=== PATIENT | female | born 1965 | race Caucasian/White ===

== ENCOUNTER 2020-12-11 15:32 | Inpatient (IN) ==
[2020-12-11] MEDS ORDERED: MoRPHine SULFATE 4 MG/ML 1 ML CARP\\VIAL IV STA (15:37)
[2020-12-11] MEDS ORDERED: MoRPHine SULFATE 4 MG/ML 1 ML CARP\\VIAL ONE (15:39)
[2020-12-11] MEDS ORDERED: DIPHTHERIA/TETANUS/PERTUSSIS 0.5 ML SYR/VIAL IM ONE (15:49)
[2020-12-11] MEDS ORDERED: MoRPHine SULFATE 2 MG/ML CARP IV PRN (15:51)
--- NOTE | 2020-12-11 15:53 | Emergency Department Note ---
Impression & Plan Fractured tibia and fibula ED Provider Note NAME: SAHARA BLANK AGE: 55 SEX: F ARRIVES VIA: Ambulance INFORMANT: Patient, ED PROVIDER(S): Albert Perez MD CHIEF COMPLAINT: Left leg fracture. 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 She was given 2 g of Ancef by EMS. There is a punctate wound at the site of deformity of the lower third of her left lower leg. Distal PMS intact. Prior to today the patient denies any recent fevers, chills, cough, congestion, GI or symptoms. On arrival the patient is uncomfortable, but in NAD, AF with HR 100s and BP 170s/110s in the setting of her pain and VS otherwise stable. Left lower leg distal third deformity with punctate wound at the site of deformity of the lower third of her left lower leg. Distal PMS intact. Unable to probe deeply with sterile swab and so open fx less likely at this time. Case was d/w with EDVIN Sears orthopedic surgery on-call. Appreciate recommendation for medicine admission and plan for OR tomorrow. Leg splint per procedure not. Patient agrees with plan for admission. WBC, H/H and platelets within normal limits. Chemistry without metabolic acidosis. Creatinine 1.23 consistent with patient's clinically dry appearance. LFTs are unremarkable. COVID-19 PCR was negative. Case was d/w Magda Lubin PAC, with Dr. Su Man hospitalist who will evaluate the patient for admission. Triage Nursing notes reviewed and agree them. Prior medical records reviewed Vital Signs: reviewed and remarkable for tachycardia and hypertension in setting of pain. Differential diagnosis: Fracture, subluxation, dislocation, contusion, ligamentous injury, neurovascular, compartment syndrome, rhabdomyolysis, as well as other pathologies. ER treatment provided: See below. Diagnostics interpreted by me: Cardiac Monitoring: An order for continuous cardiac monitoring was placed and demonstrated normal sinus rhythm, 96 bpm, no ectopy. Laboratory studies: See below Imaging studies: See below Consultation(s): Dr. Sears, [facility] [place] orthopedic surgery on-call. Rose Burgos, Magda PAC, with Dr. Su Man hospitalist who will evaluate the patient for admission. 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 She was given 2 g of Ancef by EMS. There is a punctate wound at the site of deformity of the lower third of her left lower leg. Distal PMS intact. Prior to today the patient denies any recent fevers, chills, cough, congestion, GI or symptoms. ROS: See above HPI for pertinent positives & negatives. A total of 10 systems reviewed and were otherwise negative. PAST MEDICAL HISTORY:See Below PAST SURGICAL HISTORY:See Below FAMILY HISTORY:See Below SOCIAL HISTORY:See Below HOME MEDICATIONS:See Below ALLERGIES:See Below VITALS:See Below PHYSICAL EXAMINATION: GENERAL: Awake, alert, uncomfortable-appearing, in no distress HENT: Normocephalic, atraumatic. Oropharynx unremarkable. EYES: Normal conjunctiva. Sclera non-icteric. NECK: Supple. No nuchal rigidity. FROM. No JVD. RESPIRATORY: Clear to auscultation. CARDIAC: Regular rate, normal rhythm. Extremities warm and well perfused. Pulses equal. ABDOMEN: Soft, non-distended. No tenderness to palpation. No rebound or guarding. No masses. RECTAL: Deferred. MUSCULOSKELETAL: Chest examination reveals no tenderness. The back is symmetrical on inspection without obvious abnormality. There is no CVA tenderness to palpation. No joint edema. LOWER EXTREMITIES: Left lower leg distal third deformity with punctate wound at the site of deformity of the lower third of her left lower leg. Distal PMS intact. Unable to probe deeply with sterile swab and so open fx less likely at this time. NEURO: Normal sensorium. No sensory or motor deficits noted. SKIN: No rash or jaundice noted. ED COURSE: Procedures: Splint Care: Ortho glass splint was placed by the broker associate per my direction, with I applied gentle in-line traction for degree for reduction. I examined the splint and confirmed proper application/placement/position. Neurovascular status was intact both proximal and distal to the splinted area. Patient tolerated splinting well. Albert Perez MD Past Med/Surg History Medical History (Updated 12/12/20 @ 15:26 by Adolfo Jackson PA-C) Ascending aortic dissection Fractured tibia and fibula HTN (hypertension) Pleural effusion, bilateral Pneumonia due to COVID-19 virus Postcardiotomy syndrome Type 2 diabetes mellitus Surgical History History of appendectomy History of History of hysterectomy History of tonsillectomy Hx of sinus surgery S/P aortic dissection repair emergent surgical repair by Dr. Magana with replacement of the ascending aorta and hemiarch with a 20mm Gelwave graft. 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: No Beliefs That Will Affect Care: Catholic marital status: Current Living Situation: Spouse current occupation: Retired Other Information That Helps Us Care for You: No Feels Safe at Home: Yes Safety Concerns: Feels Safe At This Time Assistive Devices: None Allergies Allergies Allergy/AdvReac Type Severity Reaction Status Date / Time lisinopril AdvReac Intermediate Cough Verified 12/11/20 17:48 Home Meds Home Medications Medication Instructions Recorded Confirmed metformin 500 mg tablet 500 mg PO BIDM 02/15/19 12/11/20 amlodipine 5 mg tablet 10 mg PO DAILY 04/14/20 12/11/20 potassium chloride 20 mEq 20 meq PO DAILY 05/23/20 12/11/20 tablet,extended release empagliflozin 10 mg tablet 10 mg PO DAILY 12/11/20 12/11/20 (Jardiance) Previous Rx's Medication Instructions Recorded furosemide 40 mg tablet 40 mg PO UD #0 tab 05/26/20 metoprolol tartrate 50 mg tablet 150 mg PO BID #180 tab 05/26/20 omeprazole magnesium 20 mg 20 mg PO DAILY #30 tab 05/26/20 tablet,delayed release (Prilosec OTC) rosuvastatin 10 mg tablet (Crestor) 10 mg PO QAM #30 tab 05/26/20 spironolactone 25 mg tablet 12.5 mg PO DAILY #30 tab 05/26/20 Results & Data (ED) Vital Signs Vital Signs - 24 hr 12/11/20 15:35 12/11/20 15:39 12/11/20 15:50 Temperature 37.2 C Temperature Source Oral Pulse Rate 100 H 100 H Pulse Rate from SpO2 Sensor 100 H Respiratory Rate 19 31 H Respiratory Effort / Characteristics Non-Labored Spontaneous Respiratory Depth Normal Respiratory Pattern Regular Blood Pressure 170/110 H 170/110 H Blood Pressure Mean 130 130 Blood Pressure Position Lying Pulse Oximetry 100 100 100 Oxygen Delivery Method Room Air Room Air Oxygen Flow Rate Sepsis Recent Fever Within 48 Hours No Sepsis New/Unexplained Change in Mental Status N/A Sepsis Action Taken by Nursing No Action Required 12/11/20 16:40 12/11/20 17:00 12/11/20 17:30 Temperature Temperature Source Pulse Rate 90 99 H 84 Pulse Rate from SpO2 Sensor 90 99 H 84 Respiratory Rate 16 19 Respiratory Effort / Characteristics Respiratory Depth Respiratory Pattern Blood Pressure 151/91 H 164/100 H 140/100 Blood Pressure Mean 111 121 113 Blood Pressure Position Pulse Oximetry 100 100 100 Oxygen Delivery Method Nasal Cannula Oxygen Flow Rate 2 Sepsis Recent Fever Within 48 Hours Sepsis New/Unexplained Change in Mental Status Sepsis Action Taken by Nursing Laboratory Data Attestation: I reviewed the patient's lab results. Result diagrams: 12/12/20 06:37 12/12/20 06:37 Lab Results 12/11/20 12/11/20 12/11/20 Range/Units 16:09 16:09 16:24 WBC (4.8-10.8) K/uL RBC (4.2-5.4) M/uL Hgb (12.0-16.0) g/dL Hct (37-47) % MCV (80-100) fL MCH (25-34) pg MCHC (32-36) g/dL RDW Std Deviation (36.4-46.3) fL RDW Coeff of Elaina (11.5-14.5) % Plt Count (130-400) K/uL MPV (7.4-10.4) fL Immature Gran % (Auto) % Neut % (Auto) % Lymph % (Auto) % Garland % (Auto) % Eos % (Auto) % Baso % (Auto) % Neut # (Auto) (1.4-6.5) K/uL Lymph # (Auto) (1.2-3.4) K/uL Garland # (Auto) (0.11-0.59) K/uL Eos # (Auto) (0-0.5) K/uL Baso # (Auto) (0-0.2) K/uL Immature Gran # (Auto) (0.00-0.02) K/uL PT 10.2 (9.0-12.0) Seconds INR 1.0 (0.9-1.1) Sodium (136-145) mmol/L Potassium (3.5-5.1) mmol/L Chloride (98-107) mmol/L Carbon Dioxide (21-32) mmol/L Anion Gap (3-11) BUN (7-18) mg/dl Creatinine (0.6-1.2) mg/dl Est Cr Clr Drug Dosing ml/min Est GFR ( Amer) ml/min Est GFR (Non-Af Amer) ml/min BUN/Creatinine Ratio (10-20) Glucose (70-99) mg/dl Calcium (8.5-10.1) mg/dl Total Bilirubin (0.2-1) mg/dl AST (15-37) U/L ALT (12-78) U/L Alkaline Phosphatase (45-117) U/L Total Protein (6.4-8.2) gm/dl Albumin (3.4-5.0) gm/dl Globulin (2.5-4.0) gm/dl Albumin/Globulin Ratio (0.9-2) COVID-19 Eval Order Covid19 at [facility] SARS-CoV-2 (PCR) NEGATIVE (Negative) Blood Type Antibody Screen 12/11/20 12/11/20 12/11/20 Range/Units 16:24 16:24 16:25 WBC 6.33 (4.8-10.8) K/uL RBC 4.36 (4.2-5.4) M/uL Hgb 12.8 (12.0-16.0) g/dL Hct 38.1 (37-47) % MCV 87.4 (80-100) fL MCH 29.4 (25-34) pg MCHC 33.6 (32-36) g/dL RDW Std Deviation 41.9 (36.4-46.3) fL RDW Coeff of Elaina 13.1 (11.5-14.5) % Plt Count 282 (130-400) K/uL MPV 10.2 (7.4-10.4) fL Immature Gran % (Auto) 0.2 % Neut % (Auto) 69.4 % Lymph % (Auto) 25.4 % Garland % (Auto) 4.1 % Eos % (Auto) 0.6 % Baso % (Auto) 0.3 % Neut # (Auto) 4.39 (1.4-6.5) K/uL Lymph # (Auto) 1.61 (1.2-3.4) K/uL Garland # (Auto) 0.26 (0.11-0.59) K/uL Eos # (Auto) 0.04 (0-0.5) K/uL Baso # (Auto) 0.02 (0-0.2) K/uL Immature Gran # (Auto) 0.01 (0.00-0.02) K/uL PT (9.0-12.0) Seconds INR (0.9-1.1) Sodium 135 L (136-145) mmol/L Potassium 3.6 (3.5-5.1) mmol/L Chloride 102 (98-107) mmol/L Carbon Dioxide 23 (21-32) mmol/L Anion Gap 10.0 (3-11) BUN 24 H (7-18) mg/dl Creatinine 1.23 H (0.6-1.2) mg/dl Est Cr Clr Drug Dosing 48.7 ml/min Est GFR ( Amer) 57.2 ml/min Est GFR (Non-Af Amer) 49.3 ml/min BUN/Creatinine Ratio 19.4 (10-20) Glucose 170 H (70-99) mg/dl Calcium 9.2 (8.5-10.1) mg/dl Total Bilirubin 0.3 (0.2-1) mg/dl AST 20 (15-37) U/L ALT 25 (12-78) U/L Alkaline Phosphatase 68 (45-117) U/L Total Protein 8.0 (6.4-8.2) gm/dl Albumin 3.7 (3.4-5.0) gm/dl Globulin 4.3 H (2.5-4.0) gm/dl Albumin/Globulin Ratio 0.9 (0.9-2) COVID-19 Eval Order SARS-CoV-2 (PCR) (Negative) Blood Type A Positive Antibody Screen NEGATIVE Administered Medications Amlodipine Besylate (Amlodipine Besylate 5 Mg Tab) 10 mg PO DAILY ZOHREH Stop: 01/11/21 08:59 Last Admin: 12/12/20 09:01 Dose: Not Given Documented by: [id number] Aspirin (Aspirin 81 Mg Ectab) 81 mg PO BID ZOHREH Stop: 01/11/21 20:59 Last Admin: 12/12/20 21:24 Dose: 81 mg Documented by: [id number] Docusate Sodium (Docusate Sodium 100 Mg Cap) 100 mg PO BID ZOHREH Stop: 01/11/21 20:59 Last Admin: 12/12/20 21:24 Dose: 100 mg Documented by: [id number] Cefazolin Sodium (Ancef 3000mg) 65 mls @ 130 mls/hr IV PREOP ZOHREH; Protocol Stop: 12/13/20 05:59 Last Infusion: 12/12/20 19:30 Dose: 0 mls/hr Documented by: [id number] Admin: 12/12/20 15:37 Dose: 130 mls/hr Documented by: [id number] Sodium Chloride (Nss 1000ml) 1,000 mls @ 100 mls/hr IV .Q10H ZOHREH Stop: 12/13/20 19:44 Last Admin: 12/12/20 19:59 Dose: 100 mls/hr Documented by: [id number] Cefazolin Sodium (Ancef 1000mg) 1,000 mg in 7.5 mls @ 2.5 mls/min IV Q8H ZOHREH; Protocol Stop: 12/13/20 07:02 Last Admin: 12/12/20 22:34 Dose: 2.5 mls/min Documented by: [id number] Insulin Aspart (Insulin Aspart 100 Units/Ml 3 Ml Pen) 0 units SC ACHS ZOHREH; Protocol Stop: 01/11/21 22:29 Last Admin: 12/12/20 22:32 Dose: 3 units Documented by: [id number] Cosigned by: [id number] Metoprolol Tartrate (Metoprolol Tartrate 50 Mg Tab) 150 mg PO BID [facility] Stop: 01/10/21 21:29 Last Admin: 12/12/20 21:24 Dose: 150 mg Documented by: [id number] Admin: 12/12/20 09:01 Dose: Not Given Documented by: [id number] Admin: 12/11/20 22:31 Dose: 150 mg Documented by: [id number] Morphine Sulfate (Morphine Sulfate 4 Mg/Ml 1 Ml Carp\Vial) 4 mg IV Q3H PRN PRN Reason: Pain (6,7,8,9,10) Stop: 12/25/20 21:14 Last Admin: 12/12/20 11:36 Dose: 4 mg Documented by: [id number] Admin: 12/12/20 07:07 Dose: 4 mg Documented by: [id number] Ondansetron HCl (Ondansetron Inj 2 Mg/Ml 2 Ml Vial) 4 mg IV Q6H PRN PRN Reason: Nausea Stop: 01/10/21 21:14 Last Admin: 12/12/20 07:07 Dose: 4 mg Documented by: [id number] Admin: 12/11/20 21:25 Dose: 4 mg Documented by: [id number] Pantoprazole Sodium (Pantoprazole 40 Mg Tab) 40 mg PO DAILY [facility]; Protocol Stop: 01/11/21 08:59 Last Admin: 12/12/20 09:01 Dose: Not Given Documented by: [id number] Rosuvastatin Calcium (Rosuvastatin Calcium 10 Mg Tab) 10 mg PO QAM [facility] Stop: 01/11/21 08:59 Last Admin: 12/12/20 09:01 Dose: Not Given Documented by: [id number] Senna/Docusate Sodium (Docusate Sodium/Senna 50/8.6mg Tab) 2 tab PO HS [facility] Stop: 01/10/21 21:29 Last Admin: 12/12/20 21:25 Dose: 2 tab Documented by: [id number] Admin: 12/11/20 22:31 Dose: Not Given Documented by: [id number] Spironolactone (Spironolactone 12.5 Mg Tab) 12.5 mg PO DAILY [facility] Stop: 01/11/21 08:59 Last Admin: 12/12/20 09:00 Dose: Not Given Documented by: [id number] Discontinued Medications Bupivacaine HCl (Bupivacaine 0.5 % 5 Mg/1 Ml Mpf 30ml Vial) Confirm Administered Dose 30 ml .ROUTE .STK-MED ONE Stop: 12/12/20 15:36 Last Admin: 12/12/20 19:43 Dose: Not Given Documented by: [id number] Diphtheria/Pertussis/Tetanus Vacc (Diphtheria/Tetanus/Pertussis 0.5 Ml Syr/Vial) 0.5 ml IM .ONCE ONE Stop: 12/11/20 15:50 Last Admin: 12/11/20 17:04 Dose: 0.5 ml Documented by: [id number] Epinephrine HCl (Epinephrine Inj 1 Mg/Ml Amp) Confirm Administered Dose 1 mg .ROUTE .STK-MED ONE Stop: 12/12/20 15:36 Last Admin: 12/12/20 19:43 Dose: Not Given Documented by: [id number] Heparin Sodium (Porcine) (Heparin Sod 5,000 Unit/0.5 Ml Vial) 5,000 units SQ NOW STA Stop: 12/11/20 18:11 Last Admin: 12/11/20 18:38 Dose: Not Given Documented by: [id number] Sodium Chloride (Nss 1000ml) 1,000 mls @ 125 mls/hr IV .Q8H [facility]RE[facility] Stop: 01/10/21 15:59 Last Infusion: 12/11/20 21:17 Dose: 0 mls/hr Documented by: [id number] Admin: 12/11/20 16:00 Dose: 125 mls/hr Documented by: [id number] Lactated Ringer's (Lr) 1,000 mls @ 75 mls/hr IV .[id number] [facility]RE[facility] Stop: 12/12/20 10:34 Last Infusion: 12/12/20 10:36 Dose: 0 mls/hr Documented by: [id number] Admin: 12/11/20 21:30 Dose: 75 mls/hr Documented by: [id number] Promethazine HCl 12.5 mg/ (Sodium Chloride) 50.5 mls @ 202 mls/hr IV Q6H PRN PRN Reason: Nausea And Vomiting Stop: 01/10/21 22:59 Last Infusion: 12/12/20 19:30 Dose: 0 mls/hr Documented by: [id number] Infusion: 12/11/20 23:26 Dose: 0 mls/hr Documented by: [id number] Admin: 12/11/20 23:11 Dose: 202 mls/hr Documented by: [id number] Sodium Chloride (Nss 1000ml) 1,000 mls @ 15 mls/hr IV .Q24H ZOHREH Stop: 01/11/21 11:14 Last Infusion: 12/12/20 19:30 Dose: 0 mls/hr Documented by: [id number] Admin: 12/12/20 11:36 Dose: 15 mls/hr Documented by: [id number] Insulin Aspart (Insulin Aspart 100 Units/Ml 3 Ml Pen) 0 units SC Q6 [facility]; Protocol Stop: 01/10/21 21:44 Last Admin: 12/12/20 17:42 Dose: Not Given Documented by: [id number] Admin: 12/12/20 12:21 Dose: Not Given Documented by: [id number] Admin: 12/12/20 05:58 Dose: Not Given Documented by: [id number] Admin: 12/12/20 01:49 Dose: 2 units Documented by: [id number] Cosigned by: [id number] Admin: 12/11/20 22:30 Dose: 2 units Documented by: [id number] Cosigned by: [id number] Insulin Glargine (Insulin Glargine Solostar 100 Units/Ml 3 Ml Pen) 0 - 10 units SC BID [facility] Stop: 01/10/21 21:14 Last Admin: 12/11/20 21:52 Dose: Not Given Documented by: [id number] Morphine Sulfate (Morphine Sulfate 4 Mg/Ml 1 Ml Carp\Vial) 4 mg IV NOW STA Stop: 12/11/20 15:38 Last Admin: 12/11/20 15:40 Dose: 4 mg Documented by: [id number] Morphine Sulfate (Morphine Sulfate 4 Mg/Ml 1 Ml Carp\Vial) Confirm Administered Dose 4 mg .ROUTE .STK-MED ONE Stop: 12/11/20 15:40 Last Admin: 12/11/20 16:42 Dose: Not Given Documented by: [id number] Morphine Sulfate (Morphine Sulfate 2 Mg/Ml Carp) 2 mg IV Q1H PRN PRN Reason: Moderate Pain (Rating 3,4,5,6) Stop: 12/25/20 15:50 Last Admin: 12/11/20 17:00 Dose: 2 mg Documented by: [id number] Morphine Sulfate (Morphine Sulfate 4 Mg/Ml 1 Ml Carp\Vial) 4 mg IV Q1H PRN PRN Reason: Severe Pain (Rating 7,8,9,10) Stop: 12/25/20 15:50 Last Admin: 12/11/20 19:08 Dose: 4 mg Documented by: [id number] Admin: 12/11/20 17:57 Dose: 4 mg Documented by: [id number] Scopolamine (Scopolamine 1 Mg Tdsy) Confirm Administered Dose 1 mg TD .STK-MED ONE Stop: 12/12/20 14:54 Last Admin: 12/12/20 14:54 Dose: 1 mg Documented by: [id number] Imaging Data Radiologist's Impression: Tibia/Fibula X-Ray 12/11/20 15:37 XR tibia fibula LT 2V HISTORY: 55 years-old Female fracture acute trauma of the left lower leg COMPARISON: None TECHNIQUE: 2 views of the left tibia and fibula FINDINGS: Acute comminuted fracture of the mid to distal diaphyseal tibia demonstrating a few degrees of apex volar and lateral angulation with mild volar and lateral displacement of a few millimeters. Acute comminuted fracture of the distal fibular diaphysis demonstrates apex volar and lateral angulation with medial displacement of a few millimeters. Additionally, there is an acute fracture involving the distal aspect of the lateral malleolus. Ankle mortise appears intact. Soft tissue swelling of the lower leg and ankle. No opaque foreign body. IMPRESSION: 1. Acute, comminuted, angulated and mildly displaced fracture of the mid to distal tibial diaphysis. 2. Acute comminuted, angulated and displaced fracture of the distal fibula. ACT 112: Negative or not required by law. The above report was generated using voice recognition software. It may contain grammatical, syntax or spelling errors. Electronically signed by: Randy Ovalles M.D. 12/11/2020 4:27 PM Chest X-Ray 12/11/20 17:24 XR chest 1V portable HISTORY: 55 years-old Female pre op preoperative exam. No acute chest complaints COMPARISON: Chest radiograph 05/24/2020 TECHNIQUE: Portable AP view of the chest FINDINGS: Cardiac silhouette is enlarged. Prior median sternotomy. Calcified plaque of the thoracic aorta. No pneumothorax, pleural effusion, airspace consolidation or overt pulmonary edema. No acute fracture. IMPRESSION: No acute process. ACT 112: Negative or not required by law. The above report was generated using voice recognition software. It may contain grammatical, syntax or spelling errors. Electronically signed by: Randy Ovalles M.D. 12/11/2020 6:42 PM Discharge Plan Visit Data Chief Complaint: Leg Injury/Pain ED Provider: Albert Perez Discharge Problem: Fractured tibia and fibula Patient Disposition: Admitted As Inpatient Discharge Instructions Interventions: ED Discharge Assessment Last Done: 12/11/20 20:55
[2020-12-11] MEDS ORDERED: SODIUM CHLORIDE 0.9% 1000ML 1,000 ML IV SCH (16:00)
--- NOTE | 2020-12-11 16:28 | XRay Report ---
XR tibia fibula LT 2V HISTORY: 55 years-old Female fracture acute trauma of the left lower leg COMPARISON: None TECHNIQUE: 2 views of the left tibia and fibula FINDINGS: Acute comminuted fracture of the mid to distal diaphyseal tibia demonstrating a few degrees of apex v olar and lateral angulation with mild volar and lateral displacement of a few millimeters. Acute comminuted fracture of the distal fibular diaphysis demonstrates apex volar and lateral angulat ion with medial displacement of a few millimeters. Additionally, there is an acute fracture involving the distal aspect of the lateral malleolus. Ankle mortise appears intact. Soft tissue swelling of th e lower leg and ankle. No opaque foreign body. IMPRESSION: 1. Acute, comminuted, angulated and mildly displaced fracture of the mid to distal tibial diaphysis. 2. Acute comminuted, angulated and displaced fracture of the distal fibula. ACT 112: Negative or not required by law. The above report was generated using voice recognition software. It may contain grammatical, syntax o r spelling errors. Electronically signed by: Randy Ovalles M.D. 12/11/2020 4:27 PM
[2020-12-11 16:33] LABS: Basophils # (auto) 0.02 K/uL (0-0.2); Basophils % (auto) 0.3 %; Eosinophils # (auto) 0.04 K/uL (0-0.5); Eosinophils % (auto) 0.6 %; Hematocrit (blood only) 38.1 % (37-47); Hemoglobin 12.8 g/dL (12.0-16.0); Immature Granulocytes # (auto) 0.01 K/uL (0.00-0.02); Immature Granulocytes % (auto) 0.2 %; Lymphocytes # (auto) 1.61 K/uL (1.2-3.4); Lymphocytes % (auto) 25.4 %; Mean Corpuscular Hemoglobin 29.4 pg (25-34); Mean Corpuscular Hgb Conc 33.6 g/dL (32-36); Mean Corpuscular Volume 87.4 fL (80-100); Mean Platelet Volume 10.2 fL (7.4-10.4); Monocytes # (auto) 0.26 K/uL (0.11-0.59); Monocytes % (auto) 4.1 %; Neutrophils # (auto) 4.39 K/uL (1.4-6.5); Neutrophils % (auto) 69.4 %; Platelet Count 282 K/uL (130-400); RDW Coefficient of Variation 13.1 % (11.5-14.5); RDW Standard Deviation 41.9 fL (36.4-46.3); Red Blood Count 4.36 M/uL (4.2-5.4); White Blood Count 6.33 K/uL (4.8-10.8)
[2020-12-11 16:45] LABS: Prothrombin Time 10.2 Seconds (9.0-12.0)
[2020-12-11 16:50] LABS: Albumin Level 3.7 gm/dl (3.4-5.0); BUN Creatinine Ratio 19.4 (10-20); Calcium 9.2 mg/dl (8.5-10.1); Creatinine Clr Calc Pharmacy 48.7 ml/min; Est GFR (African American) 57.2 ml/min; Est GFR (Non-African American) 49.3 ml/min; Potassium 3.6 mmol/L (3.5-5.1)
[2020-12-11 16:53] LABS: Albumin Globulin Ratio 0.9 (0.9-2); Bilirubin,Total 0.3 mg/dl (0.2-1); Globulin 4.3 gm/dl (2.5-4.0)
[2020-12-11] MEDS: MoRPHine SULFATE 4 MG/ML 1 ML CARP\\VIAL IV PRN ×2 (17:57→19:08)
[2020-12-11] MEDS ORDERED: HEPARIN SOD 5,000 UNIT/0.5 ML VIAL SQ STA (18:10)
--- NOTE | 2020-12-11 18:39 | History & Physical Report ---
Date of Service December 11, 2020 Assessment & Plan (1) Fractured tibia and fibula: Plan: This is a 55-year-old female who has a past medical history of type a aortic dissection status post repair complicated by postoperative A. 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 Xray: IMPRESSION: 1. Acute, comminuted, angulated and mildly displaced fracture of the mid to distal tibial diaphysis. 2. Acute comminuted, angulated and displaced fracture of the distal fibula. admit to med/surg orthopedics consulted - discussed with Adolfo, OR tomorrow 12/12 obtain ecg/cxr for cardiac clearance Tdap administered in ED discussed case with Dr. 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 Goff Prescribed regimen of lasix, aldactone and metoprolol; however currently only taking metoprolol will hold lasix for now given pre op status (4) Type 2 diabetes mellitus: Plan: last a1c 8.4 on 12/07 hold metformin and Jardiance (pt takes sparingly) lantus/novolog per protocol consult glycemic pharmacy (5) HTN (hypertension): Plan: BP elevated in ED likely 2/2 to pain continue metoprolol and amlodipine monitor closely (6) DVT prophylaxis: Plan: hold for now given likely to OR in a.m. ; post operatively recommend chemical prophylaxis when hemostasis acheived Dispo: med/surg PCP: Юлия Full Code Pt was seen and examined in collaboration with Dr. Blue, please see addendum History of Present Illness Chief Complaint: Fall prior to arrival. Primary Care Provider: Gulshan Redman DO This is a 55-year-old female who has a past medical history of type a aortic dissection status post repair complicated by postoperative A. fib and post cardiotomy syndrome requiring thoracentesis of left lung x3 and treatment with anti-inflammatories and medical management, HTN, HLD, T2DM, hx covid-19, who presents to ED after sustaining mechanical fall. She states she was opening the garage door and felt like she might have slipped on a wet surface, felt her leg go out underneath her and fell on her left side. She had immediate pain and was unable to get up. EMS was summoned. There was initial concern for possible open fracture secondary to puncture wound to left lateral leg. She received 2g ancef by EMS. She had a puncture wound and obvious deformity to LLE. Xray obtained revealed Acute, comminuted, angulated and mildly displaced fracture of the mid to distal tibial diaphysis & Acute comminuted, angulated and displaced fracture of the distal fibula. Orthopedics was consulted to recommended closed reduction, splinting and plan for OR tomorrow. Pt currently complains of 9/10 pain. She denies numbness or tingling. Prior to todays fall she denies recent illness, f/c/s, chest pain, sob, cough, n/v/d, change in bowel or urinary habits. She follows closely with Dr. Goff and Tatiana Rose 2/ to hx of type a thoracic aorta dissection s/p repair. Her last echo was 05/2020 which revealed normal EF, grade 1 diastolic dysfunction, small pericardial effusion. She states she occasionally gets chest pain when walking up more than 5 steps. It does not happen every time but when it does it resolves immediately with rest. She also admits to stopping her lasix, aldactone and potassium. She states she talked to a provider and it was okay to do so. She denies any weight gain, orthopnea or edema. Her was at bedside and was replaced by their daughter. Allergies Allergy/AdvReac Type Severity Reaction Status Date / Time lisinopril AdvReac Intermediate Cough Verified 12/11/20 17:48 Home Medications Medication Instructions Recorded Confirmed Type metformin 500 mg tablet 500 mg PO BIDM 02/15/19 12/11/20 History amlodipine 5 mg tablet 10 mg PO DAILY 04/14/20 12/11/20 History potassium chloride 20 mEq 20 meq PO DAILY 05/23/20 12/11/20 History tablet,extended release furosemide 40 mg tablet 40 mg PO UD #0 tab 05/26/20 12/11/20 Rx metoprolol tartrate 50 mg tablet 150 mg PO BID #180 tab 05/26/20 12/11/20 Rx omeprazole magnesium 20 mg 20 mg PO DAILY #30 tab 05/26/20 12/11/20 Rx tablet,delayed release (Prilosec OTC) rosuvastatin 10 mg tablet (Crestor) 10 mg PO QAM #30 tab 05/26/20 12/11/20 Rx spironolactone 25 mg tablet 12.5 mg PO DAILY #30 tab 05/26/20 12/11/20 Rx empagliflozin 10 mg tablet 10 mg PO DAILY 12/11/20 12/11/20 History (Jardiance) acetaminophen 325 mg tablet 650 mg PO Q4H PRN #60 tab 12/15/20 Rx aspirin 81 mg tablet,delayed 81 mg PO BID #60 tab 12/15/20 Rx release oxycodone 5 mg tablet 10 mg PO Q4H PRN #20 tab 12/15/20 Rx polyethylene glycol 3350 17 gram 17 g PO DAILY PRN #14 ea 12/15/20 Rx oral powder packet (Miralax) sennosides 8.6 mg-docusate sodium 2 tab PO HS #10 tab 12/15/20 Rx 50 mg tablet (Senokot-S) oxycodone-acetaminophen 5 mg-325 1 tab PO Q6H PRN #30 tab 12/22/20 Rx mg tablet (Percocet) Past Med/Surg History Medical History Ascending aortic dissection Fractured tibia and fibula HTN (hypertension) Pleural effusion, bilateral Pneumonia due to COVID-19 virus Postcardiotomy syndrome Type 2 diabetes mellitus Surgical History History of appendectomy History of History of hysterectomy History of tonsillectomy Hx of sinus surgery S/P aortic dissection repair emergent surgical repair by Dr. Magana with replacement of the ascending aorta and hemiarch with a 20mm Gelwave graft. -03/2020 Family History Brother , 35 Sudden cardiac Sister , 65 Sudden cardiac Mother Sudden cardiac , Onset Age: 83 Social History Smoking Status: Never smoker Second Hand Exposure: No; Hx Alcohol Use: No Hx Substance Use: No Preferred Language: Com[place]an Communication Ability: Effective Birth Certificate Clerk Required: No Beliefs That Will Affect Care: Yazdanism marital status: Current Living Situation: Spouse current occupation: Retired Feels Safe at Home: Yes Assistive Devices: Walker Review of Systems Review of Systems: All systems reviewed & are unremarkable except as noted in HPI & below Physical Exam Physical Exam: Constitutional: WD/WN, F, in acute pain, vitals as above,lying in bed, pleasant, conversing easily Head: Normocephalic, Atraumatic Eyes: PERRL, conjunctivae normal, anicteric sclerae ENMT: external ear and nose normal, oropharynx normal Neck: trachea midline, no thyromegaly normal visual inspection Respiratory: normal respiratory effort, lungs clear to auscultation, no wheeze, rales, rhonchi. Normal insp/exp effort, no accessory muscle use Cardiovascular: RRR, no murmur, no edema Vessels: no JVD or carotid bruit Chest: sternal scar noted, normal inspection of chest Abdomen: normal bowel sounds, soft, nontender, no hepatosplenomegaly Musculoskeletal: no cyanosis or clubbing, +puncture wound to LLE with obvious deformity to L pretibial surface, NVI distally Skin: no rashes, warm and dry normal turgor Neurologic: PERRL, EOMI, accommodation nl, no face palsy, no dysarthria CN's II-XI intact bilaterally and moves all extremities Psychiatric: A+Ox3, euthymic affect Lymphatic: no cervical or axillary lymphadenopathy : deferred Results & Data Results & Data ([facility]) Vital Signs (Past 12 Hours) Vital Signs Temp Pulse Resp BP Pulse Ox 09/28/21 17:00 99 H 19 164/100 H 100 12/11/20 16:40 90 16 151/91 H 100 12/11/20 15:50 100 12/11/20 15:39 100 H 31 H 170/110 H 100 12/11/20 15:35 37.2 C 100 H 19 170/110 H 100 Diagnostic Findings Tibia/Fibula X-Ray 12/11/20 15:37 XR tibia fibula LT 2V HISTORY: 55 years-old Female fracture acute trauma of the left lower leg COMPARISON: None TECHNIQUE: 2 views of the left tibia and fibula FINDINGS: Acute comminuted fracture of the mid to distal diaphyseal tibia demonstrating a few degrees of apex volar and lateral angulation with mild volar and lateral displacement of a few millimeters. Acute comminuted fracture of the distal fibular diaphysis demonstrates apex volar and lateral angulation with medial displacement of a few millimeters. Additionally, there is an acute fracture involving the distal aspect of the lateral malleolus. Ankle mortise appears intact. Soft tissue swelling of the lower leg and ankle. No opaque foreign body. IMPRESSION: 1. Acute, comminuted, angulated and mildly displaced fracture of the mid to distal tibial diaphysis. 2. Acute comminuted, angulated and displaced fracture of the distal fibula. ACT 112: Negative or not required by law. The above report was generated using voice recognition software. It may contain grammatical, syntax or spelling errors. Electronically signed by: Randy Ovalles M.D. 12/11/2020 4:27 PM Medications Administered Medication List Sodium Chloride (Nss 1000ml) 1,000 mls @ 125 mls/hr IV .Q8H ZOHREH Stop: 01/10/21 15:59 Last Admin: 12/11/20 16:00 Dose: 125 mls/hr Documented by: [id number] Morphine Sulfate (Morphine Sulfate 2 Mg/Ml Carp) 2 mg IV Q1H PRN PRN Reason: Moderate Pain (Rating 3,4,5,6) Stop: 12/25/20 15:50 Last Admin: 12/11/20 17:00 Dose: 2 mg Documented by: [id number] Discontinued Medications Diphtheria/Pertussis/Tetanus Vacc (Diphtheria/Tetanus/Pertussis 0.5 Ml Syr/Vial) 0.5 ml IM .ONCE ONE Stop: 12/11/20 15:50 Last Admin: 12/11/20 17:04 Dose: 0.5 ml Documented by: [id number] Morphine Sulfate (Morphine Sulfate 4 Mg/Ml 1 Ml Carp\Vial) 4 mg IV NOW STA Stop: 12/11/20 15:38 Last Admin: 12/11/20 15:40 Dose: 4 mg Documented by: [id number] Morphine Sulfate (Morphine Sulfate 4 Mg/Ml 1 Ml Carp\Vial) Confirm Administered Dose 4 mg .ROUTE .STK-MED ONE Stop: 12/11/20 15:40 Last Admin: 12/11/20 16:42 Dose: Not Given Documented by: [id number] COVID-19 Results Results COVID-19 Adm Lab Results: RBC 3.24 M/uL (4.2-5.4) L 12/15/20 WBC 4.90 K/uL (4.8-10.8) 12/15/20 Hgb 9.3 g/dL (12.0-16.0) L 12/15/20 Hct 28.3 % (37-47) L 12/15/20 Plt Count 205 K/uL (130-400) 12/15/20 Neutrophils (%) (Auto) 60.2 % 12/12/20 Lymphocytes (%) (Auto) 30.8 % 12/12/20 Monocytes # (Auto) 0.42 K/uL (0.11-0.59) 12/12/20 Eosinophils # (Auto) 0.05 K/uL (0-0.5) 12/12/20 Immature Granulocyte % (Auto) 0.2 % 12/12/20 Neutrophils # (Auto) 3.36 K/uL (1.4-6.5) 12/12/20 Lymphocytes # (Auto) 1.72 K/uL (1.2-3.4) 12/12/20 Monocytes # (Auto) 0.42 K/uL (0.11-0.59) 12/12/20 Eosinophils # (Auto) 0.05 K/uL (0-0.5) 12/12/20 Basophils # (Auto) 0.02 K/uL (0-0.2) 12/12/20 Immature Granulocyte # (Auto) 0.01 K/uL (0.00-0.02) 12/12/20 Na 139 mmol/L (136-145) 12/15/20 K 3.9 mmol/L (3.5-5.1) 12/15/20 Cl 109 mmol/L (98-107) H 12/15/20 CO2 23 mmol/L (21-32) 12/15/20 Anion Gap 7.0 (3-11) 12/15/20 BUN 20 mg/dl (7-18) H 12/15/20 Creatinine 1.06 mg/dl (0.6-1.2) 12/15/20 BUN/Creatinine Ratio 19.2 (10-20) 12/15/20 Glucose Level 143 mg/dl (70-99) H 12/15/20 Ca 8.4 mg/dl (8.5-10.1) L 12/15/20 Phosphorus Level 3.0 mg/dl (2.5-4.9) 12/15/20 Total Bilirubin 0.6 mg/dl (0.2-1) 12/12/20 AST/SGOT 10 U/L (15-37) L 12/12/20 ALT/SGPT 21 U/L (12-78) 12/12/20 Alkaline Phosphatase 69 U/L (45-117) 12/12/20 Total Protein 7.5 gm/dl (6.4-8.2) 12/12/20 Albumin 3.5 gm/dl (3.4-5.0) 12/12/20 Globulin 4.0 gm/dl (2.5-4.0) 12/12/20 Albumin/Globulin Ratio 0.9 (0.9-2) 12/12/20 PTT 26.0 Seconds (21.0-31.0) 12/12/20 INR 1.0 (0.9-1.1) 12/12/20 COVID-19 PCR NEGATIVE (Negative) 12/11/20 Chest X-Ray 12/11/20 Code Status & VTE Plan Code Status FULL CODE VTE Prophylaxis Plan VTE Prophylaxis will be ordered: No Supervising Physician Co-Signing Physician Notes Pt was seen and examined. Agreed with Rose GAMA exam, assessment and plan. 55-year-old female who has a past medical history of type a aortic dissection status post repair complicated by postoperative A. fib and post cardiotomy syndrome requiring thoracentesis of left lung x3 and treatment with anti- inflammatories and medical management, HTN, HLD, T2DM, hx covid-19 presents to ED after sustaining mechanical fall. Pt said that she fell when she was opened the garage door where she slipped. Xray done in the ER showed Acute, comminuted, angulated and mildly displaced fracture of the mid to distal tibial diaphysis & Acute comminuted, angulated and displaced fracture of the distal fibula. Orthopedics was consulted to recommended closed reduction, splinting and plan for OR tomorrow. she had hx of type a thoracic aorta dissection s/p repair. Her last echo was 05/2020 which revealed normal EF, grade 1 diastolic dysfunction, small pericardial effusion. Currently denies any chest pain, palpitation and SOB. Continue pain control. Cardiology consult for preop surgery clearance. Will make NPO after midnight. MD Su
--- NOTE | 2020-12-11 18:43 | XRay Report ---
XR tibia fibula LT 2V HISTORY: 55 years-old Female post splint acute left lower leg pain with fractures COMPARISON: Tibia and fibula radiographs of same day at 3:42 PM TECHNIQUE: 2 views of the left tibia and fibula FINDINGS: Acute comminuted displaced and angulated distal tibial and fibular fractures redemonstrated with unch anged alignment. Status post casting. Soft tissue swelling redemonstrated. No opaque foreign body. IMPRESSION: Status post casting of the acute, comminuted, angulated and displaced distal tibial and f ibular fractures with unchanged alignment. ACT 112: Negative or not required by law. The above report was generated using voice recognition software. It may contain grammatical, syntax o r spelling errors. Electronically signed by: Randy Ovalles M.D. 12/11/2020 6:41 PM
--- NOTE | 2020-12-11 18:44 | XRay Report ---
XR chest 1V portable HISTORY: 55 years-old Female pre op preoperative exam. No acute chest complaints COMPARISON: Chest radiograph 05/24/2020 TECHNIQUE: Portable AP view of the chest FINDINGS: Cardiac silhouette is enlarged. Prior median sternotomy. Calcified plaque of the thoracic aorta. No p neumothorax, pleural effusion, airspace consolidation or overt pulmonary edema. No acute fracture. IMPRESSION: No acute process. ACT 112: Negative or not required by law. The above report was generated using voice recognition software. It may contain grammatical, syntax o r spelling errors. Electronically signed by: Randy Ovalles M.D. 12/11/2020 6:42 PM
[2020-12-11] MEDS ORDERED: ACETAMINOPHEN 325 MG TAB PO PRN (21:15)
[2020-12-11] MEDS ORDERED: DEXTROSE 50% 50 ML SYRINGE IV PRN (21:15)
[2020-12-11] MEDS ORDERED: GLUCOSE 40% GEL 15 GM TUBE PO PRN (21:15)
[2020-12-11] MEDS ORDERED: INSULIN GLARGINE SOLOSTAR 100 UNITS/ML 3 ML PEN SC SCH (21:15)
[2020-12-11] MEDS ORDERED: CARBOHYDRATES FOR HYPOGLYCEMIA PO PRN (21:15)
[2020-12-11] MEDS ORDERED: NALOXONE HCL 0.4 MG/1 ML VIAL/CARP IV PRN (21:15)
[2020-12-11] MEDS ORDERED: GLUCOSE 10 TABS/TUBE PO PRN (21:15)
[2020-12-11] MEDS ORDERED: LACTATED RINGER'S 1,000 ML IV SCH (21:15)
[2020-12-11] MEDS ORDERED: POLYETHYLENE (MIRALAX) 17 GM PACK PO PRN (21:15)
[2020-12-11] MEDS ORDERED: oxyCODONE/ACETAMINOPHEN 5mg/325mg TAB PO PRN (21:15)
[2020-12-11] MEDS ORDERED: PHARMACY GLYCEMIC MGMT CONSULT PRN (21:15)
[2020-12-11] MEDS ORDERED: ALUMINUM/MAGNESIUM SUSP 30 ML UDC PO PRN (21:15)
[2020-12-11] MEDS ORDERED: MAGNESIUM HYDROXIDE SUSP 30 ML UDC PO PRN (21:15)
[2020-12-11] MEDS ORDERED: bisacodyL 10 MG SUPP PR PRN (21:15)
[2020-12-11] MEDS ORDERED: GLUCAGON FOR INJ 1 MG VIAL SQ PRN (21:15)
[2020-12-11] MEDS: ONDANSETRON INJ 2 MG/ML 2 ML VIAL IV PRN (21:25)
[2020-12-11] MEDS ORDERED: ONDANSETRON INJ 2 MG/ML 2 ML VIAL IV PRN (21:58)
[2020-12-11] MEDS: INSULIN ASPART 100 UNITS/ML 3 ML PEN SC SCH (22:30)
[2020-12-11] MEDS: DOCUSATE SODIUM/SENNA 50/8.6MG TAB PO SCH (22:31)
[2020-12-11] MEDS: METOPROLOL TARTRATE 50 MG TAB PO SCH (22:31)
[2020-12-11] MEDS ORDERED: PROMETHAZINE HCL 12.5 MG in SODIUM CHLORIDE 0.9% 50 ML IV PRN (23:00)
[2020-12-12] MEDS: INSULIN ASPART 100 UNITS/ML 3 ML PEN SC SCH ×5 (01:49→22:32)
[2020-12-12 06:59] LABS: Basophils # (auto) 0.02 K/uL (0-0.2); Basophils % (auto) 0.4 %; Eosinophils # (auto) 0.05 K/uL (0-0.5); Eosinophils % (auto) 0.9 %; Hematocrit (blood only) 38.5 % (37-47); Hemoglobin 12.6 g/dL (12.0-16.0); Immature Granulocytes # (auto) 0.01 K/uL (0.00-0.02); Immature Granulocytes % (auto) 0.2 %; Lymphocytes # (auto) 1.72 K/uL (1.2-3.4); Lymphocytes % (auto) 30.8 %; Mean Corpuscular Hgb Conc 32.7 g/dL (32-36); Mean Corpuscular Volume 88.5 fL (80-100); Mean Platelet Volume 10.1 fL (7.4-10.4); Monocytes # (auto) 0.42 K/uL (0.11-0.59); Monocytes % (auto) 7.5 %; Neutrophils # (auto) 3.36 K/uL (1.4-6.5); Neutrophils % (auto) 60.2 %; Platelet Count 292 K/uL (130-400); RDW Coefficient of Variation 13.2 % (11.5-14.5); RDW Standard Deviation 43.1 fL (36.4-46.3); Red Blood Count 4.35 M/uL (4.2-5.4); White Blood Count 5.58 K/uL (4.8-10.8)
[2020-12-12] MEDS: ONDANSETRON INJ 2 MG/ML 2 ML VIAL IV PRN (07:07)
[2020-12-12] MEDS: MoRPHine SULFATE 4 MG/ML 1 ML CARP\\VIAL IV PRN ×2 (07:07→11:36)
[2020-12-12 07:08] LABS: Prothrombin Time 10.3 Seconds (9.0-12.0)
[2020-12-12 07:30] LABS: Estimated Average Glucose 197 mg/dl; Hemoglobin A1C 8.5 % (4.5-5.6)
[2020-12-12 07:32] LABS: Albumin Level 3.5 gm/dl (3.4-5.0); BUN Creatinine Ratio 19.2 (10-20); Calcium 9.2 mg/dl (8.5-10.1); Creatinine Clr Calc Pharmacy 55.9 ml/min; Est GFR (African American) 67.7 ml/min; Est GFR (Non-African American) 58.4 ml/min; Magnesium 2.1 mg/dl (1.8-2.4); Potassium 3.9 mmol/L (3.5-5.1)
[2020-12-12 07:35] LABS: Albumin Globulin Ratio 0.9 (0.9-2); Bilirubin,Total 0.6 mg/dl (0.2-1); Total Protein 7.5 gm/dl (6.4-8.2)
--- NOTE | 2020-12-12 08:24 | Hospitalist Progress Note ---
Date of Service December 12, 2020 Assessment & Plan (1) Fractured tibia and fibula: Plan: This is a 55-year-old female who has a past medical history of type a aortic dissection status post repair complicated by postoperative A. 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 Xray: IMPRESSION: 1. Acute, comminuted, angulated and mildly displaced fracture of the mid to distal tibial diaphysis. 2. Acute comminuted, angulated and displaced fracture of the distal fibula. admit to med/surg Orthopedics consulted - plan for OR today 12/12 obtain ecg/cxr for cardiac clearance Tdap administered in ED Discussed case with Dr. Goff who follows pt in cardiology clinic - saw patient for preop evaluation Echo - Mild concentric LVH. No regional wall motion abnormality noted. LVEF 55 to 60%. Aortic valve is trileaflet. Aortic stenosis is absent. There is no significant aortic regurg. Mild aortic root dilatation is present with surgical repair and replacement of the ascending aorta appears intact. Compared to prior study in May 2020, there is no significant interval change. 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 Goff Prescribed regimen of lasix, aldactone and metoprolol; however currently only taking metoprolol will hold lasix for now given pre op status (4) Type 2 diabetes mellitus: Plan: last a1c 8.4 on 12/07 hold metformin and Jardiance (pt takes sparingly) lantus/novolog per protocol consult glycemic pharmacy (5) HTN (hypertension): Plan: BP elevated in ED likely 2/2 to pain continue metoprolol and amlodipine monitor closely (6) DVT prophylaxis: Plan: hold for now given going to OR today ; post operatively recommend chemical prophylaxis when hemostasis achieved Dispo: med/surg PCP: Юлия Full Code Admission and Anticipated Discharge Date Admission Date: December 11, 2020 Subjective Patient seen in follow-up of tibial, fibular fracture Pt is laying in bed, not in distress, however she does report some pain in her lower extremity Plan for OR later today Currently denies any chest pain, shortness of breath, palpitations, dizziness Seen by cardiology as well, for preop evaluation Review of Systems Review of Systems: All systems reviewed & are unremarkable except as noted in Subjective Physical Exam Physical Exam: Constitutional: WD/WN, F,lying in bed, in NAD Head: Normocephalic, Atraumatic Eyes: PERRL, EOMI, conjunctivae normal, anicteric sclerae ENMT: external ear and nose normal, oropharynx normal Neck: normal visual inspection Respiratory: normal respiratory effort, lungs clear to auscultation, no wheeze, rales, rhonchi. Normal insp/exp effort, no accessory muscle use Cardiovascular: RRR, no murmur, no edema Vessels: no JVD or carotid bruit Chest: sternal scar noted, normal inspection of chest Abdomen: normal bowel sounds, soft, nontender Musculoskeletal: +puncture wound to LLE, LLE in splint Skin: no rashes, warm and dry normal turgor Neurologic: PERRL, EOMI, no face palsy, no dysarthria, moves all extremities Psychiatric: A+Ox3, euthymic affect Results & Data Results & Data ([facility]) Vital Signs (Past 12 Hours) Vital Signs Temp Pulse Pulse Resp BP Pulse Ox 12/12/20 08:05 37.0 C 72 16 110/72 96 12/12/20 01:46 36.9 C 68 14 121/83 97 12/11/20 22:30 90 137/85 12/11/20 21:20 36.7 C 88 18 159/91 H 99 Laboratory Results 12/12/20 12/12/20 12/12/20 Range/Units 06:37 06:37 06:37 WBC 5.58 (4.8-10.8) K/uL RBC 4.35 (4.2-5.4) M/uL Hgb 12.6 (12.0-16.0) g/dL Hct 38.5 (37-47) % MCV 88.5 (80-100) fL MCH 29.0 (25-34) pg MCHC 32.7 (32-36) g/dL RDW Std Deviation 43.1 (36.4-46.3) fL RDW Coeff of Elaina 13.2 (11.5-14.5) % Plt Count 292 (130-400) K/uL MPV 10.1 (7.4-10.4) fL Immature Gran % (Auto) 0.2 % Neut % (Auto) 60.2 % Lymph % (Auto) 30.8 % [place] % (Auto) 7.5 % Eos % (Auto) 0.9 % Baso % (Auto) 0.4 % Neut # (Auto) 3.36 (1.4-6.5) K/uL Lymph # (Auto) 1.72 (1.2-3.4) K/uL [place] # (Auto) 0.42 (0.11-0.59) K/uL Eos # (Auto) 0.05 (0-0.5) K/uL Baso # (Auto) 0.02 (0-0.2) K/uL Immature Gran # (Auto) 0.01 (0.00-0.02) K/uL PT 10.3 (9.0-12.0) Seconds INR 1.0 (0.9-1.1) APTT 26.0 (21.0-31.0) Seconds PTT Ratio 1.0 Sodium 137 (136-145) mmol/L Potassium 3.9 (3.5-5.1) mmol/L Chloride 105 (98-107) mmol/L Carbon Dioxide 27 (21-32) mmol/L Anion Gap 5.0 (3-11) BUN 21 H (7-18) mg/dl Creatinine 1.07 (0.6-1.2) mg/dl Est Cr Clr Drug Dosing 55.9 ml/min Est GFR ( Amer) 67.7 ml/min Est GFR (Non-Af Amer) 58.4 ml/min BUN/Creatinine Ratio 19.2 (10-20) Glucose 142 H (70-99) mg/dl POC Glucose (70-99) mg/dl Estimat Average Glucose mg/dl Hemoglobin A1c (4.5-5.6) % Calcium 9.2 (8.5-10.1) mg/dl Magnesium 2.1 (1.8-2.4) mg/dl Total Bilirubin 0.6 (0.2-1) mg/dl AST 10 L (15-37) U/L ALT 21 (12-78) U/L Alkaline Phosphatase 69 (45-117) U/L Total Protein 7.5 (6.4-8.2) gm/dl Albumin 3.5 (3.4-5.0) gm/dl Globulin 4.0 (2.5-4.0) gm/dl Albumin/Globulin Ratio 0.9 (0.9-2) Nasal Screen MRSA (PCR) (Negative) COVID-19 Eval Order SARS-CoV-2 (PCR) (Negative) Blood Type Antibody Screen 12/12/20 12/12/20 12/12/20 Range/Units 06:37 05:55 01:47 WBC (4.8-10.8) K/uL RBC (4.2-5.4) M/uL Hgb (12.0-16.0) g/dL Hct (37-47) % MCV (80-100) fL MCH (25-34) pg MCHC (32-36) g/dL RDW Std Deviation (36.4-46.3) fL RDW Coeff of Elaina (11.5-14.5) % Plt Count (130-400) K/uL MPV (7.4-10.4) fL Immature Gran % (Auto) % Neut % (Auto) % Lymph % (Auto) % [place] % (Auto) % Eos % (Auto) % Baso % (Auto) % Neut # (Auto) (1.4-6.5) K/uL Lymph # (Auto) (1.2-3.4) K/uL [place] # (Auto) (0.11-0.59) K/uL Eos # (Auto) (0-0.5) K/uL Baso # (Auto) (0-0.2) K/uL Immature Gran # (Auto) (0.00-0.02) K/uL PT (9.0-12.0) Seconds INR (0.9-1.1) APTT (21.0-31.0) Seconds PTT Ratio Sodium (136-145) mmol/L Potassium (3.5-5.1) mmol/L Chloride (98-107) mmol/L Carbon Dioxide (21-32) mmol/L Anion Gap (3-11) BUN (7-18) mg/dl Creatinine (0.6-1.2) mg/dl Est Cr Clr Drug Dosing ml/min Est GFR ( Amer) ml/min Est GFR (Non-Af Amer) ml/min BUN/Creatinine Ratio (10-20) Glucose (70-99) mg/dl POC Glucose 137 H 174 H (70-99) mg/dl Estimat Average Glucose 197 mg/dl Hemoglobin A1c 8.5 H (4.5-5.6) % Calcium (8.5-10.1) mg/dl Magnesium (1.8-2.4) mg/dl Total Bilirubin (0.2-1) mg/dl AST (15-37) U/L ALT (12-78) U/L Alkaline Phosphatase (45-117) U/L Total Protein (6.4-8.2) gm/dl Albumin (3.4-5.0) gm/dl Globulin (2.5-4.0) gm/dl Albumin/Globulin Ratio (0.9-2) Nasal Screen MRSA (PCR) (Negative) COVID-19 Eval Order SARS-CoV-2 (PCR) (Negative) Blood Type Antibody Screen 12/11/20 12/11/20 12/11/20 Range/Units 21:30 21:16 16:25 WBC (4.8-10.8) K/uL RBC (4.2-5.4) M/uL Hgb (12.0-16.0) g/dL Hct (37-47) % MCV (80-100) fL MCH (25-34) pg MCHC (32-36) g/dL RDW Std Deviation (36.4-46.3) fL RDW Coeff of Elaina (11.5-14.5) % Plt Count (130-400) K/uL MPV (7.4-10.4) fL Immature Gran % (Auto) % Neut % (Auto) % Lymph % (Auto) % [place] % (Auto) % Eos % (Auto) % Baso % (Auto) % Neut # (Auto) (1.4-6.5) K/uL Lymph # (Auto) (1.2-3.4) K/uL [place] # (Auto) (0.11-0.59) K/uL Eos # (Auto) (0-0.5) K/uL Baso # (Auto) (0-0.2) K/uL Immature Gran # (Auto) (0.00-0.02) K/uL PT (9.0-12.0) Seconds INR (0.9-1.1) APTT (21.0-31.0) Seconds PTT Ratio Sodium (136-145) mmol/L Potassium (3.5-5.1) mmol/L Chloride (98-107) mmol/L Carbon Dioxide (21-32) mmol/L Anion Gap (3-11) BUN (7-18) mg/dl Creatinine (0.6-1.2) mg/dl Est Cr Clr Drug Dosing ml/min Est GFR ( Amer) ml/min Est GFR (Non-Af Amer) ml/min BUN/Creatinine Ratio (10-20) Glucose (70-99) mg/dl POC Glucose 181 H (70-99) mg/dl Estimat Average Glucose mg/dl Hemoglobin A1c (4.5-5.6) % Calcium (8.5-10.1) mg/dl Magnesium (1.8-2.4) mg/dl Total Bilirubin (0.2-1) mg/dl AST (15-37) U/L ALT (12-78) U/L Alkaline Phosphatase (45-117) U/L Total Protein (6.4-8.2) gm/dl Albumin (3.4-5.0) gm/dl Globulin (2.5-4.0) gm/dl Albumin/Globulin Ratio (0.9-2) Nasal Screen MRSA (PCR) Negative (Negative) COVID-19 Eval Order SARS-CoV-2 (PCR) (Negative) Blood Type A Positive Antibody Screen NEGATIVE 12/11/20 12/11/20 12/11/20 Range/Units 16:24 16:24 16:24 WBC 6.33 (4.8-10.8) K/uL RBC 4.36 (4.2-5.4) M/uL Hgb 12.8 (12.0-16.0) g/dL Hct 38.1 (37-47) % MCV 87.4 (80-100) fL MCH 29.4 (25-34) pg MCHC 33.6 (32-36) g/dL RDW Std Deviation 41.9 (36.4-46.3) fL RDW Coeff of Elaina 13.1 (11.5-14.5) % Plt Count 282 (130-400) K/uL MPV 10.2 (7.4-10.4) fL Immature Gran % (Auto) 0.2 % Neut % (Auto) 69.4 % Lymph % (Auto) 25.4 % [place] % (Auto) 4.1 % Eos % (Auto) 0.6 % Baso % (Auto) 0.3 % Neut # (Auto) 4.39 (1.4-6.5) K/uL Lymph # (Auto) 1.61 (1.2-3.4) K/uL [place] # (Auto) 0.26 (0.11-0.59) K/uL Eos # (Auto) 0.04 (0-0.5) K/uL Baso # (Auto) 0.02 (0-0.2) K/uL Immature Gran # (Auto) 0.01 (0.00-0.02) K/uL PT 10.2 (9.0-12.0) Seconds INR 1.0 (0.9-1.1) APTT (21.0-31.0) Seconds PTT Ratio Sodium 135 L (136-145) mmol/L Potassium 3.6 (3.5-5.1) mmol/L Chloride 102 (98-107) mmol/L Carbon Dioxide 23 (21-32) mmol/L Anion Gap 10.0 (3-11) BUN 24 H (7-18) mg/dl Creatinine 1.23 H (0.6-1.2) mg/dl Est Cr Clr Drug Dosing 48.7 ml/min Est GFR ( Amer) 57.2 ml/min Est GFR (Non-Af Amer) 49.3 ml/min BUN/Creatinine Ratio 19.4 (10-20) Glucose 170 H (70-99) mg/dl POC Glucose (70-99) mg/dl Estimat Average Glucose mg/dl Hemoglobin A1c (4.5-5.6) % Calcium 9.2 (8.5-10.1) mg/dl Magnesium (1.8-2.4) mg/dl Total Bilirubin 0.3 (0.2-1) mg/dl AST 20 (15-37) U/L ALT 25 (12-78) U/L Alkaline Phosphatase 68 (45-117) U/L Total Protein 8.0 (6.4-8.2) gm/dl Albumin 3.7 (3.4-5.0) gm/dl Globulin 4.3 H (2.5-4.0) gm/dl Albumin/Globulin Ratio 0.9 (0.9-2) Nasal Screen MRSA (PCR) (Negative) COVID-19 Eval Order SARS-CoV-2 (PCR) (Negative) Blood Type Antibody Screen 12/11/20 12/11/20 Range/Units 16:09 16:09 WBC (4.8-10.8) K/uL RBC (4.2-5.4) M/uL Hgb (12.0-16.0) g/dL Hct (37-47) % MCV (80-100) fL MCH (25-34) pg MCHC (32-36) g/dL RDW Std Deviation (36.4-46.3) fL RDW Coeff of Elaina (11.5-14.5) % Plt Count (130-400) K/uL MPV (7.4-10.4) fL Immature Gran % (Auto) % Neut % (Auto) % Lymph % (Auto) % [place] % (Auto) % Eos % (Auto) % Baso % (Auto) % Neut # (Auto) (1.4-6.5) K/uL Lymph # (Auto) (1.2-3.4) K/uL [place] # (Auto) (0.11-0.59) K/uL Eos # (Auto) (0-0.5) K/uL Baso # (Auto) (0-0.2) K/uL Immature Gran # (Auto) (0.00-0.02) K/uL PT (9.0-12.0) Seconds INR (0.9-1.1) APTT (21.0-31.0) Seconds PTT Ratio Sodium (136-145) mmol/L Potassium (3.5-5.1) mmol/L Chloride (98-107) mmol/L Carbon Dioxide (21-32) mmol/L Anion Gap (3-11) BUN (7-18) mg/dl Creatinine (0.6-1.2) mg/dl Est Cr Clr Drug Dosing ml/min Est GFR ( Amer) ml/min Est GFR (Non-Af Amer) ml/min BUN/Creatinine Ratio (10-20) Glucose (70-99) mg/dl POC Glucose (70-99) mg/dl Estimat Average Glucose mg/dl Hemoglobin A1c (4.5-5.6) % Calcium (8.5-10.1) mg/dl Magnesium (1.8-2.4) mg/dl Total Bilirubin (0.2-1) mg/dl AST (15-37) U/L ALT (12-78) U/L Alkaline Phosphatase (45-117) U/L Total Protein (6.4-8.2) gm/dl Albumin (3.4-5.0) gm/dl Globulin (2.5-4.0) gm/dl Albumin/Globulin Ratio (0.9-2) Nasal Screen MRSA (PCR) (Negative) COVID-19 Eval Order Covid19 at [facility] SARS-CoV-2 (PCR) NEGATIVE (Negative) Blood Type Antibody Screen Medications Administered Current Inpatient Medications Acetaminophen (Acetaminophen 325 Mg Tab) 650 mg PO Q4H PRN PRN Reason: pain/fever Stop: 01/10/21 21:14 Al Hydrox/Mg Hydrox/Simethicone (Aluminum/Magnesium Susp 30 Ml Udc) 30 ml PO Q6H PRN PRN Reason: Dyspepsia Stop: 01/10/21 21:14 Amlodipine Besylate (Amlodipine Besylate 5 Mg Tab) 10 mg PO DAILY ZOHREH Stop: 01/11/21 08:59 Bisacodyl (Bisacodyl 10 Mg Supp) 10 mg PA DAILY PRN PRN Reason: Constipation Stop: 01/10/21 21:14 Dextrose (Dextrose 50% 50 Ml Syringe) 25 - 50 ml IV UD PRN; Protocol PRN Reason: Hypoglycemia Protocol Stop: 01/10/21 21:14 Glucagon (Glucagon For Inj 1 Mg Vial) 1 mg SQ UD PRN; Protocol PRN Reason: Hypoglycemia Protocol Stop: 01/10/21 21:14 Glucose (Glucose 10 Tabs/Tube) 4 - 8 tabs PO UD PRN; Protocol PRN Reason: Hypoglycemia Protocol Stop: 01/10/21 21:14 Glucose (Glucose 40% Gel 15 Gm Tube) 15 - 30 gm PO UD PRN; Protocol PRN Reason: Hypoglycemia Protocol Stop: 01/10/21 21:14 Lactated Ringer's (Lr) 1,000 mls @ 75 mls/hr IV .[id number] ZOHREH Stop: 12/12/20 10:34 Last Admin: 12/11/20 21:30 Dose: 75 mls/hr Documented by: Cefazolin Sodium (Ancef 3000mg) 65 mls @ 130 mls/hr IV PREOP ZOHREH; Protocol Stop: 12/13/20 05:59 Promethazine HCl 12.5 mg/ (Sodium Chloride) 50.5 mls @ 202 mls/hr IV Q6H PRN PRN Reason: Nausea And Vomiting Stop: 01/10/21 22:59 Last Infusion: 12/11/20 23:26 Dose: Infused Documented by: Insulin Aspart (Insulin Aspart 100 Units/Ml 3 Ml Pen) 0 units SC Q6 ZOHREH; Protocol Stop: 01/10/21 21:44 Last Admin: 12/12/20 05:58 Dose: Not Given Documented by: Magnesium Hydroxide (Magnesium Hydroxide Susp 30 Ml Udc) 30 ml PO Q6H PRN PRN Reason: Constipation Stop: 01/10/21 21:14 Metoprolol Tartrate (Metoprolol Tartrate 50 Mg Tab) 150 mg PO BID ZOHREH Stop: 01/10/21 21:29 Last Admin: 12/11/20 22:31 Dose: 150 mg Documented by: Miscellaneous (Carbohydrates For Hypoglycemia ) 15 - 30 gm PO UD PRN PRN Reason: Hypoglycemia Protocol Stop: 01/10/21 21:14 Miscellaneous Information (Pharmacy Glycemic Mgmt Consult) 1 ea N/A UD PRN; Protocol PRN Reason: Consult Stop: 01/10/21 21:14 Morphine Sulfate (Morphine Sulfate 4 Mg/Ml 1 Ml Carp\Vial) 4 mg IV Q3H PRN PRN Reason: Pain (6,7,8,9,10) Stop: 12/25/20 21:14 Last Admin: 12/12/20 07:07 Dose: 4 mg Documented by: Naloxone HCl (Naloxone Hcl 0.4 Mg/1 Ml Vial/Carp) 0.1 mg IV UD PRN PRN Reason: Opiate Overdose Stop: 01/10/21 21:14 Ondansetron HCl (Ondansetron Inj 2 Mg/Ml 2 Ml Vial) 4 mg IV Q6H PRN PRN Reason: Nausea Stop: 01/10/21 21:14 Last Admin: 12/12/20 07:07 Dose: 4 mg Documented by: Ondansetron HCl (Ondansetron Inj 2 Mg/Ml 2 Ml Vial) 4 mg IV Q8H PRN PRN Reason: Nausea Stop: 01/10/21 21:57 Oxycodone/Acetaminophen (Oxycodone/Acetaminophen 5mg/325mg Tab) 1 tab PO Q4H PRN PRN Reason: MODERATE Pain (4,5,6) & Pre PT Stop: 12/25/20 21:14 Oxycodone/Acetaminophen (Oxycodone/Acetaminophen 5mg/325mg Tab) 2 tab PO Q4H PRN PRN Reason: SEVERE Pain (7,8,9,10) Stop: 12/25/20 21:14 Pantoprazole Sodium (Pantoprazole 40 Mg Tab) 40 mg PO DAILY [facility]; Protocol Stop: 01/11/21 08:59 Polyethylene Glycol (Polyethylene (Miralax) 17 Gm Pack) 17 gm PO DAILY PRN PRN Reason: Constipation Stop: 01/10/21 21:14 Rosuvastatin Calcium (Rosuvastatin Calcium 10 Mg Tab) 10 mg PO QAM ZOHREH Stop: 01/11/21 08:59 Senna/Docusate Sodium (Docusate Sodium/Senna 50/8.6mg Tab) 2 tab PO HS [facility] Stop: 01/10/21 21:29 Last Admin: 12/11/20 22:31 Dose: Not Given Documented by: Spironolactone (Spironolactone 12.5 Mg Tab) 12.5 mg PO DAILY [facility] Stop: 01/11/21 08:59 (1) Fractured tibia and fibula Encounter type: initial encounter Laterality: left
--- NOTE | 2020-12-12 08:53 | Cardiology Consultation ---
Date of Consultation December 12, 2020 Assessment & Plan (1) Preoperative cardiovascular examination: (2) S/P aortic dissection repair: Patient describes limitation with climbing stairs that per her description to me sounds like deconditioning rather than angina. Stable cardiac signs and symptoms noted am. BP is well controlled, and her EKG is unchanged compared to prior. Echocardiogram with stable findings. Recommend proceeding to the OR with an estimated low risk of perioperative cardiac complication. Continue home doses of amlodipine, metoprolol, Aldactone, rosuvastatin. History of Present Illness Attending Physician: You Villatoro MD History of Present Illness Alma Rosa Rogel is a 55 year old female seen in cardiology consultation per the request of Maye Gupta PA-C for preoperative cardiology evaluation prior to proposed surgical intervention of left tibial and fibular fractures that occurred as a result of a mechanical fall. Patient known to the undersigned, as I have followed her as an outpatient. Chest x-ray performed 12/11/20 reveals no residual pleural effusion. EKG perfoermd 12/11/20 reveals normal sinus rhythm at 91 bpm with age undetermined inferior infarct pattern (chronic and noted in 05/2020) and no acute repolarization changes. Echocardiogram this am reveals normal wall motion, normal LVEF, no significant valvular pathology. Stable mild residual dilatation of the aortic root is present. Problem list: 1. Longstanding hypertension 2. Type 2 diabetes mellitus 3. Hepatitis C with negative HCV RNA 11/15/2019 4. Acute Covid infection March 2020 5. Ascending aortic aneurysm with type a dissection acute 04/08/2020 surgically repaired with 28 mm Gelweave graft of the ascending aorta and hemiarch with resuspension of the aortic valve 6. Recurrent pleural effusion requiring thoracentesis on 05/11/2020, 05/17/2020 , 05/23/20 Allergies Allergy/AdvReac Type Severity Reaction Status Date / Time lisinopril AdvReac Intermediate Cough Verified 12/11/20 17:48 Home Medications Medication Instructions Recorded Confirmed Type metformin 500 mg tablet 500 mg PO BIDM 02/15/19 12/11/20 History amlodipine 5 mg tablet 10 mg PO DAILY 04/14/20 12/11/20 History potassium chloride 20 mEq 20 meq PO DAILY 05/23/20 12/11/20 History tablet,extended release furosemide 40 mg tablet 40 mg PO UD #0 tab 05/26/20 12/11/20 Rx metoprolol tartrate 50 mg tablet 150 mg PO BID #180 tab 05/26/20 12/11/20 Rx omeprazole magnesium 20 mg 20 mg PO DAILY #30 tab 05/26/20 12/11/20 Rx tablet,delayed release (Prilosec OTC) rosuvastatin 10 mg tablet (Crestor) 10 mg PO QAM #30 tab 05/26/20 12/11/20 Rx spironolactone 25 mg tablet 12.5 mg PO DAILY #30 tab 05/26/20 12/11/20 Rx empagliflozin 10 mg tablet 10 mg PO DAILY 12/11/20 12/11/20 History (Jardiance) Patient History Medical History (Updated 12/12/20 @ 09:22 by uGstabo Goff DO) Ascending aortic dissection HTN (hypertension) Pneumonia due to COVID-19 virus Postcardiotomy syndrome Type 2 diabetes mellitus Surgical History History of appendectomy History of History of hysterectomy History of tonsillectomy Hx of sinus surgery S/P aortic dissection repair emergent surgical repair by Dr. Magana with replacement of the ascending aorta and hemiarch with a 20mm Gelwave graft. -03/2020 Family History Brother , 35 Sudden cardiac Sister , 65 Sudden cardiac Mother Sudden cardiac , Onset Age: 83 Social History Smoking Status: Never smoker Second Hand Exposure: No; Do You Dip or Chew Tobacco: No; Hx Alcohol Use: No Hx Substance Use: No Preferred Language: [place] Communication Ability: Effective Interactive Project Manager Required: No Beliefs That Will Affect Care: Anabaptism marital status: Current Living Situation: Spouse current occupation: Retired Other Information That Helps Us Care for You: No Feels Safe at Home: Yes Safety Concerns: Feels Safe At This Time Assistive Devices: None Results & Data ([place]) Vital Signs (Past 12 Hours) Vital Signs Temp Pulse Pulse Resp BP Pulse Ox 12/12/20 08:05 37.0 C 72 16 110/72 96 12/12/20 01:46 36.9 C 68 14 121/83 97 12/11/20 22:30 90 137/85 12/11/20 21:20 36.7 C 88 18 159/91 H 99
[2020-12-12] MEDS: SPIRONOLACTONE 12.5 MG TAB PO SCH (09:00)
[2020-12-12] MEDS: PANTOprazole 40 MG TAB PO SCH (09:01)
[2020-12-12] MEDS: amLODIPine BESYLATE 5 MG TAB PO SCH (09:01)
[2020-12-12] MEDS: METOPROLOL TARTRATE 50 MG TAB PO SCH ×2 (09:01→21:24)
[2020-12-12] MEDS: ROSUVASTATIN CALCIUM 10 MG TAB PO SCH (09:01)
--- NOTE | 2020-12-12 10:33 | Pharmacy Report ---
Pharmacy Glycemic Short Note 2 - Date of Service December 12, 2020 - Glycemic Short BSG Results (Last 24 hours): 12/11/20 12/11/20 12/12/20 16:24 21:16 01:47 Glucose 170 H POC Glucose 181 H 174 H 12/12/20 12/12/20 05:55 06:37 Glucose 142 H POC Glucose 137 H OUTPATIENT ANTIDIABETIC REGIMEN: * Jardiance 10 mg PO daily * Metformin 500 mg PO BID ASSESSMENT: * Alma Rosa is a T2DM female admitted for mechanical fall and found to have tibia and fibula fracture. Orthopedics was consulted and recommended closed reduction, splinting and plan for OR. Patient is currently NPO. * Will hold oral agents in the setting of upcoming surgery and start SQ basal + bolus insulin: * Novolog per weight/stress 2 * Initiate basal insulin when additional BSG data is avail (fasting of 137 mg/dL this am) * Patient may require NPH if given elier-operatively steroids PLAN FOR INPATIENT GLYCEMIC CONTROL: * Hold outpatient oral diabetes medications * Basal insulin * on hold for now * Bolus insulin * NovoLog per scale ACHS or Q6hrs while NPO * Goal Range: Low 110 mg/dL - High 140 mg/dL * Correction Factor: 30 mg/dL/unit * Nutritional / Prandial insulin per carb ratio of 1 unit per 10 grams CHO consumed PLAN FOR DISCHARGE: * A1c = 8.5% * Recommend continuation of Jardiance and metformin on discharge. * Continue to titrate metformin dosing upwards as recommended. Dosage increases should be made in increments of 500 mg weekly, up to 2,000 mg/day PO, given in divided doses. Doses above 2000 mg/day may be better tolerated if divided and given 3 times per day with meals. Max: 2,550 mg/day PO, in divided doses
--- NOTE | 2020-12-12 10:51 | Orthopedic Consultation ---
Date of Consultation December 12, 2020 Assessment & Plan (1) Fracture of left tibia and fibula: Xrays reviewed by myself and Dr. Sears. Plan for ORIF Left distal tibia and fibular fx today. History of Present Illness Reason for Consultation: Left distal Tibia/Fibular fracture Attending Physician: You Villatoro MD History of Present Illness Patient is a 55-year-old female who states that yesterday she was crouching down to open her garage door. As she was lifting the garage door up she ended up losing her balance and falling and twisting onto her left leg. She had immediate pain in the leg and was unable to ambulate. She did not lose consciousness. She denies hitting her head. She states that she had her cell phone on her and called her who in turn called the ambulance. The ambulance arrived shortly thereafter. She was unable to ambulate secondary to the pain in her left lower extremity. She was brought to [facility] ED where she was seen by the staff. X-rays were taken and was found to have a distal comminuted tibia and fibular fracture on the left. Dr. eSars reviewed the films. Patient would need surgical intervention. She was placed in a posterior splint with medial and lateral buttress splinting. She was then admitted by [facility] service. We have been asked to take care of her tibia fracture. Currently the patient is sleeping but is easily awoken. She easily recounts her accident. Currently she has some mild pain in the left distal lower extremity. No new complaints at this time. Allergies Allergy/AdvReac Type Severity Reaction Status Date / Time lisinopril AdvReac Intermediate Cough Verified 12/11/20 17:48 Home Medications Medication Instructions Recorded Confirmed Type metformin 500 mg tablet 500 mg PO BIDM 02/15/19 12/11/20 History amlodipine 5 mg tablet 10 mg PO DAILY 04/14/20 12/11/20 History potassium chloride 20 mEq 20 meq PO DAILY 05/23/20 12/11/20 History tablet,extended release furosemide 40 mg tablet 40 mg PO UD #0 tab 05/26/20 12/11/20 Rx metoprolol tartrate 50 mg tablet 150 mg PO BID #180 tab 05/26/20 12/11/20 Rx omeprazole magnesium 20 mg 20 mg PO DAILY #30 tab 05/26/20 12/11/20 Rx tablet,delayed release (Prilosec OTC) rosuvastatin 10 mg tablet (Crestor) 10 mg PO QAM #30 tab 05/26/20 12/11/20 Rx spironolactone 25 mg tablet 12.5 mg PO DAILY #30 tab 05/26/20 12/11/20 Rx empagliflozin 10 mg tablet 10 mg PO DAILY 12/11/20 12/11/20 History (Jardiance) Patient History Medical History (Updated 12/12/20 @ 15:26 by Adolfo Jackson PA-C) Ascending aortic dissection Fractured tibia and fibula HTN (hypertension) Pleural effusion, bilateral Pneumonia due to COVID-19 virus Postcardiotomy syndrome Type 2 diabetes mellitus Surgical History History of appendectomy History of History of hysterectomy History of tonsillectomy Hx of sinus surgery S/P aortic dissection repair emergent surgical repair by Dr. Magana with replacement of the ascending aorta and hemiarch with a 20mm Gelwave graft. 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 She is alert and oriented x3. No acute distress. Pleasant and cooperative. Examination of her left lower extremity, she has a splint on the leg at this time that goes up to the knee. Her toes are pink and warm. Capillary refill is less than 2 seconds. Sensation is intact. She is able to move her toes well. She has a fairly large splint on with padding and makes examining anterior compartments difficult however she does not appear to be having any increased pain on palpation. No pain in the left knee at this time. Range of motion of the knee is limited at this time secondary to her fracture and movement causing increased pain. Denies left hip pain at this time. Right lower extremity is unaffected and is nontender on palpation. Upper extremities are unaffected and she is nontender at the shoulders, elbows, and wrist. There is no gross motor or sensory loss seen at this time. Results & Data ([facility]) Vital Signs (Past 12 Hours) Vital Signs Temp Pulse Resp BP Pulse Ox 12/12/20 08:05 37.0 C 72 16 110/72 96 12/12/20 01:46 36.9 C 68 14 121/83 97 Laboratory Results Laboratory Results WBC 5.58 K/uL (4.8-10.8) 12/12/20 06:37 RBC 4.35 M/uL (4.2-5.4) 12/12/20 06:37 Hgb 12.6 g/dL (12.0-16.0) 12/12/20 06:37 Hct 38.5 % (37-47) 12/12/20 06:37 MCV 88.5 fL (80-100) 12/12/20 06:37 MCH 29.0 pg (25-34) 12/12/20 06:37 MCHC 32.7 g/dL (32-36) 12/12/20 06:37 RDW Std Deviation 43.1 fL (36.4-46.3) 12/12/20 06:37 RDW Coeff of Elaina 13.2 % (11.5-14.5) 12/12/20 06:37 Plt Count 292 K/uL (130-400) 12/12/20 06:37 MPV 10.1 fL (7.4-10.4) 12/12/20 06:37 Immature Gran % (Auto) 0.2 % 12/12/20 06:37 Neut % (Auto) 60.2 % 12/12/20 06:37 Lymph % (Auto) 30.8 % 12/12/20 06:37 Woods % (Auto) 7.5 % 12/12/20 06:37 Eos % (Auto) 0.9 % 12/12/20 06:37 Baso % (Auto) 0.4 % 12/12/20 06:37 Neut # (Auto) 3.36 K/uL (1.4-6.5) 12/12/20 06:37 Lymph # (Auto) 1.72 K/uL (1.2-3.4) 12/12/20 06:37 Woods # (Auto) 0.42 K/uL (0.11-0.59) 12/12/20 06:37 Eos # (Auto) 0.05 K/uL (0-0.5) 12/12/20 06:37 Baso # (Auto) 0.02 K/uL (0-0.2) 12/12/20 06:37 Immature Gran # (Auto) 0.01 K/uL (0.00-0.02) 12/12/20 06:37 PT 10.3 Seconds (9.0-12.0) 12/12/20 06:37 INR 1.0 (0.9-1.1) 12/12/20 06:37 APTT 26.0 Seconds (21.0-31.0) 12/12/20 06:37 PTT Ratio 1.0 12/12/20 06:37 Sodium 137 mmol/L (136-145) 12/12/20 06:37 Potassium 3.9 mmol/L (3.5-5.1) 12/12/20 06:37 Chloride 105 mmol/L (98-107) 12/12/20 06:37 Carbon Dioxide 27 mmol/L (21-32) 12/12/20 06:37 Anion Gap 5.0 (3-11) 12/12/20 06:37 BUN 21 mg/dl (7-18) H 12/12/20 06:37 Creatinine 1.07 mg/dl (0.6-1.2) 12/12/20 06:37 Est Cr Clr Drug Dosing 55.9 ml/min 12/12/20 06:37 Est GFR ( Amer) 67.7 ml/min 12/12/20 06:37 Est GFR (Non-Af Amer) 58.4 ml/min 12/12/20 06:37 BUN/Creatinine Ratio 19.2 (10-20) 12/12/20 06:37 Glucose 142 mg/dl (70-99) H 12/12/20 06:37 POC Glucose 137 mg/dl (70-99) H 12/12/20 05:55 Estimat Average Glucose 197 mg/dl 12/12/20 06:37 Hemoglobin A1c 8.5 % (4.5-5.6) H 12/12/20 06:37 Calcium 9.2 mg/dl (8.5-10.1) 12/12/20 06:37 Magnesium 2.1 mg/dl (1.8-2.4) 12/12/20 06:37 Total Bilirubin 0.6 mg/dl (0.2-1) 12/12/20 06:37 AST 10 U/L (15-37) L 12/12/20 06:37 ALT 21 U/L (12-78) 12/12/20 06:37 Alkaline Phosphatase 69 U/L (45-117) 12/12/20 06:37 Total Protein 7.5 gm/dl (6.4-8.2) 12/12/20 06:37 Albumin 3.5 gm/dl (3.4-5.0) 12/12/20 06:37 Globulin 4.0 gm/dl (2.5-4.0) 12/12/20 06:37 Albumin/Globulin Ratio 0.9 (0.9-2) 12/12/20 06:37 Nasal Screen MRSA (PCR) Negative (Negative) 12/11/20 21:30 COVID-19 Eval Order Covid19 at [facility] 12/11/20 16:09 SARS-CoV-2 (PCR) NEGATIVE (Negative) 12/11/20 16:09 Blood Type A Positive 12/11/20 16:25 Antibody Screen NEGATIVE 12/11/20 16:25 Impressions Diagnostic Findings Patient: SAHARA BLANK Date: 12/11/20MR#: [id number]: [address] [id number]: Date: 1965City Zip: [place], [place] [address]Bbu: 55Location: EDSex: FRoom/Bed:Att Phy:Diagnosis: LEFT LEG INJURYPri Phy: Gulshan Redman DOService Date: 12/11/20Fam Phy:Interpreting Phy: Randy OvallesAdmit Phy: Ordering Phy: Albert Perez M.D. cc: ~ XR tibia fibula LT 2V HISTORY: 55 years-old Female fracture acute trauma of the left lower leg COMPARISON: None TECHNIQUE: 2 views of the left tibia and fibula FINDINGS: Acute comminuted fracture of the mid to distal diaphyseal tibia demonstrating a few degrees of apex volar and lateral angulation with mild volar and lateral displacement of a few millimeters. Acute comminuted fracture of the distal fibular diaphysis demonstrates apex volar and lateral angulation with medial displacement of a few millimeters. Additionally, there is an acute fracture involving the distal aspect of the lateral malleolus. Ankle mortise appears intact. Soft tissue swelling of the lower leg and ankle. No opaque foreign body. IMPRESSION: 1. Acute, comminuted, angulated and mildly displaced fracture of the mid to distal tibial diaphysis. 2. Acute comminuted, angulated and displaced fracture of the distal fibula.
[2020-12-12] MEDS ORDERED: SODIUM CHLORIDE 0.9% 1000ML 1,000 ML IV SCH (11:15)
[2020-12-12] MEDS ORDERED: ROPIVACAINE 0.5% 5 MG/ML 30 ML VIAL ONE (14:04)
--- NOTE | 2020-12-12 14:04 | Anesthesiology Consultation ---
Date of Service December 12, 2020 Assessment & Plan (1) Encounter for pre-operative examination: Chart Review Chart Review: Acceptable Risk for Surgery and Patient NOT seen in Pre Admission Testing COVID neg 12/11/20 Cardiology note 12/11/20: Assessment & Plan (1) Preoperative cardiovascular examination: (2) S/P aortic dissection repair: Patient describes limitation with climbing stairs that per her description to me sounds like deconditioning rather than angina. Stable cardiac signs and symptoms noted am. BP is well controlled, and her EKG is unchanged compared to prior. Echocardiogram with stable findings. Recommend proceeding to the OR with an estimated low risk of perioperative cardiac complication. Continue home doses of amlodipine, metoprolol, Aldactone, rosuvastatin. Consults Requested none History Surgery Operation Date: 12/12/20 11:00 Proposed Procedures p Left Open Reduction Internal Fixation Serina - Richard Sears DO Height/Weight Height: 5 ft 2 in Weight: 73.8 kg Allergies Allergy/AdvReac Type Severity Reaction Status Date / Time lisinopril AdvReac Intermediate Cough Verified 12/11/20 17:48 Medications Home Medications Medication Instructions Recorded Confirmed Last Taken metformin 500 mg tablet 500 mg PO BIDM 02/15/19 12/11/20 12/11/20 08:00 amlodipine 5 mg tablet 10 mg PO DAILY 04/14/20 12/11/20 12/11/20 potassium chloride 20 mEq 20 meq PO DAILY 05/23/20 12/11/20 Unknown tablet,extended release furosemide 40 mg tablet 40 mg PO UD #0 tab 05/26/20 12/11/20 Unknown metoprolol tartrate 50 mg tablet 150 mg PO BID #180 tab 05/26/20 12/11/20 12/11/20 08:00 omeprazole magnesium 20 mg 20 mg PO DAILY #30 tab 05/26/20 12/11/20 Unknown tablet,delayed release (Prilosec OTC) rosuvastatin 10 mg tablet (Crestor) 10 mg PO QAM #30 tab 05/26/20 12/11/20 Unknown spironolactone 25 mg tablet 12.5 mg PO DAILY #30 tab 05/26/20 12/11/20 Unknown empagliflozin 10 mg tablet 10 mg PO DAILY 12/11/20 12/11/20 Unknown (Jardiance) Active Medications Generic Name Dose Route Start Last Admin Trade Name Freq PRN Reason Stop Dose Admin Amlodipine Besylate 10 mg 12/12/20 09:00 12/12/20 09:01 Amlodipine Besylate 5 Mg Tab PO 01/11/21 08:59 Not Given DAILY ZOHREH Promethazine HCl 12.5 mg/ 50.5 mls @ 202 mls/hr 12/11/20 23:00 12/11/20 23:26 Sodium Chloride IV 01/10/21 22:59 Infused Q6H PRN Infusion Nausea And Vomiting Sodium Chloride 1,000 mls @ 15 mls/hr 12/12/20 11:15 12/12/20 11:36 Nss 1000ml IV 01/11/21 11:14 15 mls/hr .Q24H ZOHREH Administration KVO Insulin Aspart 0 units 12/11/20 21:45 12/12/20 12:21 Insulin Aspart 100 Units/Ml 3 Ml Pen SC 01/10/21 21:44 Not Given Q6 [facility] Protocol Metoprolol Tartrate 150 mg 12/11/20 21:30 12/12/20 09:01 Metoprolol Tartrate 50 Mg Tab PO 01/10/21 21:29 Not Given BID ZOHREH Morphine Sulfate 4 mg 12/11/20 21:15 12/12/20 11:36 Morphine Sulfate 4 Mg/Ml 1 Ml Carp\Vial IV 12/25/20 21:14 4 mg Q3H PRN Administration Pain (6,7,8,9,10) Ondansetron HCl 4 mg 12/11/20 21:15 12/12/20 07:07 Ondansetron Inj 2 Mg/Ml 2 Ml Vial IV 01/10/21 21:14 4 mg Q6H PRN Administration Nausea Pantoprazole Sodium 40 mg 12/12/20 09:00 12/12/20 09:01 Pantoprazole 40 Mg Tab PO 01/11/21 08:59 Not Given DAILY [facility] Protocol Rosuvastatin Calcium 10 mg 12/12/20 09:00 12/12/20 09:01 Rosuvastatin Calcium 10 Mg Tab PO 01/11/21 08:59 Not Given QAM ZOHREH Senna/Docusate Sodium 2 tab 12/11/20 21:30 12/11/20 22:31 Docusate Sodium/Senna 50/8.6mg Tab PO 01/10/21 21:29 Not Given HS ZOHREH Spironolactone 12.5 mg 12/12/20 09:00 12/12/20 09:00 Spironolactone 12.5 Mg Tab PO 01/11/21 08:59 Not Given DAILY ZOHREH NPO Date Last Intake of Fluids: 12/11/20 Time Last Intake of Fluids: 21:30 Last Intake of Fluids Comment: small sips Date Last Intake of Solids: 12/11/20 Time Last Intake of Solids: 09:00 Past Medical History Medical History (Updated 12/12/20 @ 14:03 by Dangelo Magaña MD) Ascending aortic dissection Fractured tibia and fibula HTN (hypertension) Pleural effusion, bilateral Pneumonia due to COVID-19 virus Postcardiotomy syndrome Type 2 diabetes mellitus Past Family History Family History Brother , 35 Sudden cardiac Sister , 65 Sudden cardiac Mother Sudden cardiac , Onset Age: 83 Past Surgical History Surgical History History of appendectomy History of History of hysterectomy History of tonsillectomy Hx of sinus surgery S/P aortic dissection repair emergent surgical repair by Dr. Magana with replacement of the ascending aorta and hemiarch with a 20mm Gelwave graft. -03/2020 Social History Smoking Status: Never smoker Do You Dip or Chew Tobacco: No Hx Alcohol Use: No Hx Substance Use: No substance use type: does not use Physical Exam Vital Signs Last Vital Signs Temp 37.1 C 12/12/20 14:47 Pulse 76 12/12/20 14:47 Resp 20 12/12/20 14:47 BP 158/90 H 12/12/20 14:47 Pulse Ox 97 12/12/20 14:47 Testing Laboratory Results 12/12/20 06:37 12/12/20 06:37 PT 10.3 Seconds (9.0-12.0) 12/12/20 06:37 INR 1.0 (0.9-1.1) 12/12/20 06:37 APTT 26.0 Seconds (21.0-31.0) 12/12/20 06:37 Hemoglobin A1c 8.5 % (4.5-5.6) H 12/12/20 06:37 Blood Type A Positive 12/11/20 16:25 Antibody Screen NEGATIVE 12/11/20 16:25 12/12/20 12/12/20 12:10 05:55 POC Glucose 136 H 137 H Electrocardiogram Date: 12/11/20 HR 91. Normal sinus rhythm Possible Left atrial enlargement Left ventricular hypertrophy Inferior infarct (cited on or before 23-MAY-2020) Abnormal ECG When compared with ECG of 23-MAY-2020 13:33, No significant change was found Chest X-Ray Date: 12/11/20 XR chest 1V portable HISTORY: 55 years-old Female pre op preoperative exam. No acute chest complaints COMPARISON: Chest radiograph 05/24/2020 TECHNIQUE: Portable AP view of the chest FINDINGS: Cardiac silhouette is enlarged. Prior median sternotomy. Calcified plaque of the thoracic aorta. No pneumothorax, pleural effusion, airspace consolidation or overt pulmonary edema. No acute fracture. IMPRESSION: No acute process. Echocardiogram Date: 12/12/20 Mild LVH No RWMA EF 55-60% AV is trileaflet is absent No AR Mild aortic root dilatation Surgical repair and replacement of the ascending aorta appears intact.
[2020-12-12] MEDS ORDERED: DEXAMETHASONE SOD INJ 4 MG/ML VIAL ONE (14:42)
[2020-12-12] MEDS ORDERED: PROPOFOL IV EMULSION 10 MG/ML 20 ML VIAL IV ONE (14:42)
[2020-12-12] MEDS ORDERED: ONDANSETRON INJ 2 MG/ML 2 ML VIAL ONE ×2 (14:42→16:24)
[2020-12-12] MEDS ORDERED: LIDOCAINE 2% 2 ML VIAL/AMP(20MG/ML) INFIL ONE (14:42)
[2020-12-12] MEDS ORDERED: fentaNYL citrate 100 MCG/2 ML VIAL ONE ×2 (14:43→17:35)
[2020-12-12] MEDS ORDERED: MIDAZOLAM HCL 1 MG/ML 2ML VIAL ONE (14:43)
[2020-12-12] MEDS ORDERED: SCOPOLAMINE 1 MG TDSY TD ONE (14:53)
--- NOTE | 2020-12-12 15:25 | History & Physical Bridge Note ---
Date of Service December 12, 2020 History & Physical Bridge Note I have examined the patient, reviewed the History & Physical and in the interval since the performance of the History & Physical I have noted the following changes of clinical significance: We will require open reduction internal fixation left tibia and fibula.
[2020-12-12] MEDS ORDERED: EPINEPHrine INJ 1 MG/ML AMP ONE (15:35)
[2020-12-12] MEDS ORDERED: BUPIVACAINE 0.5 % 5 MG/1 ML MPF 30ML VIAL ONE (15:35)
[2020-12-12] MEDS ORDERED: ePHEDrine sulfate 50 MG/ML SYR ONE (16:24)
--- NOTE | 2020-12-12 18:15 | Post Operative Brief Note ---
Immediate Post Op Note v1 Date of Surgery December 12, 2020 Pre & Post Diagnosis Operation Date: 12/12/20 11:00 Pre-Op Diagnosis: Left comminuted, anglulated, displaced Tibia/Fibula Fracture Post-Op Diagnosis: Left comminuted, anglulated, displaced Tibia/Fibula Fracture I identified the patient and participated in the time-out.: Yes Procedure Operation Date: 12/12/20 11:00 Actual Procedures p Left Open Reduction Internal Fixation Tibia/Fibula Fracture with Synthes minimally invasive tibial plating system and locking fibular plate. (Left) - Richard Sears DO Surgeon Richard Sears DO Sign Wirer Adolfo Jackson PA-C Estimated Blood Loss 25 Findings Consistent with Post-Op Diagnosis Anesthesia Type General Regional Complications none Disposition Accompanied Patient To Recovery: No
--- NOTE | 2020-12-12 18:52 | Fluoroscopy Report ---
INTRAOPERATIVE RADIOGRAPHS CLINICAL HISTORY: Open reduction and internal fixation of the left tibia and fibula. Fluoroscopy time: 2 minutes 19 seconds. FINDINGS: 3 spot fluoroscopic views of the left tibia and fibula are compared to radiographs dated . There has been buttress plate fixation of comminuted fractures of the distal tibia and fibul a. Numerous cortical lag screws transfix the buttress plates. Near-anatomic alignment has been mainta ined. The orthopedic hardware appears intact. Overlying soft tissue edema is noted. IMPRESSION: Intraoperative images from open reduction and internal fixation of distal tibial and fibu lar fractures as above. Electronically signed by: Nayan Graham M.D. 12/12/2020 6:51 PM
--- NOTE | 2020-12-12 19:01 | Anesthesiology Progress Note ---
Date of Service December 12, 2020 Anesthesia Post Procedure Vital Signs Vital Signs: Temp Pulse Pulse Pulse Pulse Resp BP 12/12/20 18:55 88 12 12/12/20 18:45 85 10 L 12/12/20 18:35 87 19 12/12/20 18:29 36.3 C L 88 14 12/12/20 14:47 37.1 C 76 20 12/12/20 14:39 36.8 C 72 16 12/12/20 08:05 37.0 C 72 16 12/12/20 01:46 36.9 C 68 14 12/11/20 22:30 90 12/11/20 21:20 36.7 C 88 18 12/11/20 20:00 88 12 132/78 12/11/20 19:30 90 14 135/82 BP Pulse Ox 12/12/20 18:55 120/72 98 12/12/20 18:45 137/82 99 12/12/20 18:35 135/86 100 12/12/20 18:29 122/80 98 12/12/20 14:47 158/90 H 97 12/12/20 14:39 118/75 95 12/12/20 08:05 110/72 96 12/12/20 01:46 121/83 97 12/11/20 22:30 137/85 12/11/20 21:20 159/91 H 99 12/11/20 20:00 95 12/11/20 19:30 93 Pain Intensity Left Leg: Pain Intensity: 8 Transfer of Care Handoff Completed per policy Notes Mental Status: alert / awake / arousable and participated in evaluation Patient Amnestic to Procedure: Yes Nausea / Vomiting: adequately controlled Pain: adequately controlled Airway Patency, RR, SpO2: stable & adequate BP & HR: stable & adequate Hydration State: stable & adequate Anesthetic Complications: no major complications apparent and Pt Satisfied with anesthetic care
[2020-12-12] MEDS ORDERED: NALOXONE HCL 0.4 MG/1 ML VIAL/CARP IV PRN (19:36)
[2020-12-12] MEDS: SODIUM CHLORIDE 0.9% 1000ML 1,000 ML IV SCH (19:59)
--- NOTE | 2020-12-12 20:21 | XRay Report ---
LEFT TIBIA AND FIBULA 2 VIEWS CLINICAL HISTORY: Postoperative examination. FINDINGS: AP and crosstable lateral views of the left tibia and fibula are compared to study dated . The examination is performed through a splint, obscuring fine bony detail. The skeletal stru ctures are more mineralized. There has been buttress plate fixation of comminuted fractures of the di stal tibial and fibular shafts with latter-day of near-anatomic alignment. Numerous cortical lag scr ews transfix the buttress plates. Additional cortical lag screw transfix the fracture fragments. The orthopedic hardware appears intact. Skin clips, soft tissue swelling, and subcutaneous gas overlying the operative site are expected postoperative changes. The proximal tibia and fibula appear intact. T he knee and ankle joints are grossly maintained. IMPRESSION: Expected postoperative findings status post open reduction and internal fixation of dista l tibial and fibular fractures as above. Electronically signed by: Nayan Graham M.D. 12/12/2020 8:20 PM
[2020-12-12] MEDS: DOCUSATE SODIUM 100 MG CAP PO SCH (21:24)
[2020-12-12] MEDS: ASPIRIN 81 MG ECTAB PO SCH (21:24)
[2020-12-12] MEDS: DOCUSATE SODIUM/SENNA 50/8.6MG TAB PO SCH (21:25)
--- NOTE | 2020-12-12 22:30 | Operative Report (OR) ---
DATE OF PROCEDURE: 12/12/2020. PREOPERATIVE DIAGNOSES: Left displaced comminuted angulated tibial and fibular shaft fractures. POSTOPERATIVE DIAGNOSES: Left displaced comminuted angulated tibial and fibular shaft fractures. PROCEDURE: Open reduction and internal fixation of left displaced comminuted angulated tibia and fib ular fractures, distal one-third shaft with Synthes minimally invasive surgical system plate and a fi bular locking plate. SURGEON: Richard Sears DO SUPERVISOR PERSONNEL CLERKS: Adolfo Jackson PA-C, who was present for patient positioning, sterile prep and drape, management of retractors and instruments. He was present through the critical portions of the case i ncluding wound closure, application of sterile dressing and transport of the patient to recovery. ANESTHESIA: General, regional. SPECIMENS: None. DRAINS: None. COMPLICATIONS: None. BLOOD LOSS: 25 mL. PERTINENT HISTORY: This is a 55-year-old female who was at home. She had a twisting fall with immed iate severe pain and deformity of her left lower extremity. Unable to ambulate as the limb was defor med and painful. She was transferred to [facility] where she was evaluated with ra diographs, noting a displaced comminuted angulated fracture of the shaft distal one-third of the tibi a and the shaft of the distal one-third of the fibula. The patient has multiple medical comorbiditie s, was admitted to the hospitalist service with orthopedics to consult and provide definitive managem ent. Once the patient was stabilized and cleared for surgery, she was then scheduled for surgery as indicated. All potential risks, benefits, complications, alternatives, rehab potential for incomplete relief of symptoms, need for further surgery, DVT, PE, , persistent pain, swelling, scarring, weakness, ne urovascular injury, wound complications, hardware failure, nonunion, malunion, and bone fracture were discussed with the patient. The patient decided to proceed with the procedure as indicated. DESCRIPTION OF PROCEDURE: After receiving preoperative regional anesthesia performed by the anesthes iologist, the patient was taken to the operative suite and placed supine on the operating room table. After review of consent and identification of proper operative site, the patient was anesthetized, LMA was placed. Tourniquet was placed high on the left thigh over cast padding. Left lower extremit y was sterilely prepped and draped in the usual sterile fashion, elevated and exsanguinated with an E smarch bandage and tourniquet inflated to 300 mmHg. Next, after surgical timeout was performed, a #15 blade scalpel was used to make an incision over the distal one-third of the fibula. The incision was deepened through skin and subcutaneous tissue with a 15 blade scalpel. Careful meticulous hemostasis was achieved with electrocautery and then scissor dissection was performed down to the level of the periosteum and the deep peroneal nerve. The deep peroneal nerve was then retracted and protected with a Victoria rake and the peroneal tendons were retrac bea posteriorly. Fascia and periosteum was incised over the fracture site carefully elevated just at the fracture site as necessary. The dental pick and saline irrigation was used to irrigate and debr shayy the fracture site to gain visualization and remove any immature clot. Next, using manual tractio n, manipulation and provisional fixation with multiple bone clamps, the comminuted, angulated and dis placed fibular fracture was then stabilized in a near anatomic position followed by the use of an 8-h ole one-third tubular Synthes locking plate, which was then precontoured with bending irons and then applied to the lateral aspect of the fibula. This was prefaced with a single anterior to posterior 3 .5 mm fully threaded cortical lag screw to provide direct compression through some of the fracture fr agments. This was performed under live fluoroscopic assistance to confirm near anatomic alignment an d stable fixation. Next, attention was directed toward the tibia and a 15 blade scalpel was then use d to make an incision along the medial aspect of the distal medial malleolus. The incision was then deepened through skin and subcutaneous tissue with a 15 blade scalpel. Careful meticulous hemostasis was achieved with electrocautery. Care was taken to perform both sharp and blunt scissor dissection to visualize the branch of the saphenous vein. It was then retracted and protected with a House ret ractor. Dissection was then performed down to the level of the periosteum, which was left intact int entionally and then a Love elevator was then used to pass along the periosteum proximal to the medial malleolus to make a small trough, at which point the 12-hole periarticular medial locking Synthes mi nimally invasive plate was then passed using the guidance arm under live fluoroscopic assistance to d etermine appropriate level. Manual reduction, traction and manipulation was then performed to stabil ize the fracture with traction held in place. A single anterior to posterior 3.5 mm freehand lag scr ew was placed at the distal one-third of the tibia to stabilize the splinter fracture, which extended from proximal to distal just above the level of the tibial plafond. This stabilized and reduced in anatomic position. This was then followed by manipulation of the remaining fracture fragments in a n ear anatomic alignment followed by provisional fixation distally of the plate with a single 4.0 cance llous screw placed under live fluoroscopic assistance and stabilization of the plate proximally with a single provisional pin. Next under live fluoroscopic assistance using a combination of open and pe rcutaneous minimally invasive technique, multiple nonlocking and locking screws were applied to achie ve stable anatomic reduction and fixation. Next, the guide pin proximally was then removed replaced by a locking screw. All screws were then tightened by hand to achieve stable solid fixation and the target alignment arm was then removed followed by final radiographs, AP and lateral projections, noti ng anatomic reduction and fixation of both the tibia and the fibula with two locking plates and multi ple locking and nonlocking screws. The stab incisions and medial and lateral open incisions were the n copiously irrigated with sterile saline until clear, followed by closure of the fascia over the med ial plate with interrupted 2-0 Vicryl. Fascia laterally was closed over the plate with interrupted 2 -0 Vicryl. The dermis was closed using buried interrupted 3-0 Vicryl sutures and then the stab percut aneous incisions made for placement of the locking screws were closed using a combination of buried i nterrupted 3-0 Vicryl on the dermis and multiple skin bill. After skin closure was completed, a s terile compressive dressing was applied, overwrapped with a bulky Lizandro Stein plaster splint placed in neutral alignment. The tourniquet was released. Normal hyperemic response returned to the toes. The patient was then awakened and then taken to recovery in stable condition. Job ID: [id number]
[2020-12-12] MEDS: ceFAZolin 1000MG 1,000 MG/7.5 ML SYR IV SCH (22:34)
--- NOTE | 2020-12-13 05:10 | Electrocardiogram Report ---
Test Reason : Blood Pressure : / mmHG Vent. Rate : 091 BPM Atrial Rate : 091 BPM P-R Int : 174 ms QRS Dur : 076 ms QT Int : 372 ms P-R-T Axes : 054 -16 079 degrees QTc Int : 457 ms Normal sinus rhythm Possible Left atrial enlargement Left ventricular hypertrophy Inferior infarct (cited on or before 23-MAY-2020) Abnormal ECG When compared with ECG of 23-MAY-2020 13:33, No significant change was found Confirmed by Cristian Elizabeth ([id number]) on 12/13/2020 5:10:11 AM Referred By: REFERRED SELF Confirmed By:Cristian Elizabeth
[2020-12-13] MEDS: SODIUM CHLORIDE 0.9% 1000ML 1,000 ML IV SCH (06:01)
[2020-12-13] MEDS: ceFAZolin 1000MG 1,000 MG/7.5 ML SYR IV SCH (06:26)
[2020-12-13 06:49] LABS: Hematocrit (blood only) 31.9 % (37-47); Hemoglobin 10.4 g/dL (12.0-16.0); Mean Corpuscular Hemoglobin 28.5 pg (25-34); Mean Corpuscular Hgb Conc 32.6 g/dL (32-36); Mean Corpuscular Volume 87.4 fL (80-100); Mean Platelet Volume 9.4 fL (7.4-10.4); Platelet Count 212 K/uL (130-400); RDW Coefficient of Variation 13.3 % (11.5-14.5); Red Blood Count 3.65 M/uL (4.2-5.4); White Blood Count 5.95 K/uL (4.8-10.8)
--- NOTE | 2020-12-13 07:12 | Hospitalist Progress Note ---
Date of Service December 13, 2020 Assessment & Plan (1) Fractured tibia and fibula: Plan: This is a 55-year-old female who has a past medical history of type a aortic dissection status post repair complicated by postoperative A. 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 Xray: IMPRESSION: 1. Acute, comminuted, angulated and mildly displaced fracture of the mid to distal tibial diaphysis. 2. Acute comminuted, angulated and displaced fracture of the distal fibula. Orthopedics consulted - s/p ORIF Tibia/Fibula Fracture with Synthes minimally invasive tibial plating system and locking fibular plate. (Left) 12/12 obtained ecg/cxr for cardiac clearance Tdap administered in ED Discussed case with Dr. Goff who follows pt in cardiology clinic - saw patient for preop evaluation Echo - Mild concentric LVH. No regional wall motion abnormality noted. LVEF 55 to 60%. Aortic valve is trileaflet. Aortic stenosis is absent. There is no significant aortic regurg. Mild aortic root dilatation is present with surgical repair and replacement of the ascending aorta appears intact. Compared to prior study in May 2020, there is no significant interval change. PT/OT. NWB LLE DVT prophylaxis - ASA bid Pain management as written. 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 Goff Continue home medications for blood pressure, amlodipine, metoprolol, spironol actone Prescribed regimen of lasix, will hold lasix for now (4) Type 2 diabetes mellitus: Plan: last a1c 8.4 on 12/07 hold metformin and Jardiance (pt takes sparingly) lantus/novolog per protocol consult glycemic pharmacy (5) HTN (hypertension): Plan: BP well controlled continue home meds - as above monitor closely (6) DVT prophylaxis: Plan: SCDs, ASA BID (per ortho) Dispo: med/surg PCP: Юлия Full Code Admission and Anticipated Discharge Date Admission Date: December 11, 2020 Subjective Patient seen in follow-up of tibial, fibular fracture Pt is sitting up in chair , not in distress s/p ORIF for tibial/fibular fracture yesterday Currently denies any chest pain, shortness of breath, palpitations, dizziness Reports some numbness and tingling in her toes of her left lower extremity, seems resolving Review of Systems Review of Systems: All systems reviewed & are unremarkable except as noted in Subjective Physical Exam 2 Physical Exam: Constitutional: WD/WN, F,lying in bed, in NAD Head: Normocephalic, Atraumatic Eyes: PERRL, EOMI, conjunctivae normal, anicteric sclerae ENMT: external ear and nose normal, oropharynx normal Neck: normal visual inspection Respiratory: normal respiratory effort, lungs clear to auscultation, no wheeze, rales, rhonchi. Normal insp/exp effort, no accessory muscle use Cardiovascular: RRR, no murmur, no edema Vessels: no JVD or carotid bruit Chest: sternal scar noted, normal inspection of chest Abdomen: normal bowel sounds, soft, nontender Musculoskeletal: LLE in splint/surgical dressings, toes on left lower extremity warm, well-perfused, patient is able to move toes Skin: no rashes, warm and dry normal turgor Neurologic: PERRL, EOMI, no face palsy, no dysarthria, moves all extremities Psychiatric: A+Ox3, euthymic affect Results & Data Results & Data ([facility]) Vital Signs (Past 12 Hours) Vital Signs Temp Pulse Resp BP Pulse Ox 12/13/20 04:42 36.8 C 82 18 118/76 96 12/12/20 22:57 37.1 C 75 18 115/74 93 12/12/20 21:39 36.6 C 88 18 152/83 H 96 12/12/20 21:24 80 138/78 12/12/20 20:30 36.7 C 85 18 164/84 H 97 12/12/20 20:00 37.1 C 86 18 155/80 H 96 12/12/20 19:34 37.4 C 88 18 131/78 96 12/12/20 19:20 83 15 132/80 95 Laboratory Results 12/13/20 12/13/20 12/13/20 Range/Units 12:28 08:39 06:38 WBC (4.8-10.8) K/uL RBC (4.2-5.4) M/uL Hgb (12.0-16.0) g/dL Hct (37-47) % MCV (80-100) fL MCH (25-34) pg MCHC (32-36) g/dL RDW Std Deviation (36.4-46.3) fL RDW Coeff of Elaina (11.5-14.5) % Plt Count (130-400) K/uL MPV (7.4-10.4) fL Sodium 140 (136-145) mmol/L Potassium 3.8 (3.5-5.1) mmol/L Chloride 109 H (98-107) mmol/L Carbon Dioxide 24 (21-32) mmol/L Anion Gap 6.0 (3-11) BUN 13 (7-18) mg/dl Creatinine 0.90 (0.6-1.2) mg/dl Est Cr Clr Drug Dosing 66.4 ml/min Est GFR ( Amer) 83.4 ml/min Est GFR (Non-Af Amer) 72.0 ml/min BUN/Creatinine Ratio 14.0 (10-20) Glucose 127 H (70-99) mg/dl POC Glucose 107 H 129 H (70-99) mg/dl Calcium 8.4 L (8.5-10.1) mg/dl Phosphorus 2.6 (2.5-4.9) mg/dl Magnesium 1.6 L (1.8-2.4) mg/dl 12/13/20 12/12/20 12/12/20 Range/Units 06:38 20:49 18:40 WBC 5.95 (4.8-10.8) K/uL RBC 3.65 L (4.2-5.4) M/uL Hgb 10.4 L (12.0-16.0) g/dL Hct 31.9 L (37-47) % MCV 87.4 (80-100) fL MCH 28.5 (25-34) pg MCHC 32.6 (32-36) g/dL RDW Std Deviation 43.0 (36.4-46.3) fL RDW Coeff of Elaina 13.3 (11.5-14.5) % Plt Count 212 (130-400) K/uL MPV 9.4 (7.4-10.4) fL Sodium (136-145) mmol/L Potassium (3.5-5.1) mmol/L Chloride (98-107) mmol/L Carbon Dioxide (21-32) mmol/L Anion Gap (3-11) BUN (7-18) mg/dl Creatinine (0.6-1.2) mg/dl Est Cr Clr Drug Dosing ml/min Est GFR ( Amer) ml/min Est GFR (Non-Af Amer) ml/min BUN/Creatinine Ratio (10-20) Glucose (70-99) mg/dl POC Glucose 158 H 144 H (70-99) mg/dl Calcium (8.5-10.1) mg/dl Phosphorus (2.5-4.9) mg/dl Magnesium (1.8-2.4) mg/dl Medications Administered Current Inpatient Medications Acetaminophen (Acetaminophen 325 Mg Tab) 650 mg PO Q4H PRN PRN Reason: pain/fever Stop: 01/10/21 21:14 Al Hydrox/Mg Hydrox/Simethicone (Aluminum/Magnesium Susp 30 Ml Udc) 30 ml PO Q6H PRN PRN Reason: Dyspepsia Stop: 01/10/21 21:14 Amlodipine Besylate (Amlodipine Besylate 5 Mg Tab) 10 mg PO DAILY ZOHREH Stop: 01/11/21 08:59 Last Admin: 12/12/20 09:01 Dose: Not Given Documented by: Aspirin (Aspirin 81 Mg Ectab) 81 mg PO BID ZOHREH Stop: 01/11/21 20:59 Last Admin: 12/12/20 21:24 Dose: 81 mg Documented by: Bisacodyl (Bisacodyl 10 Mg Supp) 10 mg OH DAILY PRN PRN Reason: Constipation Stop: 01/10/21 21:14 Dextrose (Dextrose 50% 50 Ml Syringe) 25 - 50 ml IV UD PRN; Protocol PRN Reason: Hypoglycemia Protocol Stop: 01/10/21 21:14 Docusate Sodium (Docusate Sodium 100 Mg Cap) 100 mg PO BID [facility] Stop: 01/11/21 20:59 Last Admin: 12/12/20 21:24 Dose: 100 mg Documented by: Glucagon (Glucagon For Inj 1 Mg Vial) 1 mg SQ UD PRN; Protocol PRN Reason: Hypoglycemia Protocol Stop: 01/10/21 21:14 Glucose (Glucose 10 Tabs/Tube) 4 - 8 tabs PO UD PRN; Protocol PRN Reason: Hypoglycemia Protocol Stop: 01/10/21 21:14 Glucose (Glucose 40% Gel 15 Gm Tube) 15 - 30 gm PO UD PRN; Protocol PRN Reason: Hypoglycemia Protocol Stop: 01/10/21 21:14 Insulin Aspart (Insulin Aspart 100 Units/Ml 3 Ml Pen) 0 units SC ACHS ZOHREH; Protocol Stop: 01/11/21 22:29 Last Admin: 12/12/20 22:32 Dose: 3 units Documented by: Magnesium Hydroxide (Magnesium Hydroxide Susp 30 Ml Udc) 30 ml PO Q6H PRN PRN Reason: Constipation Stop: 01/10/21 21:14 Metoprolol Tartrate (Metoprolol Tartrate 50 Mg Tab) 150 mg PO BID [facility] Stop: 01/10/21 21:29 Last Admin: 12/12/20 21:24 Dose: 150 mg Documented by: Miscellaneous (Carbohydrates For Hypoglycemia ) 15 - 30 gm PO UD PRN PRN Reason: Hypoglycemia Protocol Stop: 01/10/21 21:14 Miscellaneous Information (Pharmacy Glycemic Mgmt Consult) 1 ea N/A UD PRN; Protocol PRN Reason: Consult Stop: 01/10/21 21:14 Morphine Sulfate (Morphine Sulfate 4 Mg/Ml 1 Ml Carp\Vial) 4 mg IV Q3H PRN PRN Reason: Pain (6,7,8,9,10) Stop: 12/25/20 21:14 Last Admin: 12/12/20 11:36 Dose: 4 mg Documented by: Multivitamins (Multivitamin Tab) 1 tab PO QAM [facility] Stop: 01/12/21 08:59 Naloxone HCl (Naloxone Hcl 0.4 Mg/1 Ml Vial/Carp) 0.1 mg IV UD PRN PRN Reason: Opiate Overdose Stop: 01/10/21 21:14 Naloxone HCl (Naloxone Hcl 0.4 Mg/1 Ml Vial/Carp) 0.1 mg IV Q5M PRN PRN Reason: Oversedation/Resp Depression Stop: 01/11/21 19:35 Ondansetron HCl (Ondansetron Inj 2 Mg/Ml 2 Ml Vial) 4 mg IV Q6H PRN PRN Reason: Nausea Stop: 01/10/21 21:14 Last Admin: 12/12/20 07:07 Dose: 4 mg Documented by: Oxycodone/Acetaminophen (Oxycodone/Acetaminophen 5mg/325mg Tab) 1 tab PO Q4H PRN PRN Reason: MODERATE Pain (4,5,6) & Pre PT Stop: 12/25/20 21:14 Oxycodone/Acetaminophen (Oxycodone/Acetaminophen 5mg/325mg Tab) 2 tab PO Q4H PRN PRN Reason: SEVERE Pain (7,8,9,10) Stop: 12/25/20 21:14 Pantoprazole Sodium (Pantoprazole 40 Mg Tab) 40 mg PO DAILY [facility]; Protocol Stop: 01/11/21 08:59 Last Admin: 12/12/20 09:01 Dose: Not Given Documented by: Polyethylene Glycol (Polyethylene (Miralax) 17 Gm Pack) 17 gm PO DAILY PRN PRN Reason: Constipation Stop: 01/10/21 21:14 Rosuvastatin Calcium (Rosuvastatin Calcium 10 Mg Tab) 10 mg PO QAM [facility] Stop: 01/11/21 08:59 Last Admin: 12/12/20 09:01 Dose: Not Given Documented by: Senna/Docusate Sodium (Docusate Sodium/Senna 50/8.6mg Tab) 2 tab PO HS ZOHREH Stop: 01/10/21 21:29 Last Admin: 12/12/20 21:25 Dose: 2 tab Documented by: Spironolactone (Spironolactone 12.5 Mg Tab) 12.5 mg PO DAILY [facility] Stop: 01/11/21 08:59 Last Admin: 12/12/20 09:00 Dose: Not Given Documented by: (1) Fractured tibia and fibula Encounter type: initial encounter Laterality: left
[2020-12-13 07:40] LABS: Calcium 8.4 mg/dl (8.5-10.1); Creatinine Clr Calc Pharmacy 66.4 ml/min; Est GFR (African American) 83.4 ml/min; Magnesium 1.6 mg/dl (1.8-2.4); Phosphorus 2.6 mg/dl (2.5-4.9); Potassium 3.8 mmol/L (3.5-5.1)
[2020-12-13] MEDS: SPIRONOLACTONE 12.5 MG TAB PO SCH (08:43)
[2020-12-13] MEDS: amLODIPine BESYLATE 5 MG TAB PO SCH (08:43)
[2020-12-13] MEDS: ROSUVASTATIN CALCIUM 10 MG TAB PO SCH (08:43)
[2020-12-13] MEDS: PANTOprazole 40 MG TAB PO SCH (08:43)
[2020-12-13] MEDS: ASPIRIN 81 MG ECTAB PO SCH ×2 (08:44→20:46)
[2020-12-13] MEDS: oxyCODONE/ACETAMINOPHEN 5mg/325mg TAB PO PRN ×4 (08:44→22:16)
[2020-12-13] MEDS: METOPROLOL TARTRATE 50 MG TAB PO SCH ×2 (08:44→20:46)
[2020-12-13] MEDS: MULTIVITAMIN TAB PO SCH (08:44)
[2020-12-13] MEDS: DOCUSATE SODIUM 100 MG CAP PO SCH ×2 (08:44→20:28)
--- NOTE | 2020-12-13 08:46 | Orthopedic Progress Note ---
Date of Service December 13, 2020 Assessment & Plan (1) Fracture of left tibia and fibula: Plan: POD 1 s/p Left Distal Tib/Fib fractures. PT/OT. NWB LLE DVT prophylaxis - ASA bid Pain management as written. DC planning - plan for dc to home when ambulating safely Admission and Anticipated Discharge Date Admission Date: December 11, 2020 Subjective POD 1 Pt sitting up eating breakfast. Having some pain in the LLE. Discussed expectations of pain during the initial phase of having surgery. No other complaints. Physical Exam Physical Exam: Dressings are C/D/I. Toes pink and warm. Cap refill < 2 seconds. States she has a slight tingling sensation in the toes which is slowly resolving. Results & Data ([facility]) Vital Signs (Past 12 Hours) Vital Signs Temp Pulse Resp BP Pulse Ox 12/13/20 08:22 37.3 C 86 16 124/74 95 12/13/20 04:42 36.8 C 82 18 118/76 96 12/12/20 22:57 37.1 C 75 18 115/74 93 12/12/20 21:39 36.6 C 88 18 152/83 H 96 12/12/20 21:24 80 138/78 Laboratory Results Laboratory Results WBC 5.95 K/uL (4.8-10.8) 12/13/20 06:38 RBC 3.65 M/uL (4.2-5.4) L 12/13/20 06:38 Hgb 10.4 g/dL (12.0-16.0) L 12/13/20 06:38 Hct 31.9 % (37-47) L 12/13/20 06:38 MCV 87.4 fL (80-100) 12/13/20 06:38 MCH 28.5 pg (25-34) 12/13/20 06:38 MCHC 32.6 g/dL (32-36) 12/13/20 06:38 RDW Std Deviation 43.0 fL (36.4-46.3) 12/13/20 06:38 RDW Coeff of Elaina 13.3 % (11.5-14.5) 12/13/20 06:38 Plt Count 212 K/uL (130-400) 12/13/20 06:38 MPV 9.4 fL (7.4-10.4) 12/13/20 06:38 Immature Gran % (Auto) 0.2 % 12/12/20 06:37 Neut % (Auto) 60.2 % 12/12/20 06:37 Lymph % (Auto) 30.8 % 12/12/20 06:37 [place] % (Auto) 7.5 % 12/12/20 06:37 Eos % (Auto) 0.9 % 12/12/20 06:37 Baso % (Auto) 0.4 % 12/12/20 06:37 Neut # (Auto) 3.36 K/uL (1.4-6.5) 12/12/20 06:37 Lymph # (Auto) 1.72 K/uL (1.2-3.4) 12/12/20 06:37 [place]man # (Auto) 0.42 K/uL (0.11-0.59) 12/12/20 06:37 Eos # (Auto) 0.05 K/uL (0-0.5) 12/12/20 06:37 Baso # (Auto) 0.02 K/uL (0-0.2) 12/12/20 06:37 Immature Gran # (Auto) 0.01 K/uL (0.00-0.02) 12/12/20 06:37 PT 10.3 Seconds (9.0-12.0) 12/12/20 06:37 INR 1.0 (0.9-1.1) 12/12/20 06:37 APTT 26.0 Seconds (21.0-31.0) 12/12/20 06:37 PTT Ratio 1.0 12/12/20 06:37 Sodium 140 mmol/L (136-145) 12/13/20 06:38 Potassium 3.8 mmol/L (3.5-5.1) 12/13/20 06:38 Chloride 109 mmol/L (98-107) H 12/13/20 06:38 Carbon Dioxide 24 mmol/L (21-32) 12/13/20 06:38 Anion Gap 6.0 (3-11) 12/13/20 06:38 BUN 13 mg/dl (7-18) 12/13/20 06:38 Creatinine 0.90 mg/dl (0.6-1.2) 12/13/20 06:38 Est Cr Clr Drug Dosing 66.4 ml/min 12/13/20 06:38 Est GFR ( Amer) 83.4 ml/min 12/13/20 06:38 Est GFR (Non-Af Amer) 72.0 ml/min 12/13/20 06:38 BUN/Creatinine Ratio 14.0 (10-20) 12/13/20 06:38 Glucose 127 mg/dl (70-99) H 12/13/20 06:38 POC Glucose 129 mg/dl (70-99) H 12/13/20 08:39 Estimat Average Glucose 197 mg/dl 12/12/20 06:37 Hemoglobin A1c 8.5 % (4.5-5.6) H 12/12/20 06:37 Calcium 8.4 mg/dl (8.5-10.1) L 12/13/20 06:38 Phosphorus 2.6 mg/dl (2.5-4.9) 12/13/20 06:38 Magnesium 1.6 mg/dl (1.8-2.4) L 12/13/20 06:38 Total Bilirubin 0.6 mg/dl (0.2-1) 12/12/20 06:37 AST 10 U/L (15-37) L 12/12/20 06:37 ALT 21 U/L (12-78) 12/12/20 06:37 Alkaline Phosphatase 69 U/L (45-117) 12/12/20 06:37 Total Protein 7.5 gm/dl (6.4-8.2) 12/12/20 06:37 Albumin 3.5 gm/dl (3.4-5.0) 12/12/20 06:37 Globulin 4.0 gm/dl (2.5-4.0) 12/12/20 06:37 Albumin/Globulin Ratio 0.9 (0.9-2) 12/12/20 06:37 Nasal Screen MRSA (PCR) Negative (Negative) 12/11/20 21:30 COVID-19 Eval Order Covid19 at [facility] 12/11/20 16:09 SARS-CoV-2 (PCR) NEGATIVE (Negative) 12/11/20 16:09 Blood Type A Positive 12/11/20 16:25 Antibody Screen NEGATIVE 12/11/20 16:25 Impressions Tibia/Fibula X-Ray 12/12/20 19:36 LEFT TIBIA AND FIBULA 2 VIEWS CLINICAL HISTORY: Postoperative examination. FINDINGS: AP and crosstable lateral views of the left tibia and fibula are compared to study dated 12/11/2020. The examination is performed through a splint, obscuring fine bony detail. The skeletal structures are more mineralized. There has been buttress plate fixation of comminuted fractures of the distal tibial and fibular shafts with religious of near-anatomic alignme nt. Numerous cortical lag screws transfix the buttress plates. Additional cortical lag screw transfix the fracture fragments. The orthopedic hardware appears intact. Skin clips, soft tissue swelling, and subcutaneous gas overlying the operative site are expected postoperative changes. The proximal tibia and fibula appear intact. The knee and ankle joints are grossly maintained. IMPRESSION: Expected postoperative findings status post open reduction and internal fixation of distal tibial and fibular fractures as above. Electronically signed by: Nayan Graham M.D. 12/12/2020 8:20 PM
[2020-12-13] MEDS: INSULIN ASPART 100 UNITS/ML 3 ML PEN SC SCH ×4 (08:49→20:52)
[2020-12-13] MEDS: MoRPHine SULFATE 4 MG/ML 1 ML CARP\\VIAL IV PRN (14:39)
--- NOTE | 2020-12-13 14:47 | Cardiology Progress Note ---
Date of Service December 13, 2020 Assessment & Plan (1) Fracture of left tibia and fibula: Plan: Tolerated surgery well. (2) S/P aortic dissection repair: Plan: BP well controlled. Continue home medications. Replace magnesium, orally. Admission and Anticipated Discharge Date Admission Date: December 11, 2020 Subjective Pt seen in cardiology follow up. No cardiac complaints. Review of Systems Review of Systems: All systems reviewed & are unremarkable except as noted in HPI & below Physical Exam Physical Exam: Temp Pulse Resp BP Pulse Ox 37.3 C 86 16 124/74 95 12/13/20 08:22 12/13/20 08:22 12/13/20 08:22 12/13/20 08:22 12/13/20 08:22 Respiratory: normal respiratory effort, lungs clear to auscultation Cardiovascular: RRR, no murmur, no edema Gastrointestinal (Abdomen): normal bowel sounds, soft, nontender, no hepatosplenomegaly Neurologic: PERRL, EOMI, accommodation nl, no face palsy, no dysarthria Results & Data ([facility]) Vital Signs (Past 12 Hours) Vital Signs Temp Pulse Resp BP Pulse Ox 12/13/20 08:22 37.3 C 86 16 124/74 95 12/13/20 04:42 36.8 C 82 18 118/76 96
[2020-12-13] MEDS ORDERED: MAGNESIUM OXIDE 400 MG TAB PO ONE (14:52)
--- NOTE | 2020-12-13 15:01 | Pharmacy Report ---
Pharmacy Glycemic Short Note 2 - Date of Service December 13, 2020 - Glycemic Short BSG Results (Last 24 hours): 12/12/20 12/12/20 12/13/20 18:40 20:49 06:38 Glucose 127 H POC Glucose 144 H 158 H 12/13/20 12/13/20 08:39 12:28 Glucose POC Glucose 129 H 107 H OUTPATIENT ANTIDIABETIC REGIMEN: * Jardiance 10 mg PO daily * Metformin 500 mg PO BID ASSESSMENT: 12/13: * Alma Rosa is POD #1 s/p surgery for left distal Tib/Fib fracture. She had excellent glycemic control yesterday with only 3 units of novolog on board. * Fasting BSGs have been acceptable without basal insulin. * Tolerating oral diet and Scr at baseline - will resume metformin and loosen carb coverage. Will likely be able to stop carb coverage on 12/14. Background * Alma Rosa is a T2DM female admitted for mechanical fall and found to have tibia and fibula fracture. Orthopedics was consulted and recommended closed reduction, splinting and plan for OR. Patient is currently NPO. * Will hold oral agents in the setting of upcoming surgery and start SQ basal + bolus insulin: * Novolog per weight/stress 2 * Initiate basal insulin when additional BSG data is avail (fasting of 137 mg/dL this am) * Patient may require NPH if given elier-operatively steroids PLAN FOR INPATIENT GLYCEMIC CONTROL: * Resume metformin 500 mg PO BID with meals * Basal insulin * none * Bolus insulin * NovoLog per scale ACHS or Q6hrs while NPO * Goal Range: Low 110 mg/dL - High 140 mg/dL * Correction Factor: 30 mg/dL/unit * Nutritional / Prandial insulin per carb ratio of 1 unit per 15 grams CHO consumed PLAN FOR DISCHARGE: * A1c = 8.5% * Recommend continuation of Jardiance and metformin on discharge. * Continue to titrate metformin dosing upwards as recommended. Dosage increases should be made in increments of 500 mg weekly, up to 2,000 mg/day PO, given in divided doses. Doses above 2000 mg/day may be better tolerated if divided and given 3 times per day with meals. Max: 2,550 mg/day PO, in divided doses
[2020-12-13] MEDS: metFORMIN HCL 500 MG TAB PO SCH (18:08)
[2020-12-13] MEDS: DOCUSATE SODIUM/SENNA 50/8.6MG TAB PO SCH (20:46)
[2020-12-13] MEDS ORDERED: ceFAZolin 1000MG 1,000 MG/7.5 ML SYR IV SCH (23:00)
[2020-12-14] MEDS: oxyCODONE/ACETAMINOPHEN 5mg/325mg TAB PO PRN ×3 (06:03→20:24)
[2020-12-14] MEDS: SPIRONOLACTONE 12.5 MG TAB PO SCH (08:02)
[2020-12-14] MEDS: MULTIVITAMIN TAB PO SCH (08:02)
[2020-12-14] MEDS: DOCUSATE SODIUM 100 MG CAP PO SCH ×2 (08:02→20:17)
[2020-12-14] MEDS: ASPIRIN 81 MG ECTAB PO SCH ×2 (08:02→20:17)
[2020-12-14] MEDS: PANTOprazole 40 MG TAB PO SCH (08:02)
[2020-12-14] MEDS: METOPROLOL TARTRATE 50 MG TAB PO SCH ×2 (08:03→20:25)
[2020-12-14] MEDS: MAGNESIUM OXIDE 400 MG TAB PO SCH ×2 (08:03→20:17)
[2020-12-14] MEDS: ROSUVASTATIN CALCIUM 10 MG TAB PO SCH (08:03)
[2020-12-14] MEDS: metFORMIN HCL 500 MG TAB PO SCH ×2 (08:03→17:59)
[2020-12-14 08:42] LABS: Hematocrit (blood only) 31.3 % (37-47); Hemoglobin 10.3 g/dL (12.0-16.0); Mean Corpuscular Hemoglobin 28.9 pg (25-34); Mean Corpuscular Hgb Conc 32.9 g/dL (32-36); Mean Corpuscular Volume 87.9 fL (80-100); Mean Platelet Volume 10.4 fL (7.4-10.4); Platelet Count 204 K/uL (130-400); RDW Coefficient of Variation 13.4 % (11.5-14.5); RDW Standard Deviation 43.2 fL (36.4-46.3); Red Blood Count 3.56 M/uL (4.2-5.4); White Blood Count 6.32 K/uL (4.8-10.8)
[2020-12-14] MEDS ORDERED: LANTUS PER UNIT CHARGE SQ ONE (08:45)
[2020-12-14] MEDS: INSULIN ASPART 100 UNITS/ML 3 ML PEN SC SCH ×4 (08:46→20:37)
[2020-12-14 08:54] LABS: BUN Creatinine Ratio 16.6 (10-20); Calcium 8.9 mg/dl (8.5-10.1); Creatinine Clr Calc Pharmacy 47.4 ml/min; Est GFR (African American) 55.5 ml/min; Est GFR (Non-African American) 47.9 ml/min; Phosphorus 2.6 mg/dl (2.5-4.9); Potassium 3.9 mmol/L (3.5-5.1)
--- NOTE | 2020-12-14 10:06 | Orthopedic Progress Note ---
Date of Service December 14, 2020 Assessment & Plan (1) Fracture of left tibia and fibula: Plan: POD 2 s/p Open reduction and internal fixation of left displaced comminuted angulated tibia and fibular fractures, distal one-third shaft with Synthes minimally invasive surgical system plate and a fibular locking plate Postoperative x-rays reviewed with the patient. PT/OT--Patient ambulated well today. NWB LLE DVT prophylaxis - ASA bid Pain management as written. DC planning - plan for dc to home. Patient doing well from an orthopedic standpoint to be able to be discharged home today. Orthopedics will sign off at this time. Discharge instructions placed. Admission and Anticipated Discharge Date Admission Date: December 11, 2020 Subjective Patient states she is doing better today. She had a lot of pain yesterday. But, the pain is much improved today. She has participated in physical therapy and has ambulated with a walker. Physical Exam Constitutional: WD/WN, vitals as above Musculoskeletal: Ankle: + surgical incision (Left ankle: Splint in place. C/D/I. Toes mobile. Cap refill immediate.); no skin erythema and no ecchymosis Neurologic: normal touch/pain/proprioception Psychiatric: A+Ox3, euthymic affect Speech: normal rate/rhythm/volume of speech Results & Data ([facility]) Vital Signs (Past 12 Hours) Vital Signs Temp Pulse Resp BP Pulse Ox 12/14/20 06:41 36.8 C 77 16 116/73 96 12/13/20 23:36 36.8 C 68 16 96/59 L 96
[2020-12-14] MEDS: amLODIPine BESYLATE 5 MG TAB PO SCH (12:26)
--- NOTE | 2020-12-14 14:37 | Hospitalist Progress Note ---
Date of Service December 14, 2020 Assessment & Plan (1) Fractured tibia and fibula: Plan: Pathological fracture, left tibia/fibula, in the setting of falling from a standing position This is a 55-year-old female who has a past medical history of type a aortic dissection status post repair complicated by postoperative A. 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 Xray: IMPRESSION: 1. Acute, comminuted, angulated and mildly displaced fracture of the mid to distal tibial diaphysis. 2. Acute comminuted, angulated and displaced fracture of the distal fibula. Orthopedics consulted - s/p ORIF Tibia/Fibula Fracture with Synthes minimally invasive tibial plating system and locking fibular plate. (Left) 11/15 Tdap administered in ED Discussed case with Dr. Goff who follows pt in cardiology clinic - saw pat ient for preop evaluation Echo - Mild concentric LVH. No regional wall motion abnormality noted. LVEF 55 to 60%. Aortic valve is trileaflet. Aortic stenosis is absent. There is no significant aortic regurg. Mild aortic root dilatation is present with surgical repair and replacement of the ascending aorta appears intact. Compared to prior study in May 2020, there is no significant interval change. PT/OT. - ambulated wth walker NWB LLE DVT prophylaxis - ASA bid Pain management as written. 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 Goff Continue home medications for blood pressure, amlodipine, metoprolol, spironolactone Prescribed regimen of lasix, will hold lasix for now (4) Type 2 diabetes mellitus: Plan: last a1c 8.4 on 12/07 hold metformin and Jardiance (pt takes sparingly) lantus/novolog per protocol consult glycemic pharmacy will need to follow up as outpt (5) HTN (hypertension): Plan: BP well controlled continue home meds - as above monitor closely (6) DVT prophylaxis: Plan: SCDs, ASA BID (per ortho) Dispo: med/surg PCP: Dr. Redman Full Code Admission and Anticipated Discharge Date Admission Date: December 11, 2020 Subjective Patient seen in follow-up of tibial, fibular fracture Pt is laying in bed, not in distress s/p ORIF for tibial/fibular fracture 2 days ago Currently denies any chest pain, shortness of breath, palpitations, dizziness Reports that she worked with PT, pain w/ ambulation Review of Systems Review of Systems: All systems reviewed & are unremarkable except as noted in Subjective Physical Exam Physical Exam: Constitutional: WD/WN, F,lying in bed, in NAD Head: Normocephalic, Atraumatic Eyes: PERRL, EOMI, conjunctivae normal, anicteric sclerae ENMT: external ear and nose normal, oropharynx normal Neck: normal visual inspection Respiratory: normal respiratory effort, lungs clear to auscultation, no wheeze, rales, rhonchi. Normal insp/exp effort, no accessory muscle use Cardiovascular: RRR, no murmur, no edema Vessels: no JVD or carotid bruit Chest: sternal scar noted, normal inspection of chest Abdomen: normal bowel sounds, soft, nontender Musculoskeletal: LLE in splint/surgical dressings, toes on left lower extremity warm, well-perfused, patient is able to move toes Skin: no rashes, warm and dry normal turgor Neurologic: PERRL, EOMI, no face palsy, no dysarthria, moves all extremities Psychiatric: A+Ox3, euthymic affect Results & Data Results & Data ([facility]) Vital Signs (Past 12 Hours) Vital Signs Temp Pulse Resp BP Pulse Ox 12/14/20 06:41 36.8 C 77 16 116/73 96 Laboratory Results 12/14/20 12/14/20 12/14/20 Range/Units 12:19 08:14 07:37 WBC (4.8-10.8) K/uL RBC (4.2-5.4) M/uL Hgb (12.0-16.0) g/dL Hct (37-47) % MCV (80-100) fL MCH (25-34) pg MCHC (32-36) g/dL RDW Std Deviation (36.4-46.3) fL RDW Coeff of Elaina (11.5-14.5) % Plt Count (130-400) K/uL MPV (7.4-10.4) fL Sodium 138 (136-145) mmol/L Potassium 3.9 (3.5-5.1) mmol/L Chloride 108 H (98-107) mmol/L Carbon Dioxide 24 (21-32) mmol/L Anion Gap 6.0 (3-11) BUN 21 H D (7-18) mg/dl Creatinine 1.26 H D (0.6-1.2) mg/dl Est Cr Clr Drug Dosing 47.4 ml/min Est GFR ( Amer) 55.5 ml/min Est GFR (Non-Af Amer) 47.9 ml/min BUN/Creatinine Ratio 16.6 (10-20) Glucose 173 H (70-99) mg/dl POC Glucose 108 H 172 H (70-99) mg/dl Calcium 8.9 (8.5-10.1) mg/dl Phosphorus 2.6 (2.5-4.9) mg/dl Magnesium 2.0 (1.8-2.4) mg/dl 12/14/20 12/13/20 12/13/20 Range/Units 07:37 20:39 16:50 WBC 6.32 (4.8-10.8) K/uL RBC 3.56 L (4.2-5.4) M/uL Hgb 10.3 L (12.0-16.0) g/dL Hct 31.3 L (37-47) % MCV 87.9 (80-100) fL MCH 28.9 (25-34) pg MCHC 32.9 (32-36) g/dL RDW Std Deviation 43.2 (36.4-46.3) fL RDW Coeff of Elaina 13.4 (11.5-14.5) % Plt Count 204 (130-400) K/uL MPV 10.4 (7.4-10.4) fL Sodium (136-145) mmol/L Potassium (3.5-5.1) mmol/L Chloride (98-107) mmol/L Carbon Dioxide (21-32) mmol/L Anion Gap (3-11) BUN (7-18) mg/dl Creatinine (0.6-1.2) mg/dl Est Cr Clr Drug Dosing ml/min Est GFR ( Amer) ml/min Est GFR (Non-Af Amer) ml/min BUN/Creatinine Ratio (10-20) Glucose (70-99) mg/dl POC Glucose 232 H 152 H (70-99) mg/dl Calcium (8.5-10.1) mg/dl Phosphorus (2.5-4.9) mg/dl Magnesium (1.8-2.4) mg/dl Medications Administered Current Inpatient Medications Acetaminophen (Acetaminophen 325 Mg Tab) 650 mg PO Q4H PRN PRN Reason: pain/fever Stop: 01/10/21 21:14 Al Hydrox/Mg Hydrox/Simethicone (Aluminum/Magnesium Susp 30 Ml Udc) 30 ml PO Q6H PRN PRN Reason: Dyspepsia Stop: 01/10/21 21:14 Amlodipine Besylate (Amlodipine Besylate 5 Mg Tab) 10 mg PO DAILY [facility] Stop: 01/11/21 08:59 Last Admin: 12/14/20 12:26 Dose: 10 mg Documented by: Aspirin (Aspirin 81 Mg Ectab) 81 mg PO BID [facility] Stop: 01/11/21 20:59 Last Admin: 12/14/20 08:02 Dose: 81 mg Documented by: Bisacodyl (Bisacodyl 10 Mg Supp) 10 mg MN DAILY PRN PRN Reason: Constipation Stop: 01/10/21 21:14 Dextrose (Dextrose 50% 50 Ml Syringe) 25 - 50 ml IV UD PRN; Protocol PRN Reason: Hypoglycemia Protocol Stop: 01/10/21 21:14 Docusate Sodium (Docusate Sodium 100 Mg Cap) 100 mg PO BID [facility] Stop: 01/11/21 20:59 Last Admin: 12/14/20 08:02 Dose: 100 mg Documented by: Glucagon (Glucagon For Inj 1 Mg Vial) 1 mg SQ UD PRN; Protocol PRN Reason: Hypoglycemia Protocol Stop: 01/10/21 21:14 Glucose (Glucose 10 Tabs/Tube) 4 - 8 tabs PO UD PRN; Protocol PRN Reason: Hypoglycemia Protocol Stop: 01/10/21 21:14 Glucose (Glucose 40% Gel 15 Gm Tube) 15 - 30 gm PO UD PRN; Protocol PRN Reason: Hypoglycemia Protocol Stop: 01/10/21 21:14 Sodium Chloride (Nss 1000ml) 1,000 mls @ 80 mls/hr IV .[id number] [facility] Stop: 01/13/21 14:44 Insulin Aspart (Insulin Aspart 100 Units/Ml 3 Ml Pen) 0 units SC ACHS [facility]; Protocol Stop: 01/11/21 22:29 Last Admin: 12/14/20 12:24 Dose: 4 units Documented by: Magnesium Hydroxide (Magnesium Hydroxide Susp 30 Ml Udc) 30 ml PO Q6H PRN PRN Reason: Constipation Stop: 01/10/21 21:14 Magnesium Oxide (Magnesium Oxide 400 Mg Tab) 400 mg PO BID [facility] Stop: 12/15/20 09:01 Last Admin: 12/14/20 08:03 Dose: 400 mg Documented by: Metformin HCl (Metformin Hcl 500 Mg Tab) 500 mg PO BIDM [facility] Stop: 01/12/21 16:59 Last Admin: 12/14/20 08:03 Dose: 500 mg Documented by: Metoprolol Tartrate (Metoprolol Tartrate 50 Mg Tab) 150 mg PO BID [facility] Stop: 01/10/21 21:29 Last Admin: 12/14/20 08:03 Dose: 150 mg Documented by: Miscellaneous (Carbohydrates For Hypoglycemia ) 15 - 30 gm PO UD PRN PRN Reason: Hypoglycemia Protocol Stop: 01/10/21 21:14 Miscellaneous Information (Pharmacy Glycemic Mgmt Consult) 1 ea N/A UD PRN; Protocol PRN Reason: Consult Stop: 01/10/21 21:14 Morphine Sulfate (Morphine Sulfate 4 Mg/Ml 1 Ml Carp\Vial) 4 mg IV Q3H PRN PRN Reason: Pain (6,7,8,9,10) Stop: 12/25/20 21:14 Last Admin: 12/13/20 14:39 Dose: 4 mg Documented by: Multivitamins (Multivitamin Tab) 1 tab PO QAM [facility] Stop: 01/12/21 08:59 Last Admin: 12/14/20 08:02 Dose: 1 tab Documented by: Naloxone HCl (Naloxone Hcl 0.4 Mg/1 Ml Vial/Carp) 0.1 mg IV Q5M PRN PRN Reason: Oversedation/Resp Depression Stop: 01/11/21 19:35 Ondansetron HCl (Ondansetron Inj 2 Mg/Ml 2 Ml Vial) 4 mg IV Q6H PRN PRN Reason: Nausea Stop: 01/10/21 21:14 Last Admin: 12/12/20 07:07 Dose: 4 mg Documented by: Oxycodone/Acetaminophen (Oxycodone/Acetaminophen 5mg/325mg Tab) 1 tab PO Q4H PRN PRN Reason: MODERATE Pain (4,5,6) & Pre PT Stop: 12/25/20 21:14 Oxycodone/Acetaminophen (Oxycodone/Acetaminophen 5mg/325mg Tab) 2 tab PO Q4H PRN PRN Reason: SEVERE Pain (7,8,9,10) Stop: 12/25/20 21:14 Last Admin: 12/14/20 12:28 Dose: 2 tab Documented by: Pantoprazole Sodium (Pantoprazole 40 Mg Tab) 40 mg PO DAILY [facility]; Protocol Stop: 01/11/21 08:59 Last Admin: 12/14/20 08:02 Dose: 40 mg Documented by: Polyethylene Glycol (Polyethylene (Miralax) 17 Gm Pack) 17 gm PO DAILY PRN PRN Reason: Constipation Stop: 01/10/21 21:14 Rosuvastatin Calcium (Rosuvastatin Calcium 10 Mg Tab) 10 mg PO QAM [facility] Stop: 01/11/21 08:59 Last Admin: 12/14/20 08:03 Dose: 10 mg Documented by: Senna/Docusate Sodium (Docusate Sodium/Senna 50/8.6mg Tab) 2 tab PO HS [facility] Stop: 01/10/21 21:29 Last Admin: 12/13/20 20:46 Dose: 2 tab Documented by: Spironolactone (Spironolactone 12.5 Mg Tab) 12.5 mg PO DAILY [facility] Stop: 01/11/21 08:59 Last Admin: 12/14/20 08:02 Dose: 12.5 mg Documented by: (1) Fractured tibia and fibula Encounter type: initial encounter Laterality: left
--- NOTE | 2020-12-14 15:25 | Pharmacy Report ---
Pharmacy Glycemic Short Note 2 - Date of Service December 14, 2020 - Glycemic Short BSG Results (Last 24 hours): 12/13/20 12/13/20 12/14/20 16:50 20:39 07:37 Glucose 173 H POC Glucose 152 H 232 H 12/14/20 12/14/20 08:14 12:19 Glucose POC Glucose 172 H 108 H OUTPATIENT ANTIDIABETIC REGIMEN: * Jardiance 10 mg PO daily * Metformin 500 mg PO BID ASSESSMENT: 12/14: * Alma Rosa received 15 units of bolus insulin yesterday. Her metformin was resumed with dinner. * She developed hyperglycemia at bedtime and again this morning, fasting of 172 mg/dL. Lantus will be added. * Post prandial BSGs trending upward, therefore novolog parameters were tightened this am. May need loosened tomorrow once basal kicks in. 12/13: * Alma Rosa is POD #1 s/p surgery for left distal Tib/Fib fracture. She had excellent glycemic control yesterday with only 3 units of novolog on board. * Fasting BSGs have been acceptable without basal insulin. * Tolerating oral diet and Scr at baseline - will resume metformin and loosen carb coverage. Will likely be able to stop carb coverage on 12/14. Background * Alma Rosa is a T2DM female admitted for mechanical fall and found to have tibia and fibula fracture. Orthopedics was consulted and recommended closed reduction, splinting and plan for OR. Patient is currently NPO. * Will hold oral agents in the setting of upcoming surgery and start SQ basal + bolus insulin: * Novolog per weight/stress 2 * Initiate basal insulin when additional BSG data is avail (fasting of 137 mg/dL this am) * Patient may require NPH if given elier-operatively steroids PLAN FOR INPATIENT GLYCEMIC CONTROL: * Resume metformin 500 mg PO BID with meals * Basal insulin * Lantus 10 units SQ x 1 * Bolus insulin * NovoLog per scale ACHS or Q6hrs while NPO * Goal Range: Low 110 mg/dL - High 140 mg/dL * Correction Factor: 30 mg/dL/unit * Nutritional / Prandial insulin per carb ratio of 1 unit per 10 grams CHO consumed PLAN FOR DISCHARGE: * A1c = 8.5% * Recommend continuation of Jardiance and metformin on discharge. * Continue to titrate metformin dosing upwards as recommended. Dosage increases should be made in increments of 500 mg weekly, up to 2,000 mg/day PO, given in divided doses. Doses above 2000 mg/day may be better tolerated if divided and given 3 times per day with meals. Max: 2,550 mg/day PO, in divided doses
[2020-12-14] MEDS: SODIUM CHLORIDE 0.9% 1000ML 1,000 ML IV SCH (15:26)
[2020-12-14] MEDS: DOCUSATE SODIUM/SENNA 50/8.6MG TAB PO SCH (20:17)
[2020-12-15] MEDS: SODIUM CHLORIDE 0.9% 1000ML 1,000 ML IV SCH (03:44)
[2020-12-15] MEDS: oxyCODONE/ACETAMINOPHEN 5mg/325mg TAB PO PRN ×2 (07:41→13:24)
[2020-12-15] MEDS: metFORMIN HCL 500 MG TAB PO SCH (07:41)
[2020-12-15] MEDS: ROSUVASTATIN CALCIUM 10 MG TAB PO SCH (09:07)
[2020-12-15] MEDS: SPIRONOLACTONE 12.5 MG TAB PO SCH (09:07)
[2020-12-15] MEDS: MULTIVITAMIN TAB PO SCH (09:08)
[2020-12-15] MEDS: DOCUSATE SODIUM 100 MG CAP PO SCH (09:08)
[2020-12-15] MEDS: MAGNESIUM OXIDE 400 MG TAB PO SCH (09:08)
[2020-12-15] MEDS: amLODIPine BESYLATE 5 MG TAB PO SCH (09:08)
[2020-12-15] MEDS: PANTOprazole 40 MG TAB PO SCH (09:08)
[2020-12-15] MEDS: ASPIRIN 81 MG ECTAB PO SCH (09:08)
[2020-12-15] MEDS: METOPROLOL TARTRATE 50 MG TAB PO SCH (09:08)
[2020-12-15] MEDS: INSULIN ASPART 100 UNITS/ML 3 ML PEN SC SCH ×2 (09:16→13:27)
--- NOTE | 2020-12-15 10:03 | Hospitalist Progress Note ---
Date of Service December 15, 2020 Assessment & Plan (1) Fractured tibia and fibula: Plan: Pathological fracture, left tibia/fibula, in the setting of falling from a standing position This is a 55-year-old female who has a past medical history of type a aortic dissection status post repair complicated by postoperative A. 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 Xray: IMPRESSION: 1. Acute, comminuted, angulated and mildly displaced fracture of the mid to distal tibial diaphysis. 2. Acute comminuted, angulated and displaced fracture of the distal fibula. Orthopedics consulted - s/p ORIF Tibia/Fibula Fracture with Synthes minimally invasive tibial plating system and locking fibular plate. (Left) 11/15 Tdap administered in ED Discussed case with Dr. Goff who follows pt in cardiology clinic - saw pat ient for preop evaluation Echo - Mild concentric LVH. No regional wall motion abnormality noted. LVEF 55 to 60%. Aortic valve is trileaflet. Aortic stenosis is absent. There is no significant aortic regurg. Mild aortic root dilatation is present with surgical repair and replacement of the ascending aorta appears intact. Compared to prior study in May 2020, there is no significant interval change. PT/OT. 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 Goff Continue home medications for blood pressure, amlodipine, metoprolol, spironolactone Prescribed regimen of lasix, will hold lasix for now (4) Type 2 diabetes mellitus: Plan: last a1c 8.4 on 12/07 hold metformin and Jardiance (pt takes sparingly) lantus/novolog per protocol consult glycemic pharmacy will need to follow up as outpt (5) HTN (hypertension): Plan: BP well controlled continue home meds - as above monitor closely (6) DVT prophylaxis: Plan: SCDs, ASA BID (per ortho) Dispo: med/surg PCP: Dr. Redman Full Code Admission and Anticipated Discharge Date Admission Date: December 11, 2020 Subjective Patient seen in follow-up of tibial, fibular fracture Pt is laying in bed, not in distress s/p ORIF for tibial/fibular fracture Currently denies any chest pain, shortness of breath, palpitations, dizziness Reports that she worked with PT, pain w/ ambulation Review of Systems Review of Systems: All systems reviewed & are unremarkable except as noted in Subjective Physical Exam Physical Exam: Constitutional: WD/WN, F,lying in bed, in NAD Head: Normocephalic, Atraumatic Eyes: PERRL, EOMI, conjunctivae normal, anicteric sclerae ENMT: external ear and nose normal, oropharynx normal Neck: normal visual inspection Respiratory: normal respiratory effort, lungs clear to auscultation, no wheeze, rales, rhonchi. Normal insp/exp effort, no accessory muscle use Cardiovascular: RRR, no murmur, no edema Vessels: no JVD or carotid bruit Chest: sternal scar noted, normal inspection of chest Abdomen: normal bowel sounds, soft, nontender Musculoskeletal: LLE in splint/surgical dressings, toes on left lower extremity warm, well-perfused, patient is able to move toes Skin: no rashes, warm and dry normal turgor Neurologic: PERRL, EOMI, no face palsy, no dysarthria, moves all extremities Psychiatric: A+Ox3, euthymic affect Results & Data Results & Data ([facility]) Vital Signs (Past 12 Hours) Vital Signs Temp Pulse Resp BP Pulse Ox 12/15/20 07:15 36.8 C 77 16 114/71 94 12/14/20 23:00 37.2 C 85 16 123/73 96 Laboratory Results 12/15/20 12/15/20 12/15/20 Range/Units 10:10 10:10 08:23 WBC 4.90 (4.8-10.8) K/uL RBC 3.24 L (4.2-5.4) M/uL Hgb 9.3 L (12.0-16.0) g/dL Hct 28.3 L (37-47) % MCV 87.3 (80-100) fL MCH 28.7 (25-34) pg MCHC 32.9 (32-36) g/dL RDW Std Deviation 43.4 (36.4-46.3) fL RDW Coeff of Elaina 13.4 (11.5-14.5) % Plt Count 205 (130-400) K/uL MPV 10.4 (7.4-10.4) fL Sodium 139 (136-145) mmol/L Potassium 3.9 (3.5-5.1) mmol/L Chloride 109 H (98-107) mmol/L Carbon Dioxide 23 (21-32) mmol/L Anion Gap 7.0 (3-11) BUN 20 H (7-18) mg/dl Creatinine 1.06 (0.6-1.2) mg/dl Est Cr Clr Drug Dosing 56.4 ml/min Est GFR ( Amer) 68.5 ml/min Est GFR (Non-Af Amer) 59.1 ml/min BUN/Creatinine Ratio 19.2 (10-20) Glucose 143 H (70-99) mg/dl POC Glucose 165 H (70-99) mg/dl Calcium 8.4 L (8.5-10.1) mg/dl Phosphorus 3.0 (2.5-4.9) mg/dl Magnesium 1.9 (1.8-2.4) mg/dl 12/14/20 12/14/20 12/14/20 Range/Units 20:21 17:22 12:19 WBC (4.8-10.8) K/uL RBC (4.2-5.4) M/uL Hgb (12.0-16.0) g/dL Hct (37-47) % MCV (80-100) fL MCH (25-34) pg MCHC (32-36) g/dL RDW Std Deviation (36.4-46.3) fL RDW Coeff of Elaina (11.5-14.5) % Plt Count (130-400) K/uL MPV (7.4-10.4) fL Sodium (136-145) mmol/L Potassium (3.5-5.1) mmol/L Chloride (98-107) mmol/L Carbon Dioxide (21-32) mmol/L Anion Gap (3-11) BUN (7-18) mg/dl Creatinine (0.6-1.2) mg/dl Est Cr Clr Drug Dosing ml/min Est GFR ( Amer) ml/min Est GFR (Non-Af Amer) ml/min BUN/Creatinine Ratio (10-20) Glucose (70-99) mg/dl POC Glucose 122 H 122 H 108 H (70-99) mg/dl Calcium (8.5-10.1) mg/dl Phosphorus (2.5-4.9) mg/dl Magnesium (1.8-2.4) mg/dl Medications Administered Current Inpatient Medications Acetaminophen (Acetaminophen 325 Mg Tab) 650 mg PO Q4H PRN PRN Reason: pain/fever Stop: 01/10/21 21:14 Al Hydrox/Mg Hydrox/Simethicone (Aluminum/Magnesium Susp 30 Ml Udc) 30 ml PO Q6H PRN PRN Reason: Dyspepsia Stop: 01/10/21 21:14 Amlodipine Besylate (Amlodipine Besylate 5 Mg Tab) 10 mg PO DAILY [facility] Stop: 01/11/21 08:59 Last Admin: 12/15/20 09:08 Dose: 10 mg Documented by: Aspirin (Aspirin 81 Mg Ectab) 81 mg PO BID ZOHREH Stop: 01/11/21 20:59 Last Admin: 12/15/20 09:08 Dose: 81 mg Documented by: Bisacodyl (Bisacodyl 10 Mg Supp) 10 mg ND DAILY PRN PRN Reason: Constipation Stop: 01/10/21 21:14 Dextrose (Dextrose 50% 50 Ml Syringe) 25 - 50 ml IV UD PRN; Protocol PRN Reason: Hypoglycemia Protocol Stop: 01/10/21 21:14 Docusate Sodium (Docusate Sodium 100 Mg Cap) 100 mg PO BID ZOHREH Stop: 01/11/21 20:59 Last Admin: 12/15/20 09:08 Dose: 100 mg Documented by: Glucagon (Glucagon For Inj 1 Mg Vial) 1 mg SQ UD PRN; Protocol PRN Reason: Hypoglycemia Protocol Stop: 01/10/21 21:14 Glucose (Glucose 10 Tabs/Tube) 4 - 8 tabs PO UD PRN; Protocol PRN Reason: Hypoglycemia Protocol Stop: 01/10/21 21:14 Glucose (Glucose 40% Gel 15 Gm Tube) 15 - 30 gm PO UD PRN; Protocol PRN Reason: Hypoglycemia Protocol Stop: 01/10/21 21:14 Sodium Chloride (Nss 1000ml) 1,000 mls @ 80 mls/hr IV .[id number] [facility] Stop: 01/13/21 14:44 Last Admin: 12/15/20 03:44 Dose: 80 mls/hr Documented by: Insulin Aspart (Insulin Aspart 100 Units/Ml 3 Ml Pen) 0 units SC ACHS [facility]; Protocol Stop: 01/11/21 22:29 Last Admin: 12/15/20 09:16 Dose: 3 units Documented by: Magnesium Hydroxide (Magnesium Hydroxide Susp 30 Ml Udc) 30 ml PO Q6H PRN PRN Reason: Constipation Stop: 01/10/21 21:14 Metformin HCl (Metformin Hcl 500 Mg Tab) 500 mg PO BIDM [facility] Stop: 01/12/21 16:59 Last Admin: 12/15/20 07:41 Dose: 500 mg Documented by: Metoprolol Tartrate (Metoprolol Tartrate 50 Mg Tab) 150 mg PO BID [facility] Stop: 01/10/21 21:29 Last Admin: 12/15/20 09:08 Dose: 150 mg Documented by: Miscellaneous (Carbohydrates For Hypoglycemia ) 15 - 30 gm PO UD PRN PRN Reason: Hypoglycemia Protocol Stop: 01/10/21 21:14 Miscellaneous Information (Pharmacy Glycemic Mgmt Consult) 1 ea N/A UD PRN; Protocol PRN Reason: Consult Stop: 01/10/21 21:14 Morphine Sulfate (Morphine Sulfate 4 Mg/Ml 1 Ml Carp\Vial) 4 mg IV Q3H PRN PRN Reason: Pain (6,7,8,9,10) Stop: 12/25/20 21:14 Last Admin: 12/13/20 14:39 Dose: 4 mg Documented by: Multivitamins (Multivitamin Tab) 1 tab PO QAM [facility] Stop: 01/12/21 08:59 Last Admin: 12/15/20 09:08 Dose: 1 tab Documented by: Naloxone HCl (Naloxone Hcl 0.4 Mg/1 Ml Vial/Carp) 0.1 mg IV Q5M PRN PRN Reason: Oversedation/Resp Depression Stop: 01/11/21 19:35 Ondansetron HCl (Ondansetron Inj 2 Mg/Ml 2 Ml Vial) 4 mg IV Q6H PRN PRN Reason: Nausea Stop: 01/10/21 21:14 Last Admin: 12/12/20 07:07 Dose: 4 mg Documented by: Oxycodone/Acetaminophen (Oxycodone/Acetaminophen 5mg/325mg Tab) 1 tab PO Q4H PRN PRN Reason: MODERATE Pain (4,5,6) & Pre PT Stop: 12/25/20 21:14 Oxycodone/Acetaminophen (Oxycodone/Acetaminophen 5mg/325mg Tab) 2 tab PO Q4H PRN PRN Reason: SEVERE Pain (7,8,9,10) Stop: 12/25/20 21:14 Last Admin: 12/15/20 07:41 Dose: 2 tab Documented by: Pantoprazole Sodium (Pantoprazole 40 Mg Tab) 40 mg PO DAILY [facility]; Protocol Stop: 01/11/21 08:59 Last Admin: 12/15/20 09:08 Dose: 40 mg Documented by: Polyethylene Glycol (Polyethylene (Miralax) 17 Gm Pack) 17 gm PO DAILY PRN PRN Reason: Constipation Stop: 01/10/21 21:14 Rosuvastatin Calcium (Rosuvastatin Calcium 10 Mg Tab) 10 mg PO QAM ZOHREH Stop: 01/11/21 08:59 Last Admin: 12/15/20 09:07 Dose: 10 mg Documented by: Senna/Docusate Sodium (Docusate Sodium/Senna 50/8.6mg Tab) 2 tab PO HS [facility] Stop: 01/10/21 21:29 Last Admin: 12/14/20 20:17 Dose: 2 tab Documented by: Spironolactone (Spironolactone 12.5 Mg Tab) 12.5 mg PO DAILY [facility] Stop: 01/11/21 08:59 Last Admin: 12/15/20 09:07 Dose: 12.5 mg Documented by: (1) Fractured tibia and fibula Encounter type: initial encounter Laterality: left
[2020-12-15 10:26] LABS: Hematocrit (blood only) 28.3 % (37-47); Hemoglobin 9.3 g/dL (12.0-16.0); Mean Corpuscular Hemoglobin 28.7 pg (25-34); Mean Corpuscular Hgb Conc 32.9 g/dL (32-36); Mean Corpuscular Volume 87.3 fL (80-100); Mean Platelet Volume 10.4 fL (7.4-10.4); Platelet Count 205 K/uL (130-400); RDW Coefficient of Variation 13.4 % (11.5-14.5); RDW Standard Deviation 43.4 fL (36.4-46.3); Red Blood Count 3.24 M/uL (4.2-5.4)
[2020-12-15] MEDS ORDERED: INSULIN GLARGINE SOLOSTAR 100 UNITS/ML 3 ML PEN SC SCH (10:45)
[2020-12-15 10:55] LABS: BUN Creatinine Ratio 19.2 (10-20); Calcium 8.4 mg/dl (8.5-10.1); Creatinine Clr Calc Pharmacy 56.4 ml/min; Est GFR (African American) 68.5 ml/min; Est GFR (Non-African American) 59.1 ml/min; Magnesium 1.9 mg/dl (1.8-2.4); Potassium 3.9 mmol/L (3.5-5.1)
--- NOTE | 2020-12-15 12:06 | Discharge Summary ---
Date of Service December 15, 2020 Admission HPI Per Admitting Provider This is a 55-year-old female who has a past medical history of type a aortic dissection status post repair complicated by postoperative A. fib and post cardiotomy syndrome requiring thoracentesis of left lung x3 and treatment with anti-inflammatories and medical management, HTN, HLD, T2DM, hx covid-19, who presents to ED after sustaining mechanical fall. She states she was opening the garage door and felt like she might have slipped on a wet surface, felt her leg go out underneath her and fell on her left side. She had immediate pain and was unable to get up. EMS was summoned. There was initial concern for possible open fracture secondary to puncture wound to left lateral leg. She received 2g ancef by EMS. She had a puncture wound and obvious deformity to LLE. Xray obtained revealed Acute, comminuted, angulated and mildly displaced fracture of the mid to distal tibial diaphysis & Acute comminuted, angulated and displaced fracture of the distal fibula. Orthopedics was consulted to recommended closed reduction, splinting and plan for OR tomorrow. Pt currently complains of 9/10 pain. She denies numbness or tingling. Prior to todays fall she denies recent illness, f/c/s, chest pain, sob, cough, n/v/d, change in bowel or urinary habits. She follows closely with Dr. Goff and Tatiana Rose 2/ to hx of type a thoracic aorta dissection s/p repair. Her last echo was 05/2020 which revealed normal EF, grade 1 diastolic dysfunction, small pericardial effusion. She states she occasionally gets chest pain when walking up more than 5 steps. It does not happen every time but when it does it resolves immediately with rest. She also admits to stopping her lasix, aldactone and potassium. She states she talked to a provider and it was okay to do so. She denies any weight gain, orthopnea or edema. Her was at bedside and was replaced by their daughter. Admission Exam Per Admitting Provider Constitutional: WD/WN, F, in acute pain, vitals as above,lying in bed, pleasant, conversing easily Head: Normocephalic, Atraumatic Eyes: PERRL, conjunctivae normal, anicteric sclerae ENMT: external ear and nose normal, oropharynx normal Neck: trachea midline, no thyromegaly normal visual inspection Respiratory: normal respiratory effort, lungs clear to auscultation, no wheeze, rales, rhonchi. Normal insp/exp effort, no accessory muscle use Cardiovascular: RRR, no murmur, no edema Vessels: no JVD or carotid bruit Chest: sternal scar noted, normal inspection of chest Abdomen: normal bowel sounds, soft, nontender, no hepatosplenomegaly Musculoskeletal: no cyanosis or clubbing, +puncture wound to LLE with obvious deformity to L pretibial surface, NVI distally Skin: no rashes, warm and dry normal turgor Neurologic: PERRL, EOMI, accommodation nl, no face palsy, no dysarthria CN's II-XI intact bilaterally and moves all extremities Psychiatric: A+Ox3, euthymic affect Lymphatic: no cervical or axillary lymphadenopathy : deferred Principal Diagnosis Fractured tibia and fibula Discharge Exam Constitutional: WD/WN, F,lying in bed, in NAD Head: Normocephalic, Atraumatic Eyes: PERRL, EOMI, conjunctivae normal, anicteric sclerae ENMT: external ear and nose normal, oropharynx normal Neck: normal visual inspection Respiratory: normal respiratory effort, lungs clear to auscultation, no wheeze, rales, rhonchi. Normal insp/exp effort, no accessory muscle use Cardiovascular: RRR, no murmur, no edema Vessels: no JVD or carotid bruit Chest: sternal scar noted, normal inspection of chest Abdomen: normal bowel sounds, soft, nontender Musculoskeletal: LLE in splint/surgical dressings, toes on left lower extremity warm, well-perfused, patient is able to move toes Skin: no rashes, warm and dry normal turgor Neurologic: PERRL, EOMI, no face palsy, no dysarthria, moves all extremities Psychiatric: A+Ox3, euthymic affect Discharge Data Allergies Allergy/AdvReac Type Severity Reaction Status Date / Time lisinopril AdvReac Intermediate Cough Verified 12/11/20 17:48 Consultations 12/11/20 17:23 ED Decision to Admit Stat 12/11/20 17:36 Consult Orthopedic Surgery Routine 12/11/20 18:10 Consult Cardiology Routine 12/11/20 18:18 Consult Anesthesiology Routine 12/13/20 10:15 Burn CD for patient Routine Procedures Performed Operation Date: 12/12/20 11:00 Actual Procedures p Left Open Reduction Internal Fixation Tibia/Fibula Fracture(Left) - Richard Sears DO Ordered Studies 12/12/20 FL tibia/fibula LT 2V Routine 12/12/20 14:04 US - OR guided needle placemen Routine Hospital Course (1) Fractured tibia and fibula: Pathological fracture, left tibia/fibula, in the setting of falling from a standing position This is a 55-year-old female who has a past medical history of type a aortic dissection status post repair complicated by postoperative A. 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 Xray: IMPRESSION: 1. Acute, comminuted, angulated and mildly displaced fracture of the mid to distal tibial diaphysis. 2. Acute comminuted, angulated and displaced fracture of the distal fibula. Orthopedics consulted - s/p ORIF Tibia/Fibula Fracture with Synthes minimally invasive tibial plating system and locking fibular plate. (Left) 11/15 Tdap administered in ED Discussed case with Dr. Goff who follows pt in cardiology clinic - saw patient for preop evaluation Echo - Mild concentric LVH. No regional wall motion abnormality noted. LVEF 55 to 60%. Aortic valve is trileaflet. Aortic stenosis is absent. There is no significant aortic regurg. Mild aortic root dilatation is present with surgical repair and replacement of the ascending aorta appears intact. Compared to prior study in May 2020, there is no significant interval change. PT/OT. 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 Goff Continue home medications for blood pressure, amlodipine, metoprolol, spironolactone Prescribed regimen of lasix, will hold lasix for now (4) Type 2 diabetes mellitus: last a1c 8.4 on 12/07 hold metformin and Jardiance (pt takes sparingly) lantus/novolog per protocol consult glycemic pharmacy will need to follow up as outpt (5) HTN (hypertension): BP well controlled/ on lower side continue home meds - as above monitor closely (6) DVT prophylaxis: SCDs, ASA BID (per ortho) Dispo: med/surg PCP: Dr. Redman Full Code Total Time Total Time Spent Total Time Spent (In Minutes): 40 Discharge Plan Discharge Items Patient Disposition: Home - Self-Care Reason For Visit: ACUTE L TIB FIB FRACTURE Discharge Diagnosis: Fractured tibia and fibula Activity: Per Instructions section Weightbearing: Left non-weightbearing Weightbearing Comment: as above with walker or crutches Non-emergency contact: Surgeon Call non-emergency contact if: your pain is not controlled, your temperature is above 101.5 and your wound has increased drainage Follow-up/Referrals: Gulshan Redman DO [Primary Care Provider] - Diet: Carb Consistent or DM2 Addtl Attending Provider Instructions: Please read instructions from orthopedic surgeon below, in detail. Take aspirin 81 mg twice a day for 1 month, to prevent blood clots. If you have any questions regarding your surgery or care for your leg, please call orthopedics office at . Your blood pressure has been on the lower side, recommend not to take furosemide for next 2 days and check your blood pressure at home if you are able to. If you have any questions regarding restarting your furosemide, do not hesitate to contact your primary care doctor. For pain, take Tylenol up to 3000 mg a day. For more severe pain, take oxycodone, as prescribed. Addtl Welcome Desk Agent Provider Instructions: ACTIVITY RECOMMENDATIONS: * You will be non weightbearing on your left leg. Please use a walker or crutches to help with ambulation. SPECIAL CARE INSTRUCTIONS: * Some drainage onto the dressing is normal and is no cause for alarm. * Some swelling is natural especially after walking. When resting, keep your foot elevated above the level of your heart. * Call the doctor's office at if you notice increased drainage, fever over 101 degrees F. or severe constant pain. BANDAGE: * Leave bandage/cast in place unless otherwise directed. * Keep bandage/cast dry at all times. Please call the office if you get your dressing soaked. MEDICATIONS: * Pain medication will be presrcibed for your at the time of your discharge. Please call the office for refills if needed. * You will be taking Aspirin 81mg by mouth twice daily for one month. This is your blood thinner. FOLLOW UP VISIT: If appointment is not already scheduled: Please call [facility] to make a follow-up appointment for 10-14 days from the day of your surgery at . Pending Studies at Discharge: No Stand-Alone Forms: My fromAtoB, Smoking Cessation Medications and DC Order Prescriptions: New acetaminophen 325 mg Tablet 650 mg PO Q4H PRN (Reason: pain (scale score 4-6)) Qty: 60 RF: 0 aspirin 81 mg Tablet,Delayed Release (Dr/Ec) 81 mg PO BID Qty: 60 RF: 0 oxycodone 5 mg tablet 10 mg PO Q4H PRN (Reason: pain (scale score 7-10)) Qty: 20 RF: 0 polyethylene glycol 3350 [Miralax] 17 gram Powder In Packet 17 g PO DAILY PRN (Reason: constipation) Qty: 14 RF: 0 sennosides-docusate sodium [Senokot-S] 8.6-50 mg Tablet 2 tab PO HS Qty: 10 RF: 0 Continued metformin 500 mg Tablet 500 mg PO BIDM RF: 0 amlodipine 5 mg Tablet 10 mg PO DAILY RF: 0 potassium chloride 20 mEq tablet extended release 20 meq PO DAILY RF: 0 spironolactone 25 mg Tablet 12.5 mg PO DAILY Qty: 30 RF: 2 metoprolol tartrate 50 mg Tablet 150 mg PO BID Qty: 180 RF: 2 rosuvastatin [Crestor] 10 mg Tablet 10 mg PO QAM Qty: 30 RF: 2 furosemide 40 mg tablet 40 mg PO UD Qty: 0 RF: 0 omeprazole magnesium [Prilosec OTC] 20 mg tablet,delayed release (DR/EC) 20 mg PO DAILY Qty: 30 RF: 0 Jardiance 10 mg tablet 10 mg PO DAILY RF: 0 Discharge Orders: Discharge Order (Routine); Ordered 12/15/20 Ordered By: You Silva/Other Patient Handouts: A1C, Managing Type 2 Diabetes Admission Data Admit Date/Time: 12/11/20 17:36 Attending Provider: You Villatoro Admit Provider: Tita Blue Primary Care Provider: Gulshan Redman Other Providers: Tita Blue ; Richard Sears ; Gustabo Goff ; Corie Barbour ; [facility]
== END 2020-12-15 16:14 | disposition home health service (06) | DRG 494 ==
LOC: ED 15:32 → SUATTDRO 17:36 → 3E 17:36

== ENCOUNTER 2024-07-02 00:35 | Inpatient (IN) ==
--- NOTE | 2024-07-02 01:29 | Emergency Department Note ---
Impression & Plan Chest pain, Hypertension, Dyspnea ED Provider Note ED Provider Note NAME: SAHARA BLANK AGE:59 SEX: Female : 1965 ARRIVES VIA: Private vehicle INFORMANT: Patient ED PROVIDER(s): Sheila Farnsworth DO CHIEF COMPLAINT: chest pain, shortness of breath, high blood pressure HPI: This is a 59 yo female who presents to the ER with concern for chest pain that began 2 days ago. She states initially it was central and intermittent. She states she would notice in the evening she felt slightly short of breath with that additionally. She states she does feel better sitting up compared to laying down or laying flat. She states this does feel different than the prior pain she had with her aortic dissection. No recent change in medications or diet. She states she is taking her medications as prescribed. She does follow with Dr. Goff of cardiology. She states no recent fevers, chills, or URI symptoms. She states tonight the pain began to radiate into her left shoulder and back. She states no pain down the arm or into the neck. No accompanying nausea or vomiting, she does admit to some left upper quadrant abdominal pain additionally. No recent change in urine or stools. No recent leg swelling. No recent change in activity or injuries. PAST MEDICAL HISTORY:See Below PAST SURGICAL HISTORY:See Below FAMILY HISTORY:See Below SOCIAL HISTORY:See Below HOME MEDICATIONS:See Below ALLERGIES:See Below VITALS:See Below PHYSICAL EXAMINATION: GENERAL: alert, well appearing, well nourished, no distress, non-toxic EYE EXAM: normal conjunctiva, PERRL and EOM's grossly intact OROPHARYNX: no exudate, no erythema, lips, buccal mucosa, and tongue normal and mucous membranes are moist NECK: supple, no nuchal rigidity, no adenopathy, non-tender LUNGS: Clear to auscultation. Normal chest wall mechanics, no w/r/r HEART: no murmurs, S1 normal and S2 normal, pain with palpation across her central chest, sternotomy scar well healed and well appearing ABDOMEN: abdomen soft, mild pain with palpation along the left costal margin anteriorly and into the left upper quadrant, normo-active bowel sounds, no masses, no rebound or guarding. BACK: Back is symmetrical on inspection and there is no deformity, no midline tenderness, no CVA tenderness. SKIN: no rashes, petechiae, orbruising UPPER EXTREMITIES: upper extremities are grossly normal. FROM, nml pulses b/l. No pain with palpation of the left shoulder. LOWER EXTREMITIES: No pitting edema. FROM, nml pulses b/l. NEURO EXAM: Normal sensorium, cranial nerves II-XII grossly intact, normal speech, no facial droop,nogross weakness of arms, no gross weakness of legs. Gross sensation intact. No ataxia. Vital Signs: reviewed and remarkable Differential Diagnosis: acute coronary syndrome, pericarditis, pulmonary embolus, aortic dissection, pneumonia, pneumothorax, musculoskeletal pain, shingles, GERD, GI bleed, as well as others were considered MEDICAL DECISION MAKING: This is a 59-year-old female who presents to the Emergency Department with concern for 2 days of chest pain as well as high blood pressure. Patient with significant prior history including an aortic dissection and subsequent repair. Patient noted to be hypertensive on arrival however otherwise stable. Labs drawn and sent, IV established, EKG and chest x-ray performed at bedside interpreted by me and patient monitored on telemetry. Patient given IV Tylenol, IV Pepcid, and IV morphine for pain. She was started on IV fluids additionally. Improvement of her pain did dramatically improve her blood pressure. Patient sent for CT angiography of the chest, abdomen and pelvis given her vascular history. Patient's initial troponin mildly elevated at 18. Following observation and further testing, repeat was drawn and sent and was downtrending to 14. Given some persistent pain in the chest as well as in the left upper quadrant IV Protonix and IV Toradol added additionally. Patient again reported improvement however not complete resolution. Case initially discussed via Mica text with on-call [facility] cardiology who had no additional recommendations. Patient had persistent pain and after further discussion was uncomfortable going home given prior extensive history and unclear etiology of her pain which I feel is reasonable. Case discussed with [facility] hospitalist team in the morning who was uncomfortable initially excepting the patient until vascular surgery was able to review her study given her prior history. Patient does still follow with vascular done at [facility]. I discussed the case with on-call vascular surgery who did initially review the read to compare to prior and then reviewed images once they were available. Patient's blood pressure continued to be reassuring here, she had no other new or evolving symptoms. She had no accompanying neurologic changes, and had equal pulses in bilateral upper and lower extremities throughout. Hospitalist team updated and will evaluate the patient at bedside for further inpatient management. Consultation(s): 0602: Discussed with Dr. Bonilla, cardiology, via Mica text. 07: Discussed with Dr. Lewis, [facility] hospitalist team, for additional evaluation and mgmt. 0743: Discussed with Dr. Curtis, vascular surgery at [facility]. Feels CT findings are stable. Feels patient could be admitted here for further evaluation. 0842: Update from [facility], Dr. Curtis who did review the images - no acute concerning changes. ER Treatment Provided: See below Diagnostics Interpreted By Me: -ECG: Normal sinus at 81, normal axis, normal intervals, Q waves noted in lead III and aVF, no acute ST/T wave changes -Cardiac Monitoring: An order was placed for continuous cardiac monitoring. The monitor shows a rate of 80 with normal sinus rhythm. -Laboratory studies: As stated above and show below. -Imaging studies: X-ray Chest: A single view study of the chest was reviewed and was negative for cardiomegaly, focal infiltrate, effusion, pulmonary edema, or wide mediastinum. Triage Nursing Note Reviewed Prior/Outside Records Reviewed -prior office note from cardiology from August 2023 Critical care: Critical care of 48 min performed to assess and manage high likelihood of life- threatening chest pain, involving labs and imaging performed with assessment to evaluate chest pain diagnosis with frequent reassessment. This time includes bedside time, treatment discussions with patient/family/consultants, documentation time and excludes procedure time. Past Med/Surg History Problem List (Updated 07/02/24 @ 13:17 by Kellee Mace PA-C) Lung nodule Multiple thyroid nodules Left renal atrophy Thoracic aortic dissection Hypertensive urgency Dyspnea (Acute) Hypertension (Acute) Chest pain (Acute) Fracture of left tibia and fibula Encounter for pre-operative examination Preoperative cardiovascular examination Ascending aortic dissection Acute renal insufficiency Postcardiotomy syndrome Post pericardiotomy syndrome DVT prophylaxis Cough (Acute) S/P aortic dissection repair (Acute) emergent surgical repair by Dr. Magana with replacement of the ascending aorta and hemiarch with a 20mm Gelwave graft. -03/2020 HTN (hypertension) Type 2 diabetes mellitus (Chronic) Medical History Fractured tibia and fibula Pleural effusion, bilateral Pneumonia due to COVID-19 virus Surgical History History of tonsillectomy History of appendectomy History of History of hysterectomy Hx of sinus surgery Family History Brother , 35 Sudden cardiac Sister , 65 Sudden cardiac Mother Sudden cardiac , Onset Age: 83 Social History Smoking Status: Never smoker Second Hand Exposure: No; Do You Dip or Chew Tobacco: No; Hx Alcohol Use: No Hx Substance Use: No Preferred Language: Vietnamese Communication Ability: Effective 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: No Beliefs That Will Affect Care: None marital status: Current Living Situation: Spouse and Family current occupation: Retired Other Information That Helps Us Care for You: No Feels Safe at Home: Yes Safety Concerns: Feels Safe At This Time Assistive Devices: None Allergies Allergies Allergy/AdvReac Type Severity Reaction Status Date / Time Latex, Natural Rubber Allergy Severe Difficulty Verified 07/02/24 08:02 Breathing lisinopril AdvReac Intermediate Cough Verified 07/02/24 08:02 Home Meds Home Medications Medication Instructions Recorded Confirmed amlodipine 10 mg tablet 10 mg PO QAM 01/02/22 07/02/24 metformin 1,000 mg tablet 1,000 mg PO BIDM 01/02/22 07/02/24 losartan 100 mg tablet 100 mg PO QAM 07/02/24 07/02/24 Results & Data (ED) Vital Signs Vital Signs - 24 hr 07/02/24 03:30 07/02/24 04:45 07/02/24 05:18 Pulse Rate 77 Pulse Rate [Apical] 74 77 Pulse Rate from SpO2 Sensor Pulse Rhythm [Apical] Regular Regular Pulse Strength [Apical] Normal Normal Respiratory Rate 16 17 Respiratory Effort / Characteristics Non-Labored Spontaneous Non-Labored Spontaneous Respiratory Depth Normal Normal Respiratory Pattern Regular Regular Blood Pressure Blood Pressure [Right Arm] 136/96 148/118 H Blood Pressure Mean Blood Pressure Mean [Right Arm] 109 128 Blood Pressure Position [Right Arm] Lying Lying Pulse Oximetry 98 99 Oxygen Delivery Method Room Air Room Air 07/02/24 05:30 07/02/24 06:16 07/02/24 08:00 Pulse Rate Pulse Rate [Apical] 77 73 Pulse Rate from SpO2 Sensor Pulse Rhythm [Apical] Regular Regular Pulse Strength [Apical] Normal Normal Respiratory Rate 16 16 Respiratory Effort / Characteristics Non-Labored Spontaneous Non-Labored Spontaneous Respiratory Depth Normal Normal Respiratory Pattern Regular Regular Blood Pressure 141/85 H Blood Pressure [Right Arm] 147/88 H 140/86 Blood Pressure Mean 107 Blood Pressure Mean [Right Arm] 107 104 Blood Pressure Position [Right Arm] Lying Lying Pulse Oximetry 97 97 Oxygen Delivery Method Room Air Room Air 07/02/24 08:06 07/02/24 08:18 Pulse Rate 65 69 Pulse Rate [Apical] Pulse Rate from SpO2 Sensor 66 70 Pulse Rhythm [Apical] Pulse Strength [Apical] Respiratory Rate 13 15 Respiratory Effort / Characteristics Respiratory Depth Respiratory Pattern Blood Pressure Blood Pressure [Right Arm] Blood Pressure Mean Blood Pressure Mean [Right Arm] Blood Pressure Position [Right Arm] Pulse Oximetry 96 97 Oxygen Delivery Method Laboratory Data 07/02/24 00:55 07/02/24 00:55 Lab Results 07/02/24 07/02/24 Range/Units 00:55 03:35 WBC 5.95 (4.8-10.8) K/ul RBC 4.29 (4.20-5.40) M/uL Hgb 12.4 (12.0-16.0) g/dl Hct 37.1 (37.0-47.0) % MCV 86.5 (80.0-100.0) fL MCH 28.9 (25.0-34.0) pg MCHC 33.4 (32.0-36.0) g/dL RDW Std Deviation 42.2 (36.4-46.3) fL RDW Coeff of Elaina 13.4 (11.5-14.5) % Plt Count 265 (130-400) K/uL MPV 10.4 (9.4-12.4) fL Immature Gran % (Auto) 0.3 % Neut % (Auto) 52.7 % Lymph % (Auto) 40.0 % [place] % (Auto) 5.0 % Eos % (Auto) 1.3 % Baso % (Auto) 0.7 % Neut # (Auto) 3.13 (1.40-6.50) K/uL Lymph # (Auto) 2.38 (1.20-3.40) K/uL [place] # (Auto) 0.30 (0.11-0.59) K/uL Eos # (Auto) 0.08 (0.00-0.50) K/uL Baso # (Auto) 0.04 (0.00-0.20) K/uL Immature Gran # (Auto) 0.02 (0.01-0.20) K/uL PT 9.9 (9.0-12.0) Seconds INR 0.9 (0.9-1.1) Sodium 137 (136-145) mmol/L Potassium 4.1 (3.5-5.1) mmol/L Chloride 102 (98-107) mmol/L Carbon Dioxide 27 (21-32) mmol/L Anion Gap 8 (3-11) BUN 30 H (6-23) mg/dl Creatinine 1.02 (0.6-1.2) mg/dl Est Cr Clr Drug Dosing 54.5 ml/min eGFR 63.37 BUN/Creatinine Ratio 29.4 H (10-20) Glucose 154 H (70-99(Fasting)) mg/dl Calcium 9.8 (8.6-10.3) mg/dl Magnesium 1.6 L (1.7-2.4) mg/dl Total Bilirubin 0.5 (0.2-1.0) mg/dl AST 16 (13-39) U/L ALT 11 (7-52) U/L Alkaline Phosphatase 44 (34-104) U/L Troponin I High Sens 18.5 H 14.3 H D (0-14) pg/ml Total Protein 7.7 (6.0-8.3) gm/dl Albumin 4.6 (3.4-5.0) gm/dl Globulin 3.1 (2.5-4.0) gm/dl Albumin/Globulin Ratio 1.5 (0.9-2) Lipase 30 (11-82) U/L Administered Medications Acetaminophen (Acetaminophen 325 Mg Tab) 650 mg PO Q4H PRN PRN Reason: Pain or Fever Stop: 08/01/24 09:20 Last Admin: 07/02/24 18:10 Dose: 650 mg Documented By: GD Insulin Aspart (Insulin Aspart Per Unit Charge) 0 units SC ACHS [facility] Stop: 08/01/24 11:29 Last Admin: 07/02/24 20:13 Dose: Not Given Documented By: Admin: 07/02/24 17:33 Dose: 5 units Documented By: ALEXANDER Co-signed By: JAMES Admin: 07/02/24 12:11 Dose: 9 units Documented By: RUSLAN Co-signed By: KYLAH Insulin Glargine (Lantus Per Unit Charge) 10 units SC DAILY ZOHREH Stop: 08/01/24 12:04 Last Admin: 07/02/24 12:11 Dose: 10 units Documented By: RUSLAN Co-signed By: KYLAH Metoprolol Tartrate (Metoprolol Tartrate 25 Mg Tab) 25 mg PO BID ZOHREH Stop: 08/01/24 09:59 Last Admin: 07/02/24 20:13 Dose: 25 mg Documented By: Admin: 07/02/24 09:56 Dose: 25 mg Documented By: RUSLAN Discontinued Medications Amlodipine Besylate (Amlodipine Besylate 5 Mg Tab) 10 mg PO NOW ONE Stop: 07/02/24 07:53 Last Admin: 07/02/24 08:17 Dose: 10 mg Documented By: RUSLAN Sodium Chloride (Nss) 1,000 mls @ 125 mls/hr IV .Q8H ZOHREH Stop: 07/03/24 01:14 Last Infusion: 07/02/24 08:59 Dose: Infused Documented By: Admin: 07/02/24 01:34 Dose: 125 mls/hr Documented By: ARA Acetaminophen (Ofirmev) 1,000 mg in 100 mls @ 400 mls/hr IV NOW STA Stop: 07/02/24 01:23 Last Infusion: 07/02/24 01:49 Dose: Infused Documented By: Admin: 07/02/24 01:33 Dose: 400 mls/hr Documented By: ARA Famotidine (Pepcid 20mg Iv Push) 20 mg in 5 mls @ 2.5 mls/min IV NOW STA Stop: 07/02/24 01:10 Last Admin: 07/02/24 01:33 Dose: 2.5 mls/min Documented By: ARA Acetaminophen (Ofirmev) 1,000 mg in 100 mls @ 400 mls/hr IV NOW STA Stop: 07/02/24 06:18 Last Infusion: 07/02/24 06:37 Dose: Infused Documented By: Admin: 07/02/24 06:15 Dose: 400 mls/hr Documented By: ARA Pantoprazole Sodium (Protonix) 40 mg in 10 mls @ 5 mls/min IV NOW ONE Stop: 07/02/24 06:31 Last Admin: 07/02/24 06:38 Dose: 5 mls/min Documented By: ARA Magnesium Sulfate/Dextrose (Magnesium Sulfate / D5w) 1 gm in 100 mls @ 100 mls/hr IV NOW STA Stop: 07/02/24 08:32 Last Infusion: 07/02/24 09:22 Dose: Infused Documented By: Admin: 07/02/24 08:17 Dose: 100 mls/hr Documented By: RUSLAN Insulin Glargine (Lantus Per Unit Charge) 0 units SC HS [facility]; Protocol Stop: 07/02/24 21:01 Last Admin: 07/02/24 20:13 Dose: Not Given Documented By: RAFAEL Ioversol (Optiray 320 125ml) 118 ml IV ONCE ONE Stop: 07/02/24 02:17 Last Admin: 07/02/24 02:17 Dose: 118 ml Documented By: DANA Ketorolac Tromethamine (Ketorolac Tromethamine 15 Mg/Ml Vial) 10 mg IV NOW ONE Stop: 07/02/24 06:06 Last Admin: 07/02/24 06:15 Dose: 10 mg Documented By: ARA Losartan Potassium (Losartan Potassium 50 Mg Tab) 100 mg PO NOW STA Stop: 07/02/24 07:53 Last Admin: 07/02/24 08:49 Dose: 100 mg Documented By: RUSLAN Magnesium Oxide (Magnesium Oxide 400 Mg Tab) 400 mg PO NOW STA Stop: 07/02/24 07:54 Last Admin: 07/02/24 08:17 Dose: 400 mg Documented By: RUSLAN Morphine Sulfate (Morphine Sulfate 4 Mg/Ml 1 Ml Carp\Vial) 4 mg IV NOW STA Stop: 07/02/24 01:10 Last Admin: 07/02/24 01:36 Dose: 4 mg Documented By: ARA Imaging Data Radiologist's Impression: Abdomen/Pelvis CTA 07/02/24 01:09 EXAM: CT angio abd pelvis wo/w con CLINICAL HISTORY: cp, sob, hx dissection TECHNIQUE: Contrast enhanced thin slice CT angiography scan of the abdominal aorta was performed with intravenous contrast. Angiographic images were processed, 3D MIP images were acquired for interpretation. Contiguous axial images were obtained. Reformatted coronal and sagittal images were also reviewed. If IV contrast material had not been administered, the likelihood of detecting abnormalities relevant to the patient's condition would have been substantially decreased. CT scan was performed according to ALARA (as low as reasonably achievable). COMPARISON: 13 July 2023. FINDINGS: Aortic dissection is noted extending from the descending thoracic aorta up to the left common iliac artery. No evidence of aortic rupture detected. No retroperitoneal hemorrhage is seen. Celiac axis, superior mesenteric artery, right renal artery, inferior mesenteric artery, lumbar artery and right common iliac artery are seen arising from the true lumen. Left renal artery is seen arising from the false lumen and the dissection flap is extending into the common iliac artery. Severe (95%-99%) focal stenosis is noted involving the origin of both internal iliac arteries. Severe hypoperfusion of the left renal artery is noted. Resultant atrophy with multiple cortical scars are noted involving the left kidney no corticomedullary differentiation is seen. Right kidney appears normally perfused with maintained corticomedullary differentiation. Rest of the solid abdominal organs do not reveal any significant abnormality. Bowel loops are grossly unremarkable. No evidence of ascites. Rest of the findings are unchanged. IMPRESSION: 1. Aortic dissection is noted extending from the descending thoracic aorta (upper most section of current study) up to the left common iliac artery. No evidence of aortic rupture detected. No retroperitoneal hemorrhage is seen. Stable in extent. 2. Significant hypoperfusion the false lumen is noted in the current study as compared to the previous. 3. Celiac axis, superior mesenteric artery, right renal artery, inferior mesenteric artery, lumbar artery and right common iliac artery are seen arising from the true lumen. 4. Left renal artery is seen arising from the false lumen and the dissection flap is extending into the common iliac artery. 5. Severe (95%-99%) focal stenosis is noted involving the origin of both internal iliac arteries. Relatively stable. 6. Severe hypoperfusion of the left renal artery is noted. Resultant atrophy with multiple cortical scars are noted involving the left kidney with no corticomedullary differentiation is seen. Hypoperfusion has significantly progressed as compared to the previous study. 7. Right kidney appears normally perfused with maintained corticomedullary differentiation. Rest of the findings are unchanged. Electronically signed by Naldo [id number] 03:06 AM Chest CTA 07/02/24 01:09 EXAM: CT angio chest dissec wo/w con CLINICAL HISTORY: cp, sob, hx disssection TECHNIQUE: Contiguous axial images were obtained from the neck base through the upper abdomen following intravenous administration of iodinated contrast material. Angiographic images were processed, 3D MIP images were acquired for interpretation. If IV contrast material had not been administered, the likelihood of detecting abnormalities relevant to the patient's condition would have been substantially decreased. Coronal and sagittal 3-D MIPs were likewise performed and indicated to increase the sensitivity of detecting diffuse clinically relevant pathology. CT scan was performed according to ALARA (as low as reasonably achievable). COMPARISON: 14 July 2023. FINDINGS: Sternal sutures noted. Mild cardiomegaly detected with significant dilatation of the right cardiac Chambers. Aortic dissection is noted with dissecting/intimal flap extending from arch of the aorta distal to the origin of the left subclavian. The dissection flap is seen extending into the abdominal aorta, however, it is not included in the CT angiography study. No evidence of thrombosis of the false lumen is noted. No extension of the dissection flap into the arch vessels is seen. Ascending aorta is spared of the dissection. No evidence of aortic rupture detected. Celiac axis and superior mesenteric artery are arising from the true lumen. Significant hypoperfusion of the left kidney is noted, possibility due to underlying dissection with left renal artery arising from the false lumen. Position or ground-glass densities with interstitial thickening and subsegmental atelectasis is noted involving dependent portions of bilateral lungs. 5 mm of solid nodule is noted in the right middle lobe. Few enhancing nodules are noted in both lobe of thyroid glands. Suggested ultrasound correlation. The central airways are patent. There are no pleural effusions. No pneumothorax is seen. There are coronary artery and aortic atherosclerotic calcifications. No axillary or mediastinal adenopathy is identified. No aggressive appearing osseous lesions are identified. IMPRESSION: 1. [place] type B aortic dissection as described above. No significant interval change in the extent of the dissection is noted. 2. , the false lumen appears more hypoperfused as compared to the previous study. 3. Left kidney is severely hypoperfused in the current study as compared to the previous. 4. No significant attenuation changes of the true lumen as compared to the previous study. 5. Cardiomegaly with significant dilatation of the right cardiac Chambers. No significant interval change. Suggested echocardiography correlation. 6. No significant lung parenchymal abnormality detected. 7. Stable enhancing nodules in both lobes of thyroid gland. Suggested ultrasound correlation. 8. Stable 5 mm nodule in the right middle lobe. Rest of the findings are unchanged compared to the previous CT scan. Electronically signed by Naldo Lopez 07-02-2024 03:11 AM Chest X-Ray 07/02/24 01:09 EXAM: XR chest 1V portable CLINICAL HISTORY: Chest pain, nonspecific. TECHNIQUE: An X-ray image of the chest is obtained in AP projection. COMPARISON: Chest x-ray dated 12/11/2020. FINDINGS: Pulmonary Parenchyma: Bilateral perihilar mild congestion is seen. No evidence of consolidation, collapse, or focal opacities. No pulmonary nodules are identified. No evidence of pleural effusion or pleural thickening. Heart and Mediastinum: The heart is enlarged in size. The aortic knuckle is prominent. Unchanged. No mediastinal widening or masses. No hilar or mediastinal lymphadenopathy. Bony Thorax: Midline sternotomy wire sutures are noted. Bony thorax appears intact without fractures or deformities. Soft Tissues: Soft tissues overlying the chest wall are unremarkable. IMPRESSION: 1. No acute cardiopulmonary abnormalities are identified. 2. Cardiomegaly with perihilar congestion. Unchanged. 3. No significant changes noted as compared to the previous x-ray dated 12/11/2020. Electronically signed by Giuliano Morrison 07-02-2024 02:34 AM Discharge Plan Visit Data Chief Complaint: Cardiac Assessment Stated Complaint: HIGH BLOOD PRESURE, CHEST PAIN, SOB ED Provider: Sheila Farnsworth Discharge Problem: Chest pain, Hypertension, Dyspnea Patient Disposition: Admitted As Inpatient Discharge Instructions Interventions: ED Discharge Assessment Last Done: 07/02/24 18:25 Discharge Problem: Chest pain Qualifiers: Chest pain type: unspecified Qualified Code(s): R07.9 - Chest pain, unspecified
[2024-07-02 01:33] LABS: Basophils # (auto) 0.04 K/uL (0.00-0.20); Basophils % (auto) 0.7 %; Eosinophils # (auto) 0.08 K/uL (0.00-0.50); Eosinophils % (auto) 1.3 %; Hematocrit (blood only) 37.1 % (37.0-47.0); Hemoglobin 12.4 g/dl (12.0-16.0); Immature Granulocytes # (auto) 0.02 K/uL (0.01-0.20); Immature Granulocytes % (auto) 0.3 %; Lymphocytes # (auto) 2.38 K/uL (1.20-3.40); Mean Corpuscular Hemoglobin 28.9 pg (25.0-34.0); Mean Corpuscular Hgb Conc 33.4 g/dL (32.0-36.0); Mean Corpuscular Volume 86.5 fL (80.0-100.0); Mean Platelet Volume 10.4 fL (9.4-12.4); Neutrophils # (auto) 3.13 K/uL (1.40-6.50); Neutrophils % (auto) 52.7 %; Platelet Count 265 K/uL (130-400); RDW Coefficient of Variation 13.4 % (11.5-14.5); RDW Standard Deviation 42.2 fL (36.4-46.3); Red Blood Count 4.29 M/uL (4.20-5.40); White Blood Count 5.95 K/ul (4.8-10.8)
[2024-07-02] MEDS: ACETAMINOPHEN 1,000 MG/100 ML VIAL IV STA ×2 (01:33→06:15)
[2024-07-02] MEDS: FAMOTIDINE 20MG IV PUSH 20 MG/5 ML SYR IV STA (01:33)
[2024-07-02] MEDS: SODIUM CHLORIDE 0.9% 1,000 ML IV SCH (01:34)
[2024-07-02] MEDS: MoRPHine SULFATE 4 MG/ML 1 ML CARP\\VIAL IV STA (01:36)
[2024-07-02 01:46] LABS: Albumin Level 4.6 gm/dl (3.4-5.0); BUN Creatinine Ratio 29.4 (10-20); Calcium 9.8 mg/dl (8.6-10.3); Creatinine Clr Calc Pharmacy 54.5 ml/min; Potassium 4.1 mmol/L (3.5-5.1)
[2024-07-02 01:52] LABS: Troponin I High Sensitivity 18.5 pg/ml (0-14)
[2024-07-02 01:53] LABS: Albumin Globulin Ratio 1.5 (0.9-2); Bilirubin,Total 0.5 mg/dl (0.2-1.0); Globulin 3.1 gm/dl (2.5-4.0); INR 0.9 (0.9-1.1); Prothrombin Time 9.9 Seconds (9.0-12.0); Total Protein 7.7 gm/dl (6.0-8.3)
[2024-07-02] MEDS: OPTIRAY 320 125ml IV ONE (02:17)
--- NOTE | 2024-07-02 02:34 | XRay Report ---
EXAM: XR chest 1V portable CLINICAL HISTORY: Chest pain, nonspecific. TECHNIQUE: An X-ray image of the chest is obtained in AP projection. COMPARISON: Chest x-ray dated 12/11/2020. FINDINGS: Pulmonary Parenchyma: Bilateral perihilar mild congestion is seen. No evidence of consolidation, collapse, or focal opacities. No pulmonary nodules are identified. No evidence of pleural effusion or pleural thickening. Heart and Mediastinum: The heart is enlarged in size. The aortic knuckle is prominent. Unchanged. No mediastinal widening or masses. No hilar or mediastinal lymphadenopathy. Bony Thorax: Midline sternotomy wire sutures are noted. Bony thorax appears intact without fractures or deformities. Soft Tissues: Soft tissues overlying the chest wall are unremarkable. IMPRESSION: 1. No acute cardiopulmonary abnormalities are identified. 2. Cardiomegaly with perihilar congestion. Unchanged. 3. No significant changes noted as compared to the previous x-ray dated 12/11/2020. Electronically signed by Giuliano Morrison 07-02-2024 02:34 AM
--- NOTE | 2024-07-02 03:07 | CT Scan Report ---
EXAM: CT angio abd pelvis wo/w con CLINICAL HISTORY: cp, sob, hx dissection TECHNIQUE: Contrast enhanced thin slice CT angiography scan of the abdominal aorta was performed with intravenous contrast. Angiographic images were processed, 3D MIP images were acquired for interpretation. Contiguous axial images were obtained. Reformatted coronal and sagittal images were also reviewed. If IV contrast material had not been administered, the likelihood of detecting abnormalities relevant to the patient's condition would have been substantially decreased. CT scan was performed according to ALARA (as low as reasonably achievable). COMPARISON: 13 July 2023. FINDINGS: Aortic dissection is noted extending from the descending thoracic aorta up to the left common iliac artery. No evidence of aortic rupture detected. No retroperitoneal hemorrhage is seen. Celiac axis, superior mesenteric artery, right renal artery, inferior mesenteric artery, lumbar artery and right common iliac artery are seen arising from the true lumen. Left renal artery is seen arising from the false lumen and the dissection flap is extending into the common iliac artery. Severe (95%-99%) focal stenosis is noted involving the origin of both internal iliac arteries. Severe hypoperfusion of the left renal artery is noted. Resultant atrophy with multiple cortical scars are noted involving the left kidney no corticomedullary differentiation is seen. Right kidney appears normally perfused with maintained corticomedullary differentiation. Rest of the solid abdominal organs do not reveal any significant abnormality. Bowel loops are grossly unremarkable. No evidence of ascites. Rest of the findings are unchanged. IMPRESSION: 1. Aortic dissection is noted extending from the descending thoracic aorta (upper most section of current study) up to the left common iliac artery. No evidence of aortic rupture detected. No retroperitoneal hemorrhage is seen. Stable in extent. 2. Significant hypoperfusion the false lumen is noted in the current study as compared to the previous. 3. Celiac axis, superior mesenteric artery, right renal artery, inferior mesenteric artery, lumbar artery and right common iliac artery are seen arising from the true lumen. 4. Left renal artery is seen arising from the false lumen and the dissection flap is extending into the common iliac artery. 5. Severe (95%-99%) focal stenosis is noted involving the origin of both internal iliac arteries. Relatively stable. 6. Severe hypoperfusion of the left renal artery is noted. Resultant atrophy with multiple cortical scars are noted involving the left kidney with no corticomedullary differentiation is seen. Hypoperfusion has significantly progressed as compared to the previous study. 7. Right kidney appears normally perfused with maintained corticomedullary differentiation. Rest of the findings are unchanged. Electronically signed by Naldo Lopez 07-02-2024 03:06 AM
--- NOTE | 2024-07-02 03:12 | CT Scan Report ---
EXAM: CT angio chest dissec wo/w con CLINICAL HISTORY: cp, sob, hx disssection TECHNIQUE: Contiguous axial images were obtained from the neck base through the upper abdomen following intravenous administration of iodinated contrast material. Angiographic images were processed, 3D MIP images were acquired for interpretation. If IV contrast material had not been administered, the likelihood of detecting abnormalities relevant to the patient's condition would have been substantially decreased. Coronal and sagittal 3-D MIPs were likewise performed and indicated to increase the sensitivity of detecting diffuse clinically relevant pathology. CT scan was performed according to ALARA (as low as reasonably achievable). COMPARISON: 14 July 2023. FINDINGS: Sternal sutures noted. Mild cardiomegaly detected with significant dilatation of the right cardiac Chambers. Aortic dissection is noted with dissecting/intimal flap extending from arch of the aorta distal to the origin of the left subclavian. The dissection flap is seen extending into the abdominal aorta, however, it is not included in the CT angiography study. No evidence of thrombosis of the false lumen is noted. No extension of the dissection flap into the arch vessels is seen. Ascending aorta is spared of the dissection. No evidence of aortic rupture detected. Celiac axis and superior mesenteric artery are arising from the true lumen. Significant hypoperfusion of the left kidney is noted, possibility due to underlying dissection with left renal artery arising from the false lumen. Position or ground-glass densities with interstitial thickening and subsegmental atelectasis is noted involving dependent portions of bilateral lungs. 5 mm of solid nodule is noted in the right middle lobe. Few enhancing nodules are noted in both lobe of thyroid glands. Suggested ultrasound correlation. The central airways are patent. There are no pleural effusions. No pneumothorax is seen. There are coronary artery and aortic atherosclerotic calcifications. No axillary or mediastinal adenopathy is identified. No aggressive appearing osseous lesions are identified. IMPRESSION: 1. Tad type B aortic dissection as described above. No significant interval change in the extent of the dissection is noted. 2. , the false lumen appears more hypoperfused as compared to the previous study. 3. Left kidney is severely hypoperfused in the current study as compared to the previous. 4. No significant attenuation changes of the true lumen as compared to the previous study. 5. Cardiomegaly with significant dilatation of the right cardiac Chambers. No significant interval change. Suggested echocardiography correlation. 6. No significant lung parenchymal abnormality detected. 7. Stable enhancing nodules in both lobes of thyroid gland. Suggested ultrasound correlation. 8. Stable 5 mm nodule in the right middle lobe. Rest of the findings are unchanged compared to the previous CT scan. Electronically signed by Naldo Lopez 07-02-2024 03:11 AM
[2024-07-02 04:30] LABS: Troponin I High Sensitivity 14.3 pg/ml (0-14)
[2024-07-02] MEDS: KETOROLAC TROMETHAMINE 15 MG/ML VIAL IV ONE (06:15)
[2024-07-02] MEDS: PANTOprazole 40 MG/10 ML SYR IV ONE (06:38)
[2024-07-02 07:31] LABS: Magnesium 1.6 mg/dl (1.7-2.4)
--- NOTE | 2024-07-02 07:50 | History & Physical Report ---
<Statement entered by Jhonathan Lewis, - 07/02/24 14:45> I have seen and examined the patient and have discussed the case with the advance practice provider. I have reviewed the advanced practitioner's documentation, and I agree with, and take responsibility for that plan of care. Patient seen evaluated in the ED. Denies any chest pain at this time. She does admit to having palpitations. Lungs: Clear to auscultation CV: S1-S2, irregular Personally reviewed EKG, sinus arrhythmia Suspect patient has combination of chest pain associated with anxiety and uncontrolled hypertension. And patient is feeling her palpitations associated with her sinus arrhythmia. Reviewing outside EMR, discussion with specialists and patient suspect she is somewhat noncompliant with her antihypertensive medications. Patient still somewhat hypertensive after receiving her usual amlodipine and losartan. Will add metoprolol for blood pressure control as well as also to help her with her sensation of palpitations. Discussed with patient about treating her anxiety. I discussed with her initiating BuSpar. She respectfully declined and did not want to take any medications for managing her anxiety. Explained to the patient that I felt her anxiety contributing to her chest pain and her uncontrolled hypertension and is causing a cycle of symptoms. Also she is aware that tight blood pressure control was critical to management of her aortic vascular disease. Communication with cardiology. Agrees with the addition of metoprolol I spent a total of 22 minutes coordinating, documenting, and providing care for this patient excluding time spent by another provider/QHP. Date of Service July 02, 2024 Assessment & Plan (1) Chest pain: (2) Hypertensive urgency: (3) Thoracic aortic dissection: (4) Left renal atrophy: Plan: Alma Rosa Rogel is a medically complex 59y/o F with PMHx significant for type A thoracic aortic dissection s/p emergent surgical repair with replacement of the ascending aorta and hemiarch utilizing a 28mm Gelweave graft in March 2020 with postoperative course complicated by postpericardiotomy syndrome with pericardial and pleural effusions including recurrent left pleural effusion requiring thoracentesis in May 2020, residual aortic dissection from aortic arch down to LCIA which has been present on prior imaging since March 2020, 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 Acute type A thoracic aortic dissection s/p emergent surgery with replacement of ascending and hemiarch with a 28mm Gelweave graft and resuspension of the aortic valve in March 2020 with postoperative course complicated by postpericardioto my syndrome with pericardial and pleural effusions. Also then with a recurrent left-sided pleural effusion requiring thoracentesis in May 2020. Known residual aortic dissection from aortic arch down to L VERNELL which has been present on prior imaging since March 2020. Updated chest CTA and abdomen/pelvis CTA imaging studies performed in the ED revealed no significant interval change in the extent of her residual aortic dissection when compared to prior imaging completed in June 2023. There is no evidence of aortic rupture or retroperitoneal hemorrhage. Has known atrophy of the left kidney ISO underlying hypoperfusion of the left renal artery however this appears to have significantly progressed when compared to her prior imaging completed in June 2023. ED provider, Dr. Farnsworth, discussed the above findings with the on-call vascular surgeon at [facility], Dr. Curtis, to determine if it would be appropriate to have the patient admitted here. Dr. Curtis feels her CTA findings are currently stable and that the patient can be admitted here for close monitoring and management of her HTN urgency. Chest pain resolved at time of admission s/p PRN analgesia provided in the ED. BP slowly improving with initiation of po Lopressor in addition to her home antihypertensives. Remains hemodynamically stable otherwise. Appreciate cardiology consult for further recommendations. Will cycle BP [id number] for now - communicated with staff interpreter. Goal SBP<140 for now. Renal function stable per review of labs however will need to closely monitor this ISO severe left renal hypoperfusion. Check fasting lipid panel in AM. (5) Type 2 diabetes mellitus: Plan: Poorly controlled. Hgb A1c 7.8% as of 11 months ago, will repeat in AM. Hold home metformin. SSI regimen while inpatient. Continue routine BSG checks and CC/HH/low Na+ diet. (6) Multiple thyroid nodules: Plan: Seen on prior chest CTA imaging in August 2023 per outpatient chart review. Appear stable on repeat chest CTA done today. Suggest outpatient thyroid US for further evaluation. Will check TSH in AM. (7) Lung nodule: Plan: 2-3mm solid nodules in YOLANDA and 7mm nodule in RUL node on prior chest CTA from August 2020. RUL nodule unchanged on repeat chest CTA done in August 2023 which also noted scattered sub 2mm pulmonary nodules. Appear stable on repeat chest CTA done today. DVT Prophylaxis: SCDs/TEDs for now ISO known aortic dissection. Code Status: FULL CODE PCP: MARKO Marie Disposition: Admit to PCU for inpatient monitoring and management. If BP were to worsen, would strongly benefit from ICU placement for closer monitoring. Patient seen in collaboration with Dr. Lewis. Please see addendum. I spent a total of 80 minutes coordinating, documenting, and providing care for this patient excluding time spent in the performance of separately billed services or time spent by another provider/QHP. This included personally reviewing all current laboratories and imaging studies, medical reconciliation, outpatient chart review and discussion with specialists. This chart was completed in part utilizing Speech Voice Recognition Software. Grammatical errors, random word insertions, pronoun errors, and incomplete sentences are an occasional consequence of this system due to software limitations, ambient noise, and hardware issues. Any formal questions or concerns about the content, text, or information contained within the body of this dictation should be directly addressed to the provider for clarification. History of Present Illness Chief Complaint: Chest pain and high blood pressure Primary Care Provider: MARKO Marie Alma Rosa Rogel is a medically complex 59y/o F with PMHx significant for type A thoracic aortic dissection s/p emergent surgical repair with replacement of the ascending aorta and hemiarch utilizing a 28mm Gelweave graft in March 2020 with postoperative course complicated by postpericardiotomy syndrome with pericardial and pleural effusions including recurrent left pleural effusion requiring thoracentesis in May 2020, residual aortic dissection from aortic arch down to LCIA which has been present on prior imaging since March 2020, 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 History obtained from the patient, discussion with ED provider and associated chart review. Prominent vascular history including an acute type A thoracic aortic dissection s/p emergent surgery with replacement of ascending and hemiarch with a 28mm Gelweave graft and resuspension of the aortic valve in March 2020 with postoperative course complicated by postpericardiotomy syndrome with pericardial and pleural effusions. Also then with a recurrent left-sided pleural effusion requiring thoracentesis in May 2020. Patient came to the ED for evaluation as she has recently been experiencing substernal, achy chest pain with coinciding SOB and palpitations over the past 2 days. Now reporting resolution of these symptoms at the time of our conversation ; however of note, she described the pain as feeling different than what she experienced during her dissection back in March 2020. Denies any sudden, severe stomach pain. Also denies any loss of consciousness, visual disturbances or "tearing sensation" in her back. BP was drastically elevated at 219/116 upon her arrival to the ED which has since improved at the time of our conversation to 141/85 following resolution of her chest pain with PRN analgesia that was previously administered. Patient endorses feeling quite anxious with being admitted to hospital given her prior complications and prolonged hospital stays, however, she expresses understanding of her underlying condition and the crucial need for close monitoring therefore she is agreeable with staying. Follows with Dr. Goff of [facility] on an outpatient basis and most recently saw Dr. Sohail Akers of [facility] at [facility] in September 2023. Updated chest CTA and abdomen/pelvis CTA imaging studies performed in the ED revealed no significant interval change in the extent of her residual aortic dissection when compared to prior imaging completed in June 2023. There is no evidence of aortic rupture or retroperitoneal hemorrhage. Has known atrophy of the left kidney ISO underlying hypoperfusion of the left renal artery however this appears to have significantly progressed when compared to her prior imaging completed in June 2023. ED provider, Dr. Farnsworth, discussed these findings with the on-call vascular surgeon at [facility], Dr. Curtis, to determine if it would be appropriate to have the patient admitted here. Dr. Curtis feels her CTA findings are currently stable and that the patient can be admitted here for close monitoring and management of her hypertensive urgency. No prior cigarette or alcohol use. Takes losartan 100mg daily and amlodipine 10mg daily. Reports checking her BP at least once a day and that it typically trends around the 140s/70s-80s. Endorses experiencing a cough with GUY inhibitor use. Fluent in both [place] and [place] Citizen. Was born and lived in [place] previously. Has been living in the [place] area for over 20 years. Has 2 children. Allergies Allergy/AdvReac Type Severity Reaction Status Date / Time Latex, Natural Rubber Allergy Severe Difficulty Verified 07/02/24 08:02 Breathing lisinopril AdvReac Intermediate Cough Verified 07/02/24 08:02 Home Medications Medication Instructions Recorded Confirmed Type amlodipine 10 mg tablet 10 mg PO QAM 01/02/22 07/02/24 History metformin 1,000 mg tablet 1,000 mg PO BIDM 01/02/22 07/02/24 History losartan 100 mg tablet 100 mg PO QAM 07/02/24 07/02/24 History Past Med/Surg History Problem List (Updated 07/02/24 @ 13:17 by Kellee Mace PA-C) Lung nodule Multiple thyroid nodules Left renal atrophy Thoracic aortic dissection Hypertensive urgency Dyspnea (Acute) Hypertension (Acute) Chest pain (Acute) Fracture of left tibia and fibula Encounter for pre-operative examination Preoperative cardiovascular examination Ascending aortic dissection Acute renal insufficiency Postcardiotomy syndrome Post pericardiotomy syndrome DVT prophylaxis Cough (Acute) S/P aortic dissection repair (Acute) emergent surgical repair by Dr. Magana with replacement of the ascending aorta and hemiarch with a 20mm Gelwave graft. -03/2020 HTN (hypertension) Type 2 diabetes mellitus (Chronic) Medical History Fractured tibia and fibula Pleural effusion, bilateral Pneumonia due to COVID-19 virus Surgical History History of tonsillectomy History of appendectomy History of History of hysterectomy Hx of sinus surgery Family History Brother , 35 Sudden cardiac Sister , 65 Sudden cardiac Mother Sudden cardiac , Onset Age: 83 Social History Smoking Status: Never smoker Second Hand Exposure: No; Do You Dip or Chew Tobacco: No; Hx Alcohol Use: No Hx Substance Use: No Preferred Language: [place]ican Communication Ability: Effective Construction Estimator Required: No Beliefs That Will Affect Care: None marital status: Current Living Situation: Spouse and Family current occupation: Retired Other Information That Helps Us Care for You: No Feels Safe at Home: Yes Safety Concerns: Feels Safe At This Time Assistive Devices: None Review of Systems Review of Systems: At least ten systems reviewed and negative, except as noted in the HPI. Physical Exam Physical Exam: General: Middle-aged F. NAD. Sitting up in bed. Tearful at times 2/2 hospital- related anxiety but very pleasant. A&Ox4. HEENT: Normocephalic, atraumatic. Conjunctivae normal. External ear and nose normal, oropharynx normal. Respiratory: Normal respiratory effort, lungs clear to auscultation bilaterally. No accessory muscle use, on RA and saturating well. Cardiovascular: Regular rate and rhythm, normal peripheral pules. + loud S1 and S2 2/2 known aortic dissection. + sternotomy scar. Abdomen/GI: Normal bowel sounds, soft, nondistended, nontender to palpation in all quadrants. Extremities/MSK: No cyanosis or clubbing, extremities motor strength intact, moves all extremities. No BLE edema. Neurologic: No overt focal deficits, CN's II-XI not formally tested but appear grossly intact bilaterally. Results & Data Results & Data Vital Signs (Past 12 Hours) Vital Signs Temp Pulse Pulse Resp BP BP Pulse Ox 07/02/24 06:16 73 16 140/86 97 07/02/24 05:30 77 16 147/88 H 97 07/02/24 05:18 77 17 148/118 H 99 07/02/24 04:45 77 07/02/24 03:30 74 16 136/96 98 07/02/24 03:00 73 17 153/103 H 96 07/02/24 02:30 78 17 162/108 H 96 07/02/24 01:38 88 17 135/102 H 96 07/02/24 01:22 79 17 168/102 H 96 07/02/24 00:54 81 07/02/24 00:41 36.7 C 92 H 18 219/116 H 96 O2 Del Method 07/02/24 06:16 Room Air 07/02/24 05:30 Room Air 07/02/24 05:18 Room Air 07/02/24 04:45 07/02/24 03:30 Room Air 07/02/24 03:00 Room Air 07/02/24 02:30 Room Air 07/02/24 01:38 Room Air 07/02/24 01:22 Room Air 07/02/24 00:54 07/02/24 00:41 Room Air Laboratory Results Short CBC 07/02/24 Range/Units 00:55 WBC 5.95 (4.8-10.8) K/ul Hgb 12.4 (12.0-16.0) g/dl Hct 37.1 (37.0-47.0) % Plt Count 265 (130-400) K/uL BMP 07/02/24 00:55 Sodium 137 Potassium 4.1 Chloride 102 Carbon Dioxide 27 BUN 30 H Creatinine 1.02 Glucose 154 H Calcium 9.8 Liver Function 07/02/24 Range/Units 00:55 Total Bilirubin 0.5 (0.2-1.0) mg/dl AST 16 (13-39) U/L ALT 11 (7-52) U/L Alkaline Phosphatase 44 (34-104) U/L Albumin 4.6 (3.4-5.0) gm/dl Diagnostic Findings Abdomen/Pelvis CTA 07/02/24 01:09 EXAM: CT angio abd pelvis wo/w con CLINICAL HISTORY: cp, sob, hx dissection TECHNIQUE: Contrast enhanced thin slice CT angiography scan of the abdominal aorta was performed with intravenous contrast. Angiographic images were processed, 3D MIP images were acquired for interpretation. Contiguous axial images were obtained. Reformatted coronal and sagittal images were also reviewed. If IV contrast material had not been administered, the likelihood of detecting abnormalities relevant to the patient's condition would have been substantially decreased. CT scan was performed according to ALARA (as low as reasonably achievable). COMPARISON: 13 July 2023. FINDINGS: Aortic dissection is noted extending from the descending thoracic aorta up to the left common iliac artery. No evidence of aortic rupture detected. No retroperitoneal hemorrhage is seen. Celiac axis, superior mesenteric artery, right renal artery, inferior mesenteric artery, lumbar artery and right common iliac artery are seen arising from the true lumen. Left renal artery is seen arising from the false lumen and the dissection flap is extending into the common iliac artery. Severe (95%-99%) focal stenosis is noted involving the origin of both internal iliac arteries. Severe hypoperfusion of the left renal artery is noted. Resultant atrophy with multiple cortical scars are noted involving the left kidney no corticomedullary differentiation is seen. Right kidney appears normally perfused with maintained corticomedullary differentiation. Rest of the solid abdominal organs do not reveal any significant abnormality. Bowel loops are grossly unremarkable. No evidence of ascites. Rest of the findings are unchanged. IMPRESSION: 1. Aortic dissection is noted extending from the descending thoracic aorta (upper most section of current study) up to the left common iliac artery. No evidence of aortic rupture detected. No retroperitoneal hemorrhage is seen. Stable in extent. 2. Significant hypoperfusion the false lumen is noted in the current study as compared to the previous. 3. Celiac axis, superior mesenteric artery, right renal artery, inferior mesenteric artery, lumbar artery and right common iliac artery are seen arising from the true lumen. 4. Left renal artery is seen arising from the false lumen and the dissection flap is extending into the common iliac artery. 5. Severe (95%-99%) focal stenosis is noted involving the origin of both internal iliac arteries. Relatively stable. 6. Severe hypoperfusion of the left renal artery is noted. Resultant atrophy with multiple cortical scars are noted involving the left kidney with no corticomedullary differentiation is seen. Hypoperfusion has significantly progressed as compared to the previous study. 7. Right kidney appears normally perfused with maintained corticomedullary differentiation. Rest of the findings are unchanged. Electronically signed by Naldo Lopez 07-02-2024 03:06 AM Chest CTA 07/02/24 01:09 EXAM: CT angio chest dissec wo/w con CLINICAL HISTORY: cp, sob, hx disssection TECHNIQUE: Contiguous axial images were obtained from the neck base through the upper abdomen following intravenous administration of iodinated contrast material. Angiographic images were processed, 3D MIP images were acquired for interpretation. If IV contrast material had not been administered, the likelihood of detecting abnormalities relevant to the patient's condition would have been substantially decreased. Coronal and sagittal 3-D MIPs were likewise performed and indicated to increase the sensitivity of detecting diffuse clinically relevant pathology. CT scan was performed according to ALARA (as low as reasonably achievable). COMPARISON: 14 July 2023. FINDINGS: Sternal sutures noted. Mild cardiomegaly detected with significant dilatation of the right cardiac Chambers. Aortic dissection is noted with dissecting/intimal flap extending from arch of the aorta distal to the origin of the left subclavian. The dissection flap is seen extending into the abdominal aorta, however, it is not included in the CT angiography study. No evidence of thrombosis of the false lumen is noted. No extension of the dissection flap into the arch vessels is seen. Ascending aorta is spared of the dissection. No evidence of aortic rupture detected. Celiac axis and superior mesenteric artery are arising from the true lumen. Significant hypoperfusion of the left kidney is noted, possibility due to underlying dissection with left renal artery arising from the false lumen. Position or ground-glass densities with interstitial thickening and subsegmental atelectasis is noted involving dependent portions of bilateral lungs. 5 mm of solid nodule is noted in the right middle lobe. Few enhancing nodules are noted in both lobe of thyroid glands. Suggested ultrasound correlation. The central airways are patent. There are no pleural effusions. No pneumothorax is seen. There are coronary artery and aortic atherosclerotic calcifications. No axillary or mediastinal adenopathy is identified. No aggressive appearing osseous lesions are identified. IMPRESSION: 1. Tad type B aortic dissection as described above. No significant interval change in the extent of the dissection is noted. 2. , the false lumen appears more hypoperfused as compared to the previous study. 3. Left kidney is severely hypoperfused in the current study as compared to the previous. 4. No significant attenuation changes of the true lumen as compared to the previous study. 5. Cardiomegaly with significant dilatation of the right cardiac Chambers. No significant interval change. Suggested echocardiography correlation. 6. No significant lung parenchymal abnormality detected. 7. Stable enhancing nodules in both lobes of thyroid gland. Suggested ultrasound correlation. 8. Stable 5 mm nodule in the right middle lobe. Rest of the findings are unchanged compared to the previous CT scan. Electronically signed by Naldo Lopez 07-02-2024 03:11 AM Chest X-Ray 07/02/24 01:09 EXAM: XR chest 1V portable CLINICAL HISTORY: Chest pain, nonspecific. TECHNIQUE: An X-ray image of the chest is obtained in AP projection. COMPARISON: Chest x-ray dated 12/11/2020. FINDINGS: Pulmonary Parenchyma: Bilateral perihilar mild congestion is seen. No evidence of consolidation, collapse, or focal opacities. No pulmonary nodules are identified. No evidence of pleural effusion or pleural thickening. Heart and Mediastinum: The heart is enlarged in size. The aortic knuckle is prominent. Unchanged. No mediastinal widening or masses. No hilar or mediastinal lymphadenopathy. Bony Thorax: Midline sternotomy wire sutures are noted. Bony thorax appears intact without fractures or deformities. Soft Tissues: Soft tissues overlying the chest wall are unremarkable. IMPRESSION: 1. No acute cardiopulmonary abnormalities are identified. 2. Cardiomegaly with perihilar congestion. Unchanged. 3. No significant changes noted as compared to the previous x-ray dated 12/11/2020. Electronically signed by Giuliano Morrison 07-02-2024 02:34 AM Medications Administered Discontinued Medications Sodium Chloride (Nss) 1,000 mls @ 125 mls/hr IV .Q8H ZOHREH Stop: 07/03/24 01:14 Last Admin: 07/02/24 01:34 Dose: 125 mls/hr Documented By: ARA Acetaminophen (Ofirmev) 1,000 mg in 100 mls @ 400 mls/hr IV NOW STA Stop: 07/02/24 01:23 Last Infusion: 07/02/24 01:49 Dose: Infused Documented By: Admin: 07/02/24 01:33 Dose: 400 mls/hr Documented By: ARA Famotidine (Pepcid 20mg Iv Push) 20 mg in 5 mls @ 2.5 mls/min IV NOW STA Stop: 07/02/24 01:10 Last Admin: 07/02/24 01:33 Dose: 2.5 mls/min Documented By: ARA Acetaminophen (Ofirmev) 1,000 mg in 100 mls @ 400 mls/hr IV NOW STA Stop: 07/02/24 06:18 Last Infusion: 07/02/24 06:37 Dose: Infused Documented By: Admin: 07/02/24 06:15 Dose: 400 mls/hr Documented By: ARA Pantoprazole Sodium (Protonix) 40 mg in 10 mls @ 5 mls/min IV NOW ONE Stop: 07/02/24 06:31 Last Admin: 07/02/24 06:38 Dose: 5 mls/min Documented By: ARA Ioversol (Optiray 320 125ml) 118 ml IV ONCE ONE Stop: 07/02/24 02:17 Last Admin: 07/02/24 02:17 Dose: 118 ml Documented By: DANA Ketorolac Tromethamine (Ketorolac Tromethamine 15 Mg/Ml Vial) 10 mg IV NOW ONE Stop: 07/02/24 06:06 Last Admin: 07/02/24 06:15 Dose: 10 mg Documented By: ARA Morphine Sulfate (Morphine Sulfate 4 Mg/Ml 1 Ml Carp\\Vial) 4 mg IV NOW STA Stop: 07/02/24 01:10 Last Admin: 07/02/24 01:36 Dose: 4 mg Documented By: ARA Code Status & VTE Plan Code Status FULL CODE (1) Chest pain Chest pain type: unspecified Qualified Code(s): R07.9 - Chest pain, unspecified (3) Thoracic aortic dissection Thoracic aorta location: descending thoracic aorta Qualified Code(s): I71.012 - Dissection of descending thoracic aorta (5) Type 2 diabetes mellitus Diabetes mellitus keno terminal operator insulin use: unspecified keno terminal operator insulin use status Diabetes mellitus complication status: with other specified complication Qualified Code(s): E11.69 - Type 2 diabetes mellitus with other specified complication
[2024-07-02] MEDS: MAGNESIUM OXIDE 400 MG TAB PO STA (08:17)
[2024-07-02] MEDS: amLODIPine BESYLATE 5 MG TAB PO ONE (08:17)
[2024-07-02] MEDS: MAGNESIUM SULFATE / D5W 1 GM/100 ML BAG IV STA (08:17)
[2024-07-02] MEDS: LOSARTAN POTASSIUM 50 MG TAB PO STA (08:49)
--- NOTE | 2024-07-02 09:05 | Electrocardiogram Report ---
Test Reason : Blood Pressure : */* mmHG Vent. Rate : 81 BPM Atrial Rate : 81 BPM P-R Int : 174 ms QRS Dur : 82 ms QT Int : 376 ms P-R-T Axes : 47 -14 89 degrees QTcB Int : 436 ms Sinus rhythm with marked sinus arrhythmia possible Inferior infarct (cited on or before 23-May-2020) Abnormal ECG Confirmed by Charly Ocasio ([id number]) on 07/02/2024 9:04:57 AM Referred By: REFERRED SELF Confirmed By: Charly Ocasio
[2024-07-02] MEDS ORDERED: CARBOHYDRATES FOR HYPOGLYCEMIA PO PRN (09:21)
[2024-07-02] MEDS ORDERED: GLUCOSE 40% GEL 15 GM TUBE PO PRN (09:21)
[2024-07-02] MEDS ORDERED: GLUCAGON FOR INJ 1 MG VIAL SQ PRN (09:21)
[2024-07-02] MEDS ORDERED: GLUCOSE 10 TAB/TUBE PO PRN (09:21)
[2024-07-02] MEDS ORDERED: MAGNESIUM HYDROXIDE SUSP 30 ML UDC PO PRN (09:21)
[2024-07-02] MEDS ORDERED: PHARMACY GLYCEMIC MGMT CONSULT PRN (09:21)
[2024-07-02] MEDS ORDERED: LABETALOL HCL IV 5 MG/ML 20ML IV PRN (09:21)
[2024-07-02] MEDS ORDERED: POLYETHYLENE (MIRALAX) 17 GM PACK PO PRN (09:21)
[2024-07-02] MEDS ORDERED: DEXTROSE 50% 50 ML SYRINGE IV PRN (09:21)
[2024-07-02] MEDS ORDERED: ONDANSETRON INJ 2 MG/ML 2 ML VIAL IV PRN (09:21)
[2024-07-02] MEDS: METOPROLOL TARTRATE 25 MG TAB PO SCH (09:56)
[2024-07-02] MEDS: INSULIN ASPART PER UNIT CHARGE SC SCH (12:11)
[2024-07-02] MEDS: LANTUS PER UNIT CHARGE SC SCH ×2 (12:11→20:13)
--- NOTE | 2024-07-02 13:24 | Cardiology Consultation ---
<Statement entered by Holli Bonilla DO - 07/02/24 20:47> I have reviewed the advanced practitioner's documentation and agree with the plan of care. I accept the responsibility for the associated risk. Pt seen in cardiology consultation due to hypertensive urgency. Pt does not take her medications as prescribed recommend losartan with the norvasc daily and agree with adding short acting metoprolol but most likely transition it to toprol upon discharge which is hopefully tomorrow Date of Consultation July 02, 2024 Assessment & Plan (1) Hypertensive urgency: (2) Chest pain: Plan - Patient presented with profoundly elevated blood pressures - Heart rate currently well-controlled - Review of outpatient records indicate hesitancy to take medications and previously self discontinued beta-blockers with intermittent noncompliance with antihypertensive regimen - Blood pressure has improved since presentation with administration of antihypertensives - Recommend continuing amlodipine and losartan with addition of low-dose beta-nighat - Encourage compliance with taking her antihypertensives on a regular basis to avoid accelerated hypertension which can also cause the symptoms that she presented with - If she tolerates low-dose beta-nighat can transition to long acting and discharged on Toprol daily uptitrate as necessary - Magnesium noted to be low has been repleted could consider adding magnesium supplementation if necessary at discharge also, however unclear if the patient will continue this as she has been hesitant to take " too many" medications in the past - Case was reviewed with the attending service who agreed with plan Case discussed with Dr. Bonilla. Please see attestation for additional recommendations. I spent a total of 40 minutes on the date of service in preparation, delivery, and documentation of the care provided to the patient excluding any time spent in the performance of separately billed services. MARKO Barbosa Department of Cardiology, [facility] This chart was completed in part utilizing Speech Voice Recognition Software. Grammatical errors, random word insertions, pronoun errors, and incomplete sentences are an occasional consequence of this system due to software limita tions, ambient noise, and hardware issues. Any formal questions or concerns about the content, text, or information contained within the body of this dictation should be directly addressed to the provider for clarification. History of Present Illness Reason for Consultation: Chest pain, hypertensive urgency Requesting Physician: Hospitalist Attending Physician: Jhonathan Lewis DO History of Present Illness 59-year-old female seen in consultation today in regard to chest discomfort with hypertensive urgency. Had been reporting substernal chest discomfort with shortness of breath and palpitations over the last 2 days. She has a known past medical history of type a thoracic aortic dissection status per surgical repair 03/2020, left renal cortical atrophy, uncontrolled hypertension, hyperlipidemia, DM II, GERD, lumbar disc disease, and migraines. Initially reported does not take medications at home but then advised that she does occasionally take losartan and amlodipine but not daily. She reported that they changed her medication recently but it is somewhat unclear if she was to be continuing both on a regular basis. Allergies Allergy/AdvReac Type Severity Reaction Status Date / Time Latex, Natural Rubber Allergy Severe Difficulty Verified 07/02/24 08:02 Breathing lisinopril AdvReac Intermediate Cough Verified 07/02/24 08:02 Home Medications Medication Instructions Recorded Confirmed Type amlodipine 10 mg tablet 10 mg PO QAM 01/02/22 07/02/24 History metformin 1,000 mg tablet 1,000 mg PO BIDM 01/02/22 07/02/24 History losartan 100 mg tablet 100 mg PO QAM 07/02/24 07/02/24 History Patient History Medical History Fractured tibia and fibula Pleural effusion, bilateral Pneumonia due to COVID-19 virus Surgical History History of tonsillectomy History of appendectomy History of History of hysterectomy Hx of sinus surgery Family History Brother , 35 Sudden cardiac Sister , 65 Sudden cardiac Mother Sudden cardiac , Onset Age: 83 Social History Smoking Status: Never smoker Second Hand Exposure: No; Do You Dip or Chew Tobacco: No; Hx Alcohol Use: No Hx Substance Use: No Preferred Language: Pashto Communication Ability: Effective Business Continuity 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: No Beliefs That Will Affect Care: None marital status: Current Living Situation: Spouse and Family current occupation: Retired Other Information That Helps Us Care for You: No Feels Safe at Home: Yes Safety Concerns: Feels Safe At This Time Assistive Devices: None Review of Systems Constitutional: no fever and no chills Respiratory: + dyspnea on exertion; no cough Cardiovascular: + chest pain and + palpitations; no lachelle a Gastrointestinal: no abdominal pain, no nausea and no vomiting Physical Exam Constitutional: well developed and well nourished; no acute distress Eyes: PERRL, conjunctivae normal, anicteric sclerae Neck: trachea midline, no thyromegaly Respiratory: normal respiratory effort, lungs clear to auscultation Cardiovascular: RRR, no murmur, no edema Gastrointestinal (Abdomen): normal bowel sounds, soft, nontender, no hepatosplenomegaly Psychiatric: A+Ox3, euthymic affect Results & Data Vital Signs (Past 12 Hours) Vital Signs Pulse Pulse Resp BP BP Pulse Ox O2 Del Method 07/02/24 12:03 67 20 07/02/24 12:01 141/85 H 98 Room Air 07/02/24 11:45 66 16 07/02/24 11:30 161/90 H 07/02/24 11:30 68 21 07/02/24 11:03 67 23 07/02/24 11:00 154/98 H 07/02/24 10:42 63 15 07/02/24 10:30 172/102 H 07/02/24 10:27 67 19 07/02/24 10:00 73 13 07/02/24 10:00 165/112 H 07/02/24 09:57 79 17 07/02/24 09:45 180/110 H 07/02/24 09:21 77 13 07/02/24 09:12 78 19 07/02/24 08:51 79 15 07/02/24 08:30 170/89 H 07/02/24 08:18 69 15 97 07/02/24 08:06 65 13 96 07/02/24 08:00 141/85 H 07/02/24 06:16 73 16 140/86 97 Room Air 07/02/24 05:30 77 16 147/88 H 97 Room Air 07/02/24 05:18 77 17 148/118 H 99 Room Air 07/02/24 04:45 77 07/02/24 03:30 74 16 136/96 98 Room Air 07/02/24 03:00 73 17 153/103 H 96 Room Air 07/02/24 02:30 78 17 162/108 H 96 Room Air 07/02/24 01:38 88 17 135/102 H 96 Room Air 07/02/24 01:22 79 17 168/102 H 96 Room Air Laboratory Results Cardiac Enzymes 07/02/24 07/02/24 07/02/24 Range/Units 00:55 03:35 08:34 AST 16 (13-39) U/L Troponin I High Sens 18.5 H 14.3 H D 14.0 (0-14) pg/ml Coagulation 07/02/24 Range/Units 00:55 PT 9.9 (9.0-12.0) Seconds CBC 07/02/24 Range/Units 00:55 WBC 5.95 (4.8-10.8) K/ul RBC 4.29 (4.20-5.40) M/uL Hgb 12.4 (12.0-16.0) g/dl Hct 37.1 (37.0-47.0) % Plt Count 265 (130-400) K/uL Neut # (Auto) 3.13 (1.40-6.50) K/uL Lymph # (Auto) 2.38 (1.20-3.40) K/uL [place] # (Auto) 0.30 (0.11-0.59) K/uL Eos # (Auto) 0.08 (0.00-0.50) K/uL Baso # (Auto) 0.04 (0.00-0.20) K/uL Comprehensive Metabolic Panel 07/02/24 Range/Units 00:55 Sodium 137 (136-145) mmol/L Potassium 4.1 (3.5-5.1) mmol/L Chloride 102 (98-107) mmol/L Carbon Dioxide 27 (21-32) mmol/L BUN 30 H (6-23) mg/dl Creatinine 1.02 (0.6-1.2) mg/dl Glucose 154 H (70-99(Fasting)) mg/dl Calcium 9.8 (8.6-10.3) mg/dl AST 16 (13-39) U/L ALT 11 (7-52) U/L Alkaline Phosphatase 44 (34-104) U/L Total Protein 7.7 (6.0-8.3) gm/dl Albumin 4.6 (3.4-5.0) gm/dl Intake and Output 07/01/24 07/02/24 07/02/24 22:59 06:59 14:59 Intake Total 200 / 200 1100 / 1100 Balance 200 / 200 1100 / 1100 Intake: IV 200 / 200 1100 / 1100 Acetaminophen 1,000 mg In 100 200 / 200 ml @ 400 mls/hr IV NOW STA Rx#: [id number] Magnesium Sulfate / D5w 1 gm In 100 / 100 100 ml @ 100 mls/hr IV NOW STA Rx#:[id number] Sodium Chloride 0.9% 1,000 ml @ 1000 / 1000 125 mls/hr IV .Q8H [facility] Rx#: [id number] Other: Weight 70.2 kg 70.2 kg Weight Measurement Method Chair Scale Built in [facility] Patient Weight 07/03/24 06:59 Weight 70.2 kg Diagnostic Findings Laboratory Results WBC 5.95 K/ul (4.8-10.8) 07/02/24 00:55 RBC 4.29 M/uL (4.20-5.40) 07/02/24 00:55 Hgb 12.4 g/dl (12.0-16.0) 07/02/24 00:55 Hct 37.1 % (37.0-47.0) 07/02/24 00:55 MCV 86.5 fL (80.0-100.0) 07/02/24 00:55 MCH 28.9 pg (25.0-34.0) 07/02/24 00:55 MCHC 33.4 g/dL (32.0-36.0) 07/02/24 00:55 RDW Std Deviation 42.2 fL (36.4-46.3) 07/02/24 00:55 RDW Coeff of Elaina 13.4 % (11.5-14.5) 07/02/24 00:55 Plt Count 265 K/uL (130-400) 07/02/24 00:55 MPV 10.4 fL (9.4-12.4) 07/02/24 00:55 Immature Gran % (Auto) 0.3 % 07/02/24 00:55 Neut % (Auto) 52.7 % 07/02/24 00:55 Lymph % (Auto) 40.0 % 07/02/24 00:55 [place] % (Auto) 5.0 % 07/02/24 00:55 Eos % (Auto) 1.3 % 07/02/24 00:55 Baso % (Auto) 0.7 % 07/02/24 00:55 Neut # (Auto) 3.13 K/uL (1.40-6.50) 07/02/24 00:55 Lymph # (Auto) 2.38 K/uL (1.20-3.40) 07/02/24 00:55 [place] # (Auto) 0.30 K/uL (0.11-0.59) 07/02/24 00:55 Eos # (Auto) 0.08 K/uL (0.00-0.50) 07/02/24 00:55 Baso # (Auto) 0.04 K/uL (0.00-0.20) 07/02/24 00:55 Immature Gran # (Auto) 0.02 K/uL (0.01-0.20) 07/02/24 00:55 PT 9.9 Seconds (9.0-12.0) 07/02/24 00:55 INR 0.9 (0.9-1.1) 07/02/24 00:55 Sodium 137 mmol/L (136-145) 07/02/24 00:55 Potassium 4.1 mmol/L (3.5-5.1) 07/02/24 00:55 Chloride 102 mmol/L (98-107) 07/02/24 00:55 Carbon Dioxide 27 mmol/L (21-32) 07/02/24 00:55 Anion Gap 8 (3-11) 07/02/24 00:55 BUN 30 mg/dl (6-23) H 07/02/24 00:55 Creatinine 1.02 mg/dl (0.6-1.2) 07/02/24 00:55 Est Cr Clr Drug Dosing 54.5 ml/min 07/02/24 00:55 eGFR 63.37 07/02/24 00:55 BUN/Creatinine Ratio 29.4 (10-20) H 07/02/24 00:55 Glucose 154 mg/dl (70-99(Fasting)) H 07/02/24 00:55 POC Glucose 258 mg/dl (70-99) H 07/02/24 11:55 Calcium 9.8 mg/dl (8.6-10.3) 07/02/24 00:55 Magnesium 1.6 mg/dl (1.7-2.4) L 07/02/24 03:35 Total Bilirubin 0.5 mg/dl (0.2-1.0) 07/02/24 00:55 AST 16 U/L (13-39) 07/02/24 00:55 ALT 11 U/L (7-52) 07/02/24 00:55 Alkaline Phosphatase 44 U/L (34-104) 07/02/24 00:55 Troponin I High Sens 14.0 pg/ml (0-14) 07/02/24 08:34 Total Protein 7.7 gm/dl (6.0-8.3) 07/02/24 00:55 Albumin 4.6 gm/dl (3.4-5.0) 07/02/24 00:55 Globulin 3.1 gm/dl (2.5-4.0) 07/02/24 00:55 Albumin/Globulin Ratio 1.5 (0.9-2) 07/02/24 00:55 Lipase 30 U/L (11-82) 07/02/24 00:55 Impressions Abdomen/Pelvis CTA 07/02/24 01:09 EXAM: CT angio abd pelvis wo/w con CLINICAL HISTORY: cp, sob, hx dissection TECHNIQUE: Contrast enhanced thin slice CT angiography scan of the abdominal aorta was performed with intravenous contrast. Angiographic images were processed, 3D MIP images were acquired for interpretation. Contiguous axial images were obtained. Reformatted coronal and sagittal images were also reviewed. If IV contrast material had not been administered, the likelihood of detecting abnormalities relevant to the patient's condition would have been substantially decreased. CT scan was performed according to ALARA (as low as reasonably achievable). COMPARISON: 13 July 2023. FINDINGS: Aortic dissection is noted extending from the descending thoracic aorta up to the left common iliac artery. No evidence of aortic rupture detected. No retroperitoneal hemorrhage is seen. Celiac axis, superior mesenteric artery, right renal artery, inferior mesenteric artery, lumbar artery and right common iliac artery are seen arising from the true lumen. Left renal artery is seen arising from the false lumen and the dissection flap is extending into the common iliac artery. Severe (95%-99%) focal stenosis is noted involving the origin of both internal iliac arteries. Severe hypoperfusion of the left renal artery is noted. Resultant atrophy with multiple cortical scars are noted involving the left kidney no corticomedullary differentiation is seen. Right kidney appears normally perfused with maintained corticomedullary differentiation. Rest of the solid abdominal organs do not reveal any significant abnormality. Bowel loops are grossly unremarkable. No evidence of ascites. Rest of the findings are unchanged. IMPRESSION: 1. Aortic dissection is noted extending from the descending thoracic aorta (upper most section of current study) up to the left common iliac artery. No evidence of aortic rupture detected. No retroperitoneal hemorrhage is seen. Stable in extent. 2. Significant hypoperfusion the false lumen is noted in the current study as compared to the previous. 3. Celiac axis, superior mesenteric artery, right renal artery, inferior mesenteric artery, lumbar artery and right common iliac artery are seen arising from the true lumen. 4. Left renal artery is seen arising from the false lumen and the dissection flap is extending into the common iliac artery. 5. Severe (95%-99%) focal stenosis is noted involving the origin of both internal iliac arteries. Relatively stable. 6. Severe hypoperfusion of the left renal artery is noted. Resultant atrophy with multiple cortical scars are noted involving the left kidney with no corticomedullary differentiation is seen. Hypoperfusion has significantly progressed as compared to the previous study. 7. Right kidney appears normally perfused with maintained corticomedullary differentiation. Rest of the findings are unchanged. Electronically signed by Naldo Lopez 07-02-2024 03:06 AM Chest CTA 07/02/24 01:09 EXAM: CT angio chest dissec wo/w con CLINICAL HISTORY: cp, sob, hx disssection TECHNIQUE: Contiguous axial images were obtained from the neck base through the upper abdomen following intravenous administration of iodinated contrast material. Angiographic images were processed, 3D MIP images were acquired for interpretation. If IV contrast material had not been administered, the likelihood of detecting abnormalities relevant to the patient's condition would have been substantially decreased. Coronal and sagittal 3-D MIPs were likewise performed and indicated to increase the sensitivity of detecting diffuse clinically relevant pathology. CT scan was performed according to ALARA (as low as reasonably achievable). COMPARISON: 14 July 2023. FINDINGS: Sternal sutures noted. Mild cardiomegaly detected with significant dilatation of the right cardiac Chambers. Aortic dissection is noted with dissecting/intimal flap extending from arch of the aorta distal to the origin of the left subclavian. The dissection flap is seen extending into the abdominal aorta, however, it is not included in the CT angiography study. No evidence of thrombosis of the false lumen is noted. No extension of the dissection flap into the arch vessels is seen. Ascending aorta is spared of the dissection. No evidence of aortic rupture detected. Celiac axis and superior mesenteric artery are arising from the true lumen. Significant hypoperfusion of the left kidney is noted, possibility due to underlying dissection with left renal artery arising from the false lumen. Position or ground-glass densities with interstitial thickening and subsegmental atelectasis is noted involving dependent portions of bilateral lungs. 5 mm of solid nodule is noted in the right middle lobe. Few enhancing nodules are noted in both lobe of thyroid glands. Suggested ultrasound correlation. The central airways are patent. There are no pleural effusions. No pneumothorax is seen. There are coronary artery and aortic atherosclerotic calcifications. No axillary or mediastinal adenopathy is identified. No aggressive appearing osseous lesions are identified. IMPRESSION: 1. [place] type B aortic dissection as described above. No significant interval change in the extent of the dissection is noted. 2. , the false lumen appears more hypoperfused as compared to the previous study. 3. Left kidney is severely hypoperfused in the current study as compared to the previous. 4. No significant attenuation changes of the true lumen as compared to the previous study. 5. Cardiomegaly with significant dilatation of the right cardiac Chambers. No significant interval change. Suggested echocardiography correlation. 6. No significant lung parenchymal abnormality detected. 7. Stable enhancing nodules in both lobes of thyroid gland. Suggested ultrasound correlation. 8. Stable 5 mm nodule in the right middle lobe. Rest of the findings are unchanged compared to the previous CT scan. Electronically signed by Naldo Lopez 07-02-2024 03:11 AM Chest X-Ray 07/02/24 01:09 EXAM: XR chest 1V portable CLINICAL HISTORY: Chest pain, nonspecific. TECHNIQUE: An X-ray image of the chest is obtained in AP projection. COMPARISON: Chest x-ray dated 12/11/2020. FINDINGS: Pulmonary Parenchyma: Bilateral perihilar mild congestion is seen. No evidence of consolidation, collapse, or focal opacities. No pulmonary nodules are identified. No evidence of pleural effusion or pleural thickening. Heart and Mediastinum: The heart is enlarged in size. The aortic knuckle is prominent. Unchanged. No mediastinal widening or masses. No hilar or mediastinal lymphadenopathy. Bony Thorax: Midline sternotomy wire sutures are noted. Bony thorax appears intact without fractures or deformities. Soft Tissues: Soft tissues overlying the chest wall are unremarkable. IMPRESSION: 1. No acute cardiopulmonary abnormalities are identified. 2. Cardiomegaly with perihilar congestion. Unchanged. 3. No significant changes noted as compared to the previous x-ray dated 12/11/2020. Electronically signed by Giuliano Morrison 07-02-2024 02:34 AM Medications Administered Current Inpatient Medications Acetaminophen (Acetaminophen 325 Mg Tab) 650 mg PO Q4H PRN PRN Reason: Pain or Fever Stop: 08/01/24 09:20 Amlodipine Besylate (Amlodipine Besylate 5 Mg Tab) 10 mg PO QAM [facility] Stop: 08/02/24 08:59 Dextrose (Dextrose 50% 50 Ml Syringe) 25 - 50 ml IV UD PRN; Protocol PRN Reason: Hypoglycemia Protocol Stop: 08/01/24 09:20 Glucagon (Glucagon For Inj 1 Mg Vial) 1 mg SQ UD PRN; Protocol PRN Reason: Hypoglycemia Protocol Stop: 08/01/24 09:20 Glucose (Glucose 40% Gel 15 Gm Tube) 15 - 30 gm PO UD PRN; Protocol PRN Reason: Hypoglycemia Protocol Stop: 08/01/24 09:20 Glucose (Glucose 10 Tab/Tube) 4 - 8 tab PO UD PRN; Protocol PRN Reason: Hypoglycemia Protocol Stop: 08/01/24 09:20 Insulin Aspart (Insulin Aspart Per Unit Charge) 0 units SC ACHS [facility] Stop: 08/01/24 11:29 Last Admin: 07/02/24 12:11 Dose: 9 units Insulin Glargine (Lantus Per Unit Charge) 10 units SC DAILY [facility] Stop: 08/01/24 12:04 Last Admin: 07/02/24 12:11 Dose: 10 units Insulin Glargine (Lantus Per Unit Charge) 0 units SC HS [facility]; Protocol Stop: 07/02/24 21:01 Losartan Potassium (Losartan Potassium 50 Mg Tab) 100 mg PO QAM [facility] Stop: 08/02/24 08:59 Magnesium Hydroxide (Magnesium Hydroxide Susp 30 Ml Udc) 30 ml PO Q12H PRN PRN Reason: Constipation Stop: 08/01/24 09:20 Magnesium Oxide (Magnesium Oxide 400 Mg Tab) 400 mg PO QAM [facility] Stop: 08/02/24 08:59 Metoprolol Tartrate (Metoprolol Tartrate 25 Mg Tab) 25 mg PO BID [facility] Stop: 08/01/24 09:59 Last Admin: 07/02/24 09:56 Dose: 25 mg Miscellaneous (Carbohydrates For Hypoglycemia ) 15 - 30 gm PO UD PRN PRN Reason: Hypoglycemia Protocol Stop: 08/01/24 09:20 Miscellaneous Information (Pharmacy Glycemic Mgmt Consult) 1 each N/A UD PRN PRN Reason: Consult Stop: 08/01/24 09:20 Ondansetron HCl (Ondansetron Inj 2 Mg/Ml 2 Ml Vial) 4 mg IV Q6H PRN PRN Reason: Nausea Stop: 08/01/24 09:20 Polyethylene Glycol (Polyethylene (Miralax) 17 Gm Pack) 17 gm PO DAILY PRN PRN Reason: Constipation Stop: 08/01/24 09:20 (2) Chest pain Chest pain type: unspecified Qualified Code(s): R07.9 - Chest pain, unspecified
--- NOTE | 2024-07-02 13:47 | Pharmacy Report ---
Pharmacy Glycemic Short Note 2 - Date of Service July 02, 2024 - Glycemic Short BSG Results (Last 24 hours): 07/02/24 07/02/24 00:55 11:55 Glucose 154 H POC Glucose 258 H OUTPATIENT ANTIDIABETIC REGIMEN: * metformin 1000 mg PO BIDM HbA1c: ordered for 07/03/24 ASSESSMENT: * is a 59 year old female who presents to ED with hypertensive urgency and chest pain * Patient has history of T2DM and is managed with metformin. HbA1c ordered for tomorrow. * Will utilize ~weight-based stress of 2 Novolog w/ conservative basal initially * Diet ordered PLAN FOR INPATIENT GLYCEMIC CONTROL: * Hold outpatient oral diabetes medications * Basal insulin * Lantus 10 units SC x 1 at time of consult * Lantus 0-5-10 units SC HS x 1 (see EHR for details) * Reassess in AM * Bolus insulin * NovoLog per scale ACHS or Q6hrs while NPO * Goal Range: Low 110 mg/dL - High 150 mg/dL * Correction Factor: 30 mg/dL/unit * Nutritional / Prandial insulin per carb ratio of 1 unit per 10 grams CHO consumed
--- OUTSIDE RECORDS SUMMARY | 2024-07-02 18:04 | External Medical Summary | Summary of Care ---
Author Name Unknown Organization [facility] Address [address] [place] [facility] [place] [address] Phone [phone] Care Team Providers Care Ranch Rider Name Role Phone Lisbet Reina Primary Care Provider Reason for Visit * Reason Onset Date Comments Health Maintenance 05/03/2024 Encounter Details Date Type Department Care Team (Late st Contact Info) Description 05/03/2024 Telephone Family Practice [facility] [address] [facility] [address] Lisbet Reina CRNP [address] [place] [address] Health Maintenance Allergies Active Allergy Reactions Criticality Noted Date Comments Latex Rash Medium 12/27/2020 Lisinopril Cough 06/06/2020 documented as of this encounter (statuses as of 05/03/2024) Medications GroupPriceTouch Ultra 2 w/Device Kit Use to test your blood sugar E11.9 1 Kit 2 Active OneTouch Delica Lancets 33G Use to test your blood sugar once daily E 11.9 100 Each 5 2 Active OneTouch Ultra Blue In Vitro Strip (Glucose Blood) Use to test your blood sugar daily E11.9 100 Strip 5 3 Active valACYclovir HCl 1 GM Oral Tablet (Valtrex)Indicat ions:Herpes labialis Take 2 Tablets by mouth in the morning and 2 Tablets before bedtime. for cold sores. 4 Tablet 11 3 Active Vitamin D (Cholecalciferol ) 25 MCG (1000 UT) Oral TabletIndication s:Vitamin D deficiency Take 1 Tablet by mouth every evening. 90 Tablet 1 3 Active amLODIPine Besylate 10 MG Oral Tablet (Norvasc)Indicat ions:HTN, goal below 130/80 Take 1 Tablet by mouth in the morning. 90 Tablet 1 3 Active Docusate Sodium 100 MG Oral Capsule (Colace) Take 1 Capsule by mouth in the morning and 1 Capsule before bedtime. 60 Capsule 11 3 Active Additional Information Patient not taking.Reported on 09/16/2023 Aspirin 81 MG Oral Tablet Delayed Release Take 1 Tablet by mouth in the morning. 3 Active Losartan Potassium 100 MG Oral Tablet (Cozaar) Take 1 Tablet by mouth in the morning. 90 Tablet 3 3 Active Dexcom G7 Sensor Use 1 sensor every 10 days E11.9 3 Each 11 4 Active metFORMIN HCl 1000 MG Oral Tablet (Glucophage)Sofía cations:Type 2 diabetes mellitus with hyperglycemia, without long-term current use of insulin (HCC) Take 1 Tablet by mouth 2 times a day with morning and evening meals. 180 Tablet 3 4 Active Trulicity 0.75 MG/0.5ML Subcutaneous Solution Pen-injector (Dulaglutide) Inject 0.75 mg under the skin once a week. 6 mL 3 4 Active documented as of this encounter (statuses as of 05/03/2024) Active Problems Problem Noted Date Diagnosed Date Dyslipidemia, goal LDL below 70 08/18/2023 History of compression fracture of spine 024 Cyst of kidney, acquired 07/28/2023 Right flank pain 07/28/2023 Personal history of fall 07/28/2023 Vitamin D deficiency 08/29/2022 Presence of other cardiac implants and grafts Age-related osteoporosis wit hout current pathological fracture 05/23/2022 Gastro-esophageal reflux disease without esophag itis 05/23/2022 Chronic pain of left ankle 05/23/2022 Herpes labialis 05/23/2022 DDD (degenerative disc disease), lumbar 09/08/19 21 Postcardiotomy syndrome 06/04/2020 S/P aortic dissection repair 06/04/2020 Type 2 diabetes mellitus wit hout complication, without long-term current use of insulin 05/11/2020 HTN, goal below 130/80 04/15/2020 Aortic dissection, thoracoabdominal 04/09/2020 documented as of this encounter (statuses as of 05/03/2024) Resolved Problems Problem Noted Date Diagnosed Date Resolved Date Ingrown toenail of left foot 08/29/2022 02/18/2023 Stage 3a chronic kidney disease 11/21/2021 11/21/2021 Right lumbar radiculopathy 09/07/2020 1 04/21/2022 Onychomycosis 09/07/2020 02/18/2023 Chest pain 04/15/2020 05/11/2020 documented as of this encounter (statuses as of 05/03/2024) Immunizations Name Administration Dates Next Due Seasonal Influenza, PF, 6 M & above, IM , (FluLaval or Fluzone) 04/13/2020(Deferred: Patient Refused) documented as of this encounter Social History Tobacco Use Types Packs/Day Years Used Date Smoking Tobacco: Never Smokeless Tobacco: Never Alcohol Use Standard Drinks/Week Comments No 0 (1 standard drink = 0.6 oz pur e alcohol) AUDIT-C Answer Date Recorded Frequency of Alcohol Consumption Never 01/29/2018 Average Number of Drinks Not on file 018 Frequency of Binge Drinking Not on file 01/14 PHQ-2 Answer Date Recorded PHQ Adult Total Score 0 11/21/2021 Hunger Vital Sign Answer Date Recorded Within the past 12 months, y ou worried that your food would run out before you got the money to buy more. Never true 11/22/19 22 Within the past 12 months, t he food you bought just didn't last and you didn't have money to get more. Never true 11/21/2021 Comments No Sex and Gender Information Value Date Recorded Sex Assigned at Not on file Legal Sex Female 5:49 AM EST Gender Identity Not on file Sexual Orientation Not on file documented as of this encounter Functional Status * Are you deaf or do you have serious difficulty hearing? Answer Date of Assessment Author No 04/15/2020 3:43 AM Carli Damon RN * Are you blind or do you have serious difficulty seeing, even when wearing glasses? Answer Date of Assessment Author No 04/15/2020 3:43 AM Carli Damon RN * Do you have serious difficulty walking or climbing stairs? (5 years old or older) Answer Date of Assessment Author No 04/15/2020 3:43 AM Carli Damon RN * Do you have difficulty dressing or bathing? (5 years old or older) Answer Date of Assessment Author No 04/15/2020 3:43 AM Carli Damon RN * Because of a physical, mental, or emotional condition, do you have difficulty doing errands alone such as visiting a doctor’s office or shopping? (15 years old or older) Answer Date of Assessment Author No 04/15/2020 3:43 AM Carli Damon RN documented as of this encounter Mental Status * Because of a physical, mental, or emotional condition, do you have serious difficulty concentrating, remembering, or making decisions? (5 years old or older) Answer Entry Date Author No 04/15/2020 3:43 AM Carli Damon RN documented in this encounter Miscellaneous Notes * Telephone Encounter - Beena Salas LPN - 05/03/2024 10:26 AM EST Care Gaps Comprehensive Care Outreach Last Office/Telemedicine Visit: 07/28/2023 (in office), Visit date not found (telemedicine) Next Office Visit: Visit date not found Hemoglobin AIC Results: Lab Results Component Value Date/Time HEMOGLOBIN A1C - [facility] 7.8 (H) 07/28/2023 09:14 AM HEMOGLOBIN A1C - [facility] 7.9 (H) 01/20/2023 09:40 AM HEMOGLOBIN A1C - [facility] 8.3 (H) 06/09/2022 08:04 AM HEMOGLOBIN A1C - [facility] 8.8 (H) 11/15/2019 01:52 PM HEMOGLOBIN A1C - [facility] 8.1 (H) 09/14/2018 09:15 AM HEMOGLOBIN A1C - [facility] 8.1 (H) 01/27/2018 08:29 PM BP Readings from Last 1 Encounters: 09/16/23 138/84 Reviewed Health Maintenance below: Health Maintenance Topic Date Due Hepatitis B Vaccine (1 of 3 - 19+ 3-dose series) Never done DTap/Tdap Vaccines (1 - Tdap) Never done Pneumococcal Vaccine: 50+ Years (1 of 2 - PCV) Never done Zoster Vaccines (1 of 2) Never done Diabetic Foot Exam 11/21/2022 Depression Screening 11/21/2022 Mammogram 11/25/2022 Diabetic Eye Exam 05/24/2023 Influenza Vaccine (FLU shot) (1) Never done COVID-19 Vaccine ( - season) Never done HbA1c 01/28/2024 GFR 02/19/2024 Colorectal Cancer Screening 04/13/2024 Albumin/Creatinine Ratio 07/27/2024July Mamm Eye Labs Cologuard due Care Gap Outreach Action Taken: Left message and MyChart message sent documented in this encounter Plan of Treatment Scheduled Procedures Name Priority Associated Diagnoses Date/Ti me COLONOSCOPY FLEXIBLE PROXIMA L DIAGNOSTIC Recall Special screening for malignant neoplasms, colon Health Maintenance Due Date Last Done Comments DTap/Tdap Vaccines (1 - Tdap) 01/17/1984 Hepatitis B Vaccine (1 of 3 - 19+ 3-dose series) 01/17/1984 Pneumococcal Vaccine: 50+ Years (1 of 2 - PCV) 01/17/1984 Colonoscopy 2010 Fecal Occult Blood Test 2010 Sigmoidoscopy 2010 Zoster Vaccines (1 of 2) 2015 Depression Screening 11/21/2022 11/21/2021 Diabetic Foot Exam 11/21/2022 11/21/2021 Mammogram 11/25/2022 11/25/2021, 11/14, 07/19/2020, Additional history exists Diabetic Eye Exam 05/24/2023 05/23/2022, , 07/05/2020 COVID-19 Vaccine ( - season) 2023 Influenza Vaccine (FLU shot) (#1) 2023 HbA1c 01/28/2024 07/28/2023, 11/09/2022, 06/09/2022, Additional history exists GFR 02/19/2024 02/18/2023, 06/15, 06/09/2022, Additional history exists Cologuard 04/13/2024 04/13/2021, 03/16, 04/02/2021 Colorectal Cancer Screening 04/13/2024 Albumin/Creatinine Ratio 07/27/2024 024, 01/20/2023, 11/21/2021, Additional history exists DXA Scan 02/16/2025 02/16/2023, 06/2022, 02/11/2021, Additional history exists Lipid Panel 06/10/2027 06/09/2022, 04/17, 11/15/2019, Additional history exists VITAMIN D LEVEL ONCE IN A LIFETIME-USE SMARTSET# 15640 Completed 02/18/2023, 06/09/2022, 05/06/2021, Additional history exists HPV (Gardasil) Vaccine Aged Out No lo nger eligible based on patient's age to complete this topic MENINGOCOCCAL (MENACTRA/MENVEO) Aged Out No longer eligible based on patient's age to complete this topic Meningitis B Vaccine (Bexsero/Trumemba) Aged Out No longer eligible based on patient's age to complete this topic documented as of this encounter Medical Devices Implanted Type Area Equip Tech Device Identifier Shelf Expiration Date Model / Serial / Lot Suture Steel 6 B&S19 M654g - [id number] Implanted:Qty : 4 on 04/08/2020 by True Michele MD at [place] [facility] [place] N/A: Sternum JNJ : [employer] 09/12/2024 M654G / / [id number] Suture Steel 6 B&S19 M654g - [id number] Implanted:Qty : 3 on 04/08/2020 by True Michele MD at OR [facility] [place] N/A: Sternum JNJ : [employer] 11/13/2024 M654G / / [id number] Graft Gelweave 8x15 [id number] - [id number] - [id number] Implanted:Qty : 1 on 04/08/2020 by True Michele MD at OR [facility] [place] Right: Axillary Artery [employer] : CARDIO SYS [id number] 10/13/2022 [id number] / [id number] / [id number] [place] Ptfe 6x6in X5 - [id number] Implanted:Qty : 1 on 04/08/2020 by True Michele MD at OR [facility] [place] N/A: Aorta CR BARD : PERIPHER[employer]ASC[employer] 05/13/2024 [id number] / / [id number] Graft Gelweave 28x12.5 [id number] - [id number] - [id number] Implanted:Qty : 1 on 04/08/2020 by True Michele MD at [place] [facility] [place] N/A: Aorta [employer] : CARDIO SYS [id number] 10/13/2021 [id number] / [id number] / [id number] documented as of this encounter Advance Directives * Full Code (Latest Code Status on File) Date Activated Date Inactivated Comments 04/15/2020 3:41 AM 04/18/2020 10:08 PM This order r eflects the patients wishes and were consensually agreed upon. * Full Code Date Activated Date Inactivated Comments 04/08/2020 11:31 AM 04/13/2020 10:13 PM This order reflects the patients wishes and were consensually agreed upon. * Full Code Date Activated Date Inactivated Comments 04/08/2020 5:48 AM 04/08/2020 11:31 AM This order reflects the patients wishes and were consensually agreed upon. Care Teams Ranch Rider Relationship Specialty Start Date End Date Lisbet Reina CRNP [address] [address] PCP - General Nurse Practitioner 02/16/23 documented as of this encounter
--- OUTSIDE RECORDS SUMMARY | 2024-07-02 18:04 | External Medical Summary | Summary of Care ---
Author Name Unknown Organization [facility] Address [address] [place] [address] Phone [phone] Care Team Providers Care Aoc Aadc Operations Staff Officer Name Role Phone Lisbet Reina Primary Care Provider Reason for Visit * Reason Onset Date Comments Health Maintenance 06/20/2024 Encounter Details Date Type Department Care Team (Late st Contact Info) Description 06/20/2024 Telephone Family Practice [facility] [address] [facility] [address] [facility] [address] [facility] [address] Health Maintenance Allergies Active Allergy Reactions Criticality Noted Date Comments Latex Rash Medium 12/27/2020 Lisinopril Cough 06/06/2020 documented as of this encounter (statuses as of 06/20/2024) Medications DNN CorpTouch Ultra 2 w/Device Kit Use to test [...] as of this encounter (statuses as of 06/20/2024) Active Problems Problem Noted Date Diagnosed Date [...] as of this encounter (statuses as of 06/20/2024) Resolved Problems Problem Noted Date Diagnosed Date Resolved Date Ingrown toenail of left foot 08/29/2022 02/18/2023 Stage 3a chronic kidney disease 11/21/2021 11/21/2021 Right lumbar radiculopathy 09/07/2020 1 04/21/2022 Onychomycosis 09/07/2020 02/18/2023 Chest pain 04/15/2020 05/11/2020 documented as of this encounter (statuses as of 06/20/2024) Immunizations Name Administration Dates Next Due Seasonal [...] Telephone Encounter - Beena Salas LPN - 06/20/2024 9:13 AM EDT Care Gaps Comprehensive Care Outreach Last Office/Telemedicine [...] 11/21/2022 Mammogram 11/25/2022 Diabetic Eye Exam 05/24/2023 COVID-19 Vaccine ( season) Never done HbA1c 01/28/2024 GFR 02/19/2024 Colorectal Cancer Screening 04/13/2024 Albumin/Creatinine Ratio 07/27/2024 Ov Mamm Lab Colon cologuard due Care Gap Outreach Action Taken: Left message documented in this encounter Plan of Treatment [...] Exam 05/24/2023 05/23/2022, , 07/05/2020 COVID-19 Vaccine () 11/15/2023 HbA1c 01/28/2024 07/28/2023, 11/0 09/2022, 06/09/2022, Additional history exists GFR 02/19/2024 02/18/2023, 04/2 06/2022, 06/09/2022, Additional history exists Cologuard 04/13/2024 04/13/2021, 03/16, 04/02/2021 Colorectal Cancer Screening 04/13/2024 Albumin/Creatinine Ratio 07/27/2024 024, 01/20/2023, 11/21/2021, Additional history exists Influenza Vaccine (FLU shot) (Season Ended) 2024 DXA Scan 02/16/2025 02/16/2023, 06/2022, 02/11/2021, Additional history exists Lipid Panel 06/10/2027 06/09/2022, 04/17, 11/15/2019, Additional history exists VITAMIN D LEVEL ONCE IN A LIFETIME-USE SMARTSET# 43942 Completed 02/18/2023, 06/09/2022, 05/06/2021, Additional history exists [...] this encounter Medical Devices Implanted Type Area Slate Worker Device Identifier Shelf Expiration Date Model / Serial / Lot Suture Steel 6 B&S19 M654g - [id number] Implanted:Qty : 4 on 04/08/2020 by True Michele MD at OR [facility] [place] N/A: Sternum JNJ : [employer] 09/12/2024 M654G / / [id number] Suture Steel 6 B&S19 M654g - [id number] Implanted:Qty : 3 on 04/08/2020 by Treu Michele MD at OR [facility] [place] N/A: Sternum JNJ : [employer] 11/13/2024 M654G / / [id number] Graft Gelweave 8x15 [id number] - [id number] - [id number] Implanted:Qty : 1 on 04/08/2020 by True Michele MD at OR [facility] [place] Right: Axillary Artery [employer] : CARDIO SYS [id number] 10/13/2022 [id number] / [id number] / [id number] [place] Ptfe 6x6in X5 - [id number] Implanted:Qty : 1 on 04/08/2020 by True Michele MD at OR [facility] [place] N/A: Aorta CR BARD : PERIPHERAL VASCULAR 05/13/2024 [id number] / / [id number] Graft Gelweave 28x12.5 810535 - [id number] - [id number] Implanted:Qty : 1 on 04/08/2020 by True Michele MD at OR [facility] [place] N/A: Aorta [employer] : CARDIO SYS [id number] 10/13/2021 [id number] / [id number] / [id number] documented as of this encounter Advance [...] and were consensually agreed upon. Care Teams Aoc Aadc Operations Staff Officer Relationship Specialty Start Date End Date Lisbet Reina CRNP [address] [address] PCP - General Nurse Practitioner 02/16/23 documented as of this encounter
--- OUTSIDE RECORDS SUMMARY | 2024-07-02 18:04 | External Medical Summary | Summary of Care ---
Author Name Unknown Organization [facility] Address [address] [place] [address] Phone [phone] Care Team Providers Care Molded Goods Controls Operator Name Role Phone Lisbet Reina Primary Care Provider Encounter Details Date Type Department Care Team (Late st Contact Info) Description 04/05/2024 Population Health External Data Unspecified Department Allergies Active Allergy Reactions Criticality Noted Date Comments Latex Rash Medium 12/27/2020 Lisinopril Cough 06/06/2020 documented as of this encounter (statuses as of 04/05/2024) Medications OneTouch Ultra 2 w/Device Kit Use to test [...] as of this encounter (statuses as of 04/05/2024) Active Problems Problem Noted Date Diagnosed Date [...] 05/23/2022 DDD (degenerative disc disease), lumbar 09/08/19 Postcardiotomy syndrome 06/04/2020 S/P aortic dissection repair 06/04/2020 Type 2 diabetes mellitus wit hout complication, without long-term current use of insulin 05/11/2020 HTN, goal below 130/80 04/15/2020 Aortic dissection, thoracoabdominal 04/09/2020 documented as of this encounter (statuses as of 04/05/2024) Resolved Problems Problem Noted Date Diagnosed Date Resolved Date Ingrown toenail of left foot 08/29/2022 02/18/2023 Stage 3a chronic kidney disease 11/21/2021 11/21/2021 Right lumbar radiculopathy 09/07/2020 1 04/21/2022 Onychomycosis 09/07/2020 02/18/2023 Chest pain 04/15/2020 05/11/2020 documented as of this encounter (statuses as of 04/05/2024) Immunizations Name Administration Dates Next Due Seasonal [...] of Assessment Author No 04/15/2020 3:43 AM EST Carli Patel RN * Are you blind or do you have serious difficulty seeing, even when wearing glasses? Answer Date of Assessment Author No 04/15/2020 3:43 AM EST Carli Patel RN * Do you have serious difficulty [...] Carli Damon RN documented in this encounter Plan of Treatment [...] 05/24/2023 05/23/2022, , 07/05/2020 COVID-19 Vaccine ( season) 2023 Influenza Vaccine (FLU shot) (#1) 2023 HbA1c 01/28/2024 07/28/2023, 110 09/2022, 06/09/2022, Additional history exists GFR 02/19/2024 02/18/2023, 2 06/2022, 06/09/2022, Additional history exists Cologuard 04/13/2024 04/13/2021, 03/16, 04/02/2021 Colorectal Cancer Screening 04/13/2024 Albumin/Creatinine Ratio 07/27/2024 024, 01/20/2023, 11/21/2021, Additional history exists DXA Scan 02/16/2025 02/16/2023, 06/2022, 02/11/2021, Additional history exists Lipid Panel 06/10/2027 06/09/2022, 04/17, 11/15/2019, Additional history exists VITAMIN D LEVEL ONCE IN A LIFETIME-USE SMARTSET# 28179 Completed 02/18/2023, 06/09/2022, 05/06/2021, Additional history exists HPV (Gardasil) Vaccine Aged Out No lo nger eligible based on patient's age to complete this topic MENINGOCOCCAL (MENACTRA/MENVEO) Aged Out No longer eligible based on patient's age to complete this topic documented as of this encounter Medical Devices Implanted Type Area Cloth Seconds Sorter Device Identifier Shelf Expiration Date Model / Serial / Lot Suture Steel 6 B&S19 M654g - [id number] Implanted:Qty : 4 on 04/08/2020 by True Michele MD at [place] [facility] [place] N/A: Sternum JNJ : [employer] 09/12/2024 M654G / / [id number] Suture Steel 6 B&S19 M654g - [id number] Implanted:Qty : 3 on 04/08/2020 by True Michele MD at [place] [facility] [place] N/A: Sternum JNJ : [employer] 11/13/2024 M654G / / [id number] Graft Gelweave 8x15 [id number] - [id number] - [id number] Implanted:Qty : 1 on 04/08/2020 by True Michele MD at [place] [facility] [place] Right: Axillary Artery [employer] : CARDIO SYS [id number] 10/13/2022 [id number] / [id number] / [id number] [place] Ptfe 6x6in X5 - [id number] Implanted:Qty : 1 on 04/08/2020 by True Michele MD at OR [facility] [place] N/A: Aorta CR BARD : PERIPHERAL VASCULAR 05/13/2024 [id number] / / [id number] Graft Gelweave 28x12.5 [id number] - [id number] - [id number] Implanted:Qty : 1 on 04/08/2020 by True Michele MD at OR [facility] [place] N/A: Aorta [employer] : CARDIO SYS [id number] 10/13/2021 [id number] / [id number] / [id number] documented as of this encounter Advance [...] and were consensually agreed upon. Care Teams Molded Goods Controls Operator Relationship Specialty Start Date End Date Lisbet Reina CRNP [address] [place] [address] PCP - General Nurse Practitioner 02/16/23 documented as of this encounter
[2024-07-02] MEDS: ACETAMINOPHEN 325 MG TAB PO PRN (18:10)
[2024-07-02] MEDS ORDERED: traMADol HCL 50 MG TABLET PO PRN (18:29)
[2024-07-03 03:17] VITALS: RESP 18; TEMP 97.9
[2024-07-03 06:37] LABS: Hematocrit (blood only) 37.9 % (37.0-47.0); Hemoglobin 12.6 g/dl (12.0-16.0); Mean Corpuscular Hemoglobin 28.4 pg (25.0-34.0); Mean Corpuscular Hgb Conc 33.2 g/dL (32.0-36.0); Mean Corpuscular Volume 85.6 fL (80.0-100.0); Mean Platelet Volume 10.2 fL (9.4-12.4); Platelet Count 250 K/uL (130-400); RDW Coefficient of Variation 13.4 % (11.5-14.5); RDW Standard Deviation 41.6 fL (36.4-46.3); Red Blood Count 4.43 M/uL (4.20-5.40); White Blood Count 4.68 K/ul (4.8-10.8)
[2024-07-03 06:44] LABS: BUN Creatinine Ratio 28.7 (10-20); Calcium 9.3 mg/dl (8.6-10.3); Chol HDL Ratio 2.7 (0-5); Creatinine Clr Calc Pharmacy 59.1 ml/min; Potassium 4.1 mmol/L (3.5-5.1)
[2024-07-03 06:59] LABS: Thyroid Stimulating Hormone 1.315 uIu/ml (0.300-4.500)
--- NOTE | 2024-07-03 07:18 | Electrocardiogram Report ---
Test Reason : Blood Pressure : */* mmHG Vent. Rate : 67 BPM Atrial Rate : 67 BPM P-R Int : 178 ms QRS Dur : 80 ms QT Int : 428 ms P-R-T Axes : 65 -9 61 degrees QTcB Int : 452 ms Normal sinus rhythm Poor R wave progression, consider anterior IL vs. lead placement vs. LVH When compared with ECG of 02-Jul-2024 00:49, Premature atrial complexes are no longer Present Confirmed by Charly Ocasio ([id number]) on 07/03/2024 7:17:48 AM Referred By: REFERRED SELF Confirmed By: Charly Ocasio
[2024-07-03 07:39] LABS: Estimated Average Glucose 197 mg/dl; Hemoglobin A1C 8.5 % (4.5-5.6)
--- NOTE | 2024-07-03 08:28 | Discharge Summary ---
<Statement entered by Jhonathan Lewis, - 07/03/24 12:07> I have seen and examined the patient and have discussed the case with the advance practice provider. I have reviewed the advanced practitioner's documentation, and I agree with, and take responsibility for that plan of care. Patient feeling significantly improved. Eager to get home. Went over with her in detail need for compliance with all of her blood pressure medications on a daily basis. Stressed to her the importance of blood pressure control in the setting of her aortic dissection. Can continue to use Tylenol for her headache and pains. Discussed plan for discharge as outlined below I spent a total of 17 minutes coordinating, documenting, and providing care for this patient excluding time spent by another provider/QHP. Discharge Summary Date of Service July 03, 2024 Principal Dx & Hospital Course #1 = Principal Diagnosis (1) Chest pain: (2) Hypertensive urgency: (3) Thoracic aortic dissection: (4) Left renal atrophy: Alma Rosa Rogel is a medically complex 59y/o F with PMHx significant for type A thoracic aortic dissection s/p emergent surgical repair with replacement of the ascending aorta and hemiarch utilizing a 28mm Gelweave graft in March 2020 with postoperative course complicated by postpericardiotomy syndrome with pericardial and pleural effusions including recurrent left pleural effusion requiring thoracentesis in May 2020, residual aortic dissection from aortic arch down to LCIA which has been present on prior imaging since March 2020, 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 Initially presented with chest pain, suspect secondary to hypertension as this resolved with improvement in her blood pressure control. ACS ruled out. Updated imaging revealed no significant interval change in the extent of her residual aortic dissection when compared to prior imaging completed in June 2023. There was no evidence of aortic rupture or retroperitoneal hemorrhage. She does have known atrophy of the left kidney in the setting of underlying hyperperfusion of the left renal artery due to her significant vascular disease, however updated imaging did reveal this has significantly progressed when joseph red to her prior imaging completed in June 2023. This was discussed with the patient in great detail with strong recommendation to follow-up with her primary vascular surgeon in the outpatient setting to address any possible indication for intervention regarding this. Renal function remained stable. Seen and evaluated by cardiology. Will be discharged on the following antihypertensive regimen: losartan 100 mg daily, amlodipine 10 mg daily and Toprol-XL 75 mg daily. Blood pressure significantly improved at time of discharge. Continually reinforced importance of adherence with antihypertensive regimen with the patient given her previous history of medication noncompliance. Patient expressed understanding and was also encouraged to keep a blood pressure log at home to bring with her to her PCP follow-up appointment (a blood pressure log handout was provided to her prior to discharge). Lipid panel updated and WNL. Patient educated on the warning signs and symptoms of possible aortic rupture including sudden-onset severe chest or back pain, pain that spreads into the jaw/neck/shoulder/belly/legs, shortness of breath or difficulty breathing, dizziness/fainting or drop in blood pressure, rapid heartbeat or feeling weak, cold/pale/sweaty skin and numbness/weakness on one side of the body. (5) Type 2 diabetes mellitus: Poorly controlled. Hgb A1c 7.8% as of 11 months ago; updated Hgb A1c of 8.5% this admission which was discussed with the patient. Can resume home metformin on discharge. Patient encouraged to discuss possible need for additional glycemic agents with her PCP for better BSG control to which she expressed understanding. (6) Multiple thyroid nodules: Seen on prior chest CTA imaging in August 2023 per outpatient chart review. TSH WNL. Appear stable on repeat imaging done this admission. Suggest outpatient thyroid US for further evaluation - to be arranged by PCP. (7) Lung nodule: 2-3mm solid nodules in YOLANDA and 7mm nodule in RUL node on prior chest CTA from August 2020. RUL nodule unchanged on repeat chest CTA done in August 2023 which also noted scattered sub 2mm pulmonary nodules. Appear stable on repeat imaging done this admission. Suggest outpatient monitoring to ensure stability - to be arranged by PCP. PCP: MARKO Marie Disposition: Patient is being discharged home in good condition and expressed understanding with arranging a PCP follow-up appointment within the next 1 to 2 weeks. Patient seen in collaboration with Dr. Lewis. Please see addendum. I spent a total of 70 minutes coordinating, documenting, and providing care for this patient excluding time spent in the performance of separately billed services or time spent by another provider/QHP. This included personally reviewing all current laboratories and imaging studies, medical reconciliation, outpatient chart review and discussion with specialists. This chart was completed in part utilizing Speech Voice Recognition Software. Grammatical errors, random word insertions, pronoun errors, and incomplete sentences are an occasional consequence of this system due to software limitations, ambient noise, and hardware issues. Any formal questions or concerns about the content, text, or information contained within the body of this dictation should be directly addressed to the provider for clarification. Notes For Next Care Provider Patient given BP log handout to document her daily BP trend with new medication changes - will need to review this with her. Would benefit from thyroid US given evidence of multiple nodules on imaging completed during this admission. Continue routine monitoring of known lung nodules as well. Will need to schedule routine yearly cardiology follow-up appointment. Would also strongly benefit from arranging a routine follow-up appointment with her primary outpatient vascular surgeon. Medication Changes From Visit Toprol XL 75mg daily Admission HPI Per Admitting Provider Alma Rosa Rogel is a medically complex 59y/o F with PMHx significant for type A thoracic aortic dissection s/p emergent surgical repair with replacement of the ascending aorta and hemiarch utilizing a 28mm Gelweave graft in March 2020 with postoperative course complicated by postpericardiotomy syndrome with pericardial and pleural effusions including recurrent left pleural effusion requiring thoracentesis in May 2020, residual aortic dissection from aortic arch down to LCIA which has been present on prior imaging since March 2020, 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 History obtained from the patient, discussion with ED provider and associated chart review. Prominent vascular history including an acute type A thoracic aortic dissection s/p emergent surgery with replacement of ascending and hemiarch with a 28mm Gelweave graft and resuspension of the aortic valve in March 2020 with postoperative course complicated by postpericardiotomy syndrome with pericardial and pleural effusions. Also then with a recurrent left-sided pleural effusion requiring thoracentesis in May 2020. Patient came to the ED for evaluation as she has recently been experiencing substernal, achy chest pain with coinciding SOB and palpitations over the past 2 days. Now reporting resolution of these symptoms at the time of our conversation ; however of note, she described the pain as feeling different than what she experienced during her dissection back in March 2020. Denies any sudden, severe stomach pain. Also denies any loss of consciousness, visual disturbances or "tearing sensation" in her back. BP was drastically elevated at 219/116 upon her arrival to the ED which has since improved at the time of our conversation to 141/85 following resolution of her chest pain with PRN analgesia that was previously administered. Patient endorses feeling quite anxious with being admitted to hospital given her prior complications and prolonged hospital stays, however, she expresses understanding of her underlying condition and the crucial need for close monitoring therefore she is agreeable with staying. Follows with Dr. Goff of [facility] on an outpatient basis and most recently saw Dr. Sohail Akers of [facility] at [facility] in September 2023. Updated chest CTA and abdomen/pelvis CTA imaging studies performed in the ED revealed no significant interval change in the extent of her residual aortic dissection when compared to prior imaging completed in June 2023. There is no evidence of aortic rupture or retroperitoneal hemorrhage. Has known atrophy of the left kidney ISO underlying hypoperfusion of the left renal artery however this appears to have significantly progressed when compared to her prior imaging completed in June 2023. ED provider, Dr. Farnsworth, discussed these findings with the on-call vascular surgeon at [facility], Dr. Curtis, to determine if it would be appropriate to have the patient admitted here. Dr. Curtis feels her CTA findings are currently stable and that the patient can be admitted here for close monitoring and management of her hypertensive urgency. No prior cigarette or alcohol use. Takes losartan 100mg daily and amlodipine 10mg daily. Reports checking her BP at least once a day and that it typically trends around the 140s/70s-80s. Endorses experiencing a cough with GUY inhibitor use. Fluent in both [place] and [place] Citizen. Was born and lived in [place] previously. Has been living in the [facility] for over 20 years. Has 2 children. Admission Exam Per Admitting Provider General: Middle-aged F. NAD. Sitting up in bed. Tearful at times 2/2 hospital- related anxiety but very pleasant. A&Ox4. HEENT: Normocephalic, atraumatic. Conjunctivae normal. External ear and nose normal, oropharynx normal. Respiratory: Normal respiratory effort, lungs clear to auscultation bilaterally. No accessory muscle use, on RA and saturating well. Cardiovascular: Regular rate and rhythm, normal peripheral pules. + loud S1 and S2 2/2 known aortic dissection. + sternotomy scar. Abdomen/GI: Normal bowel sounds, soft, nondistended, nontender to palpation in all quadrants. Extremities/MSK: No cyanosis or clubbing, extremities motor strength intact, moves all extremities. No BLE edema. Neurologic: No overt focal deficits, CN's II-XI not formally tested but appear grossly intact bilaterally. Discharge Exam General: Middle-aged F. NAD. Sitting up in bed. A&Ox4. Very pleasant and engaged in conversation. HEENT: Normocephalic, atraumatic. Conjunctivae normal. External ear and nose normal, oropharynx normal. Respiratory: Normal respiratory effort, lungs clear to auscultation bilaterally. No accessory muscle use, on RA and saturating well. Cardiovascular: Regular rate and rhythm, normal peripheral pules. + loud S1 and S2 2/2 known aortic dissection. + sternotomy scar. Abdomen/GI: Normal bowel sounds, soft, nondistended, nontender to palpation in all quadrants. Extremities/MSK: No cyanosis or clubbing, extremities motor strength intact, moves all extremities. No BLE edema. Neurologic: No overt focal deficits, CN's II-XI not formally tested but appear grossly intact bilaterally. Updated Medication List Medication Instructions Recorded Confirmed Type amlodipine 10 mg tablet 10 mg PO QAM 01/02/22 07/02/24 History metformin 1,000 mg tablet 1,000 mg PO BIDM 01/02/22 07/02/24 History losartan 100 mg tablet 100 mg PO QAM 07/02/24 07/02/24 History magnesium oxide 400 mg (241.3 mg 400 mg PO QAM #30 tabs 07/03/24 Rx magnesium) tablet metoprolol succinate 25 mg 75 mg (3 x 25 mg) PO QAM #90 tabs 04/20/25 Rx tablet,extended release 24 hr Hospital Stay Data Consultations 07/02/24 07:59 ED Decision to Admit Stat 07/02/24 08:28 Consult Cardiology Routine Diagnostic Imagining Performed 07/02/24 01:09 CT angio abd pelvis wo/w con Stat CT angio chest dissec wo/w con Stat Pending Results Patient Have Any Pending Studies at Discharge: No Discharge Instructions Given to Patient (Per Discharging Provider) [address] were admitted to [facility] for management of your significantly elevated blood pressure. Please continue taking the following blood pressure medications as prescribed: amlodipine 10mg once daily, losartan 100mg once daily and metoprolol tartrate 75mg once daily. It is extremely important that you continue taking the above blood pressure medications as prescribed. When you have an aortic dissection, theres already a tear in the wall of your aorta. Think of the aorta like a hose if theres a split in the inner lining, pressure inside that hose can make the tear worse. High blood pressure means your blood is pushing harder against the torn area of your aorta. If the dissection spreads or the aortic wall gives way, it can lead to a rupture where blood leaks out of the aorta. A rupture is a life-threatening emergency and needs immediate medical attention. Your new medications have been sent to [facility] here in [place] - please pickup driver these medications MARVIN. RECOMMENDATIONS FOR FOLLOW-UP: Please call your PCP's office @ [phone] to schedule a follow-up appointment within the next 1-2 weeks. Call 911 or go to the emergency room immediately if you experience: * Sudden, severe chest or back pain (often described as tearing or ripping). * Pain that spreads into the jaw, neck, shoulder, belly, or legs. * Shortness of breath or difficulty breathing. * Dizziness, fainting, or a drop in blood pressure. * Rapid heartbeat or feeling weak. * Cold, pale, or sweaty skin. * Numbness or weakness on one side of the body. Do not wait! If something feels very wrong, seek emergency help right away. Please take good care of yourself. It has been a pleasure taking care of you. If you have any questions regarding your recent hospitalization please contact [facility] and request Magda Padilla @ [phone]. Total Time Total Time Spent Total Time Spent (In Minutes): 70
[2024-07-03 08:37] VITALS: BP 164/87; PULSE 72; O2SAT 96
[2024-07-03] MEDS: METOPROLOL SUCC 25MG EXT REL TAB PO SCH (08:38)
[2024-07-03] MEDS: LOSARTAN POTASSIUM 50 MG TAB PO SCH (08:40)
[2024-07-03] MEDS: MAGNESIUM OXIDE 400 MG TAB PO SCH (08:40)
[2024-07-03] MEDS: amLODIPine BESYLATE 5 MG TAB PO SCH (09:24)
[2024-07-03] MEDS: KETOROLAC TROMETHAMINE 10 MG TABLET PO STA (10:18)
--- NOTE | 2024-07-04 14:27 | Coding Query ---
CODING QUERY FOR UNCONTROLLED DIABETES To promote full compliance with coding requirements relating to patient care, provider participation is requested in all cases of youth agent uncertainty. Please assist us with the question(s) below: Coding Question: The term poorly controlled Diabetes was used throughout the record. To be able to code this diagnosis properly, could you please clarify the diagnosis below: ( ) poorly controlled Diabetes meaning hypoglycemia ( x ) poorly controlled Diabetes meaning hyperglycemia ( ) Other (please specify) Principal Diagnosis: "that condition established after study, to be chiefly responsible for occasioning the admission of the patient to the hospital for care." Co-Existing Principal Diagnosis: "when two or more diagnoses equally meet the criteria for principal diagnosis as determined by the circumstances of admission, diagnostic work up, and/or therapy provided, and the Alphabetic Index, Tabular List, or another coding guideline does not provide sequencing direction, any one of the diagnoses may be sequenced first." "When the physician has documented what appears to be a current diagnosis in the body of the record, but has not included the diagnosis in the final diagnostic statement, the physician should be asked whether the diagnosis should be added." (Source Coding [facility] 2 QTR90. p3-4) CHITO
== END 2024-07-03 11:30 | disposition home or self-care (01) | DRG 305 ==
LOC: ED 00:35 → EDINP 08:22 → 4W 16:35